=== PATIENT | male | born 1945 | race Caucasian/White ===

== ENCOUNTER 2023-11-21 08:39 | Outpatient (CLI) | payer OTHER, SELFPAY ==
[2023-11-21 10:29] LABS: Basophils Absolute Auto 0.1 K/mm3 (0.0-0.1); Basophils Percent Auto 0.8 % (0.2-1.2); Eosinophils Absolute Auto 0.5 K/mm3 (0-0.3); Eosinophils Percent Auto 8.2 % (0-4.4); Hematocrit 36.9 % (42.0-52.0); Hemoglobin 10.9 g/dL (14.0-18.0); Immature Granulocyte Absolute 0.01 K/mm3 (0.00-0.031); Immature Granulocyte Percent A 0.2 % (0-0.5); Lymphocytes Absolute Auto 1.42 K/mm3 (0.9-3.2); Lymphocytes Percent Auto 23.4 % (18.3-44.2); Mean Corpuscular HGB Conc 29.5 g/dl (32-36); Mean Corpuscular Volume 81.1 fl (80-100); Mean Platelet Volume 10.8 fl (7.4-10.4); Monocytes Absolute Auto 0.3 K/mm3 (0.1-0.6); Monocytes Percent Auto 5.6 % (2.6-8.5); Neutrophils Absolute Auto 3.8 K/mm3 (1.3-6.7); Neutrophils Percent Auto 61.8 % (45.5-73.1); Platelet Count Result 223 k/mm3 (150-375); Red Blood Count 4.55 M/mm3 (4.6-6.20); Red Cell Distribution Width 18.1 % (11.5-14.5); White Blood Count 6.1 K/mm3 (4.5-10.0)
[2023-11-21 10:50] LABS: Alanine Aminotransferase 15 U/L (6-50); Albumin Level 3.9 g/dL (3.5-5.1); Alkaline Phosphatase 86 U/L (38-126); Anion Gap 10 mmol/L (4-12); Aspartate Amino Transferase 39 U/L (17-59); Bilirubin,Total 0.4 mg/dL (0.2-1.3); Blood Urea Nitrogen 10 mg/dL (9-20); Calcium 8.5 mg/dL (8.4-10.2); Carbon Dioxide 23 mmol/L (22-30); Chloride 105 mmol/L (98-107); Estimated Glomerular Filt Rate > 60; Glucose 122 mg/dL (65-110); Potassium 3.8 mmol/L (3.4-5.0); Sodium 138 mmol/L (137-145)
[2023-11-21 10:54] LABS: Platelet Estimate Adequate (Adequate)
[2023-11-21 10:55] LABS: Anisocytosis 1+; Hypochromasia 1+; Ovalocytes 1+; Schistocytes None Seen
== END 2023-11-21 08:40 | disposition home or self-care (01) ==
PROVIDERS: PCP Internal Medicine; Visit Provider Nurse Practitioner
DX: M25.562 Pain in left knee (principal); G89.29 Other chronic pain; Z13.29 Encounter for screening for other suspected endocrine disorder
CPT/HCPCS: 36415; 80053; 85025

== ENCOUNTER 2024-06-23 08:49 | Outpatient (CLI) | payer OTHER, SELFPAY ==
--- NOTE | ~2024-06-23 | CT_ITS ---
EXAMINATION:CT diagnostic chest wo con DATE: 06/23/2024 09:12 INDICATION: Solitary pulmonary nodule. TECHNIQUE: Computed tomography (CT) of the chest was performed without intravenous contrast. Automate d exposure control and iterative reconstruction technique were employed. The dose-length product (DLP ) was 110.72 mGy-cm. COMPARISON: None. FINDINGS: There is mild emphysema. There is a 9 mm nodule in right middle lobe abutting the pleura. T here is a 6 mm nodule in right lower lobe. There is mild atelectasis on the left. A calcified left tiarra ng nodule and calcified left hilar lymph nodes are consistent with old granulomatous disease. No pleu ral effusion. The heart size is normal. There are coronary artery calcifications. No pericardial effu dmitry. There is a left chest wall pacer with leads in the right atrium and right ventricle. There is a small sliding hiatal hernia. There is mild bilateral gynecomastia. There is severe cervical and thor acic spondylosis. There is mild chronic anterior wedging of multiple vertebral bodies. IMPRESSION: 1. 9 mm pulmonary nodule suspicious for primary bronchogenic carcinoma. PET/CT or 3 month follow-up n oncontrast low-dose chest CT is recommended. Reviewed, dictated and finalized at location [facility] IMPRESSION: 1. 9 mm pulmonary nodule suspicious for primary bronchogenic carcinoma. PET/CT or 3 month follow-up noncontrast low-dose chest CT is recommended.
--- OUTSIDE RECORDS SUMMARY | 2024-06-23 09:33 | XMS_ITS | Referral Summary ---
Author Organization [facility] Address [address] [place] [address] Care Team Providers Care Senior Materials Analyst Name Role Phone Colleen Montes MD Primary Care Provider [phone] Kaveh Bass MD Unavailable [phone] Source Comments [facility],non-owned Affiliates and Associated Physician Practices is amultiple site organization consisting of ambulatory clinics and hospital sitesin [place] and [place]. This disclosure is being madepursuant to the Care Everywhere program and may not contain all information available regarding this patient. Last updated 18.[facility] Allergies No known active allergies Medications * Be aware that medications may not be up to date on this document. Alwaysverify current medications with the patient. 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 01/09/2018 Resolved Problems Problem Noted Date Diagnosed Date Resolved Date Lumbar stenosis with neurogenic claudication 8 03/22/2018 Spondylolisthesis, lumbar region 01/09/2018 03/22/2018 Social History Tobacco Use Types Packs/Day Years Used Date Smoking Tobacco: Every Day Cigarettes Smokeless Tobacco: Never Tobacco Cessation:Ready to Q uit: Yes; Counseling Given: Yes Alcohol Use Standard Drinks/Week Comments No 0 (1 standard drink = 0.6 oz pur e alcohol) Sex and Gender Information Value Date Recorded Sex Assigned at Not on file Gender Identity Not on file Sexual Orientation Not on file Last Filed Vital Signs Vital Sign Reading Time Taken Comments Blood Pressure 138/79 08/19/2018 8:41 AM CDT Pulse 77 08/19/2018 8:41 AM CDT Temperature 36.5 C (97.7 F) 08/19/2018 8:41 AM CDT Respiratory Rate 18 04/01/2018 8:27 AM 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 No 03/03/2018 Is person blind or have serious difficulty seein g? No 03/03/2018 Does person have serious dif ficulty walking/climbing stairs? No 03/03/2018 Does person have difficulty dressing/bathing? No 03/03/2018 Does person have difficulty doing errands alone? No 03/03/2018 Cognitive Status Response Date of Assessm ent Does person have difficulty concentrating/remembering/making decisions? No 03/03/2018 Plan of Treatment Not on file Medical Devices Implanted Type Area Independent Jeweler Device Identifier Shelf Expiration Date Model / Serial / Lot Interbody Infusion Device Implanted:Qty: 2 on 02/28/2018 by Trip Langley MD at [facility] N/A: Spine Lumbar Med[employer] Inc 07/05/2025 [id number] / / [id number] Screw Set Ti Spnl Brk Off Cd Hzn Implanted:Qty: 4 on 02/28/2018 by Trip Langley MD at [facility] N/A: Spine Lumbar Medtronic Sof[employer]or [employer] [id number] / / Screw 7.5mm 50mm Spne Ma Solera Cd Hzn Implanted:Qty: 2 on 02/28/2018 by Trip Langley MD at [facility] N/A: Spine Lumbar Medtronic Sof[employer]or [employer] [id number] / / Screw 7.5mm 45mm Spne Ma Solera Cd Hzn Implanted:Qty: 2 on 02/28/2018 by Trip Langley MD at [facility] N/A: Spine Lumbar Medtronic Sof[employer] [id number] / / David Spnl 35mm 5.5mm Cd Hzn Crv Cocrmo Implanted:Qty: 2 on 02/28/2018 by Trip Langley MD at [facility] N/A: Spine Lumbar Med[employer]onic Inc [id number] / / Advance Directives * Full Code (Latest Code Status on File) Date Activated Date Inactivated Comments 02/28/2018 2:07 PM 03/03/2018 4:02 PM * Full Code Date Activated Date Inactivated Comments 02/28/2018 6:36 AM 02/28/2018 2:07 PM Care Teams Senior Materials Analyst Relationship Specialty Start Date End Date Colleen Montes MD [address] [place] [address] PCP - General 01/07/18 Kaveh Bass MD [address] [id number] Wrecker Driver Cardiovascular Disease 01/09/18
--- OUTSIDE RECORDS SUMMARY | 2024-06-23 09:33 | XMS_ITS | Clinical Summary ---
Author Organization [facility] Address [address] [place] [address] Care Team Providers Care General Production Manager Name Role Phone Colleen Montes MD Primary Care Provider [phone] Kaveh Bass MD Unavailable [phone] Source Comments [facility],non-owned Affiliates and Associated Physician Practices is amultiple site organization consisting of ambulatory clinics and hospital sitesin [place], [place], [place] and [place]. This disclosure is being madepursuant to the Care Everywhere program and may not contain all information available regarding this patient. Last updated 18.[facility] Allergies No known active allergies Medications * [...] 8 03/22/2018 Spondylolisthesis, lumbar region 01/09/2018 03/22/2018 Family History Medical History Relation Name Comments Cancer - Other Daughter Cancer - Other Father Cancer - Other Mother Cancer - Other Sister Relation Name Status Comments Daughter Father Mother Sister Social History Tobacco Use Types Packs/Day Years [...] CDT Respiratory Rate 18 04/01/2018 8:27 AM SAFETY INVESTIGATOR Oxygen Saturation 100% 08/19/2018 8:41 AM CDT Inhaled Oxygen Concentration 21% 02/28/2018 6 :50 AM CDT Weight 77.7 kg (171 lb 4.8 oz) 08/19/2018 8:41 A M CDT Height 177.8 cm (5' 10 ) 08/19/2018 8:41 AM CDT Body Mass Index 24.58 08/19/2018 8:41 AM CDT Plan of Treatment Health Maintenance Due Date Last Done Comments MEDICARE AWV 12 MONTHS 1945 HEPATITIS C SCREENING 02/10/1965 DTAP/TDAP/TD VACCINES (1 - Tdap) 1966 PNEUMOCOCCAL VACCINE 50+ (1 of 2 - PCV) 1966 ZOSTER VACCINE (1 of 2) 1997 Respiratory Syncytial Virus (RSV) Vaccine Pt: or over 60 yrs (1 - 1-dose 75+ series) 2022 COVID-19 VACCINE (2023-2 5 season) 2024 INFLUENZA VACCINE (#1) 2024 DEPRESSION SCREENING 05/13/2024 HEPATITIS B VACCINE Aged Out No longe r eligible based on patient's age to complete this topic HIB VACCINE Aged Out No longer eligi ble based on patient's age to complete this topic HPV VACCINE Aged Out No longer eligi ble based on patient's age to complete this topic MENINGOCOCCAL (Group B) VACCINE Aged Out No longer eligible based on patient's age to complete this topic MENINGOCOCCAL VACCINE Aged Out No karo abram eligible based on patient's age to complete this topic Medical Devices Implanted Type Area Fur Stretcher Device Identifier Shelf Expiration Date Model / Serial / Lot Interbody Infusion Device Implanted:Qty: 2 on 02/28/2018 by Trip Langley MD at [facility] N/A: Spine Lumbar [employer] Inc 07/05/2025 [id number] / / [id number] Screw Set Ti Spnl Brk Off Cd Hzn Implanted:Qty: 4 on 02/28/2018 by Trip Langley MD at [facility] N/A: Spine Lumbar Medtronic Sof[employer]or [employer] [id number] / / Screw 7.5mm 50mm Spne Ma Solera Cd Hzn Implanted:Qty: 2 on 02/28/2018 by Trip Langley MD at [facility] N/A: Spine Lumbar Medtronic [employer] [id number] / / Screw 7.5mm 45mm Spne Ma Solera Cd Hzn Implanted:Qty: 2 on 02/28/2018 by Trip Langley MD at [facility] N/A: Spine Lumbar Medtronic [employer] [id number] / / David Spnl 35mm 5.5mm Cd Hzn Crv Cocrmo Implanted:Qty: 2 on 02/28/2018 by Trip Langley MD at [facility] N/A: Spine Lumbar [employer] Inc [id number] / / Advance Directives * Full Code (Latest Code Status on File) Date Activated Date Inactivated Comments 02/28/2018 2:07 PM 03/03/2018 4:02 PM * Full Code Date Activated Date Inactivated Comments 02/28/2018 6:36 AM 02/28/2018 2:07 PM Care Teams General Production Manager Relationship Specialty Start Date End Date Colleen Montes MD [address] [place] [address] PCP - General 01/07/18 Kaveh Bass MD [facility] [address] [address] Developmental Services Worker Cardiovascular Disease 01/09/18
--- OUTSIDE RECORDS SUMMARY | 2024-06-23 09:33 | XMS_ITS | Patient Health Summary ---
Author Organization [facility] Address [address] [place] [address] Care Team Providers Care Braider Operator Name Role Phone Colleen Montes MD Primary Care Provider [phone] Kaveh Bass MD Unavailable [phone] Note from [facility],non-owned Affiliates and Associated Physician Practices is amultiple site organization consisting of ambulatory clinics and hospital sitesin [place], [place], [place] and [place]. This disclosure is being madepursuant to the Care Everywhere program and may not contain all information available regarding this patient. Last updated 18.[facility] Allergies No known active allergies Medications * Be aware that medications may not be up to date on this document. Alwaysverify current medications with the patient. * carvedilol (COREG) 6.25 MG tablet Take 6.25 mg by mouth 2 times daily with morning and evening meal Reasons: Disease of the Muscle ofthe Heart * clopidogrel (PLAVIX) 75 MG tablet Take 75 mg by mouth once daily Reasons: Acute Coronary Syndrome * aspirin (ASPIRIN) 81 MG chew tablet Take 81 mg by mouth once daily * HYDROcodone-acetaminophen (NORCO) 5-325 MG tablet(Started 03/03/2018) Take 1 tablet by mouth every 6 hours as needed * acetaminophen (TYLENOL) 325 MG tablet(Started 03/03/2018) Take 1 tablet by mouth every 4 hours as needed Maximum allowable Acetaminophen amount = 4 Grams (4000 mg) / 24 hours. * docusate sodium (COLACE) 100 MG capsule(Started 03/03/2018) Take 1 capsule by mouth 2 times daily 1 refill remaining Active Problems Problem Noted Date Diagnosed Date [...] CDT Respiratory Rate 18 04/01/2018 8:27 AM [employer] Oxygen Saturation 100% 08/19/2018 8:41 AM CDT Inhaled Oxygen Concentration 21% 02/28/2018 6 :50 AM CDT Weight 77.7 kg (171 lb 4.8 oz) 08/19/2018 8:41 A M CDT Height 177.8 cm (5' 10 ) 08/19/2018 8:41 AM CDT Body Mass Index 24.58 08/19/2018 8:41 AM CDT Medical Devices Implanted Type Area Deputy County [employer] Device Identifier Shelf Expiration Date Model / Serial / Lot Interbody Infusion Device Implanted:Qty: 2 on 02/28/2018 by Trip Langley MD at [facility] N/A: Spine Lumbar [employer] 07/05/2025 [id number] / / [id number] Screw Set Ti Spnl Brk Off Cd Hzn Implanted:Qty: 4 on 02/28/2018 by Trip Langley MD at [facility] N/A: Spine Lumbar [employer] [id number] / / Screw 7.5mm 50mm Spne Ma Solera Cd Hzn Implanted:Qty: 2 on 02/28/2018 by Trip Langley MD at [facility] N/A: Spine Lumbar [employer] [id number] / / Screw 7.5mm 45mm Spne Ma Solera Cd Hzn Implanted:Qty: 2 on 02/28/2018 by Trip Langley MD at [facility] N/A: Spine Lumbar [employer] [id number] / / David Spnl 35mm 5.5mm Cd Hzn Crv [place] Implanted:Qty: 2 on 02/28/2018 by Trip Langley MD at [facility] N/A: Spine Lumbar [employer] [id number] / / Procedures * XR LUMBAR SPINE 2 OR 3VW(Performed 08/19/2018) Performed for S/P lumbar spinal fusion * XR LUMBAR SPINE 2 OR 3VW(Performed 05/20/2018) Performed for S/P lumbar spinal fusion * XR LUMBAR SPINE 2 OR 3VW(Performed 04/01/2018) Performed for S/P lumbar spinal fusion * BASIC METABOLIC PANEL (CALCIUM TOTAL)(Performed 03/02/2018) * CBC W/O DIFFERENTIAL(Performed 03/02/2018) * XR LUMBAR SPINE 2 OR 3VW(Performed 03/01/2018) Performed for Lumbar stenosis with neurogenic claudication * BASIC METABOLIC PANEL (CALCIUM TOTAL)(Performed 03/01/2018) * CBC W/O DIFFERENTIAL(Performed 03/01/2018) * PT EVAL AND TREAT(Performed 02/28/2018) * FL OREN SURGERY 60 MIN PLUS(Performed 02/28/2018) Performed for Lumbar stenosis with neurogenic claudication * FL OARM SURGERY(Performed 02/28/2018) Performed for Lumbar stenosis with neurogenic claudication * BLOOD GASES ART COMPLETE [facility] OR(Performed 02/28/2018) Performed for Lumbar stenosis with neurogenic claudication * BLOOD GASES ART COMPLETE [facility] OR(Performed 02/28/2018) Performed for Lumbar stenosis with neurogenic claudication * FUSION TRANSFORAMINAL LUMBAR INTERBODY (TLIF)(Performed 02/28/2018) Performed for Lumbar stenosis with neurogenic claudication, Spondylolisthesis, lumbar region * ARTERIAL LINE NOTE(Performed 02/28/2018) * ENDOTRACHEAL TUBE NOTE(Performed 02/28/2018) * PREPARE RBC LEUKOREDUCED UNIT(Performed 02/28/2018) Performed for Lumbar stenosis with neurogenic claudication * TYPE + SCREEN PANEL(Performed 02/28/2018) Performed for Spondylolisthesis, lumbar region * TYPE + SCREEN PANEL(Performed 02/25/2018) Performed for Spondylolisthesis, lumbar region, Lumbar stenosis with neurogenic claudication * PTT [facility](Performed 02/25/2018) Performed for Congestive heart failure, unspecified HF chronicity, unspecified heart failure type ,Spondylolisthesis, lumbar region, Lumbar stenosis with neurogenic claudication * URINALYSIS REFLEX TO MICROSCOPIC NO CULTURE(Performed 02/25/2018) Performed for Spondylolisthesis, lumbar region, Lumbar stenosis with neurogenic claudication * PREALBUMIN(Performed 02/25/2018) Performed for Spondylolisthesis, lumbar region, Lumbar stenosis with neurogenic claudication * PT-INR [facility](Performed 02/25/2018) Performed for Altered tissue perfusion related to edema , Spondylolisthesis, lumbar region, Lumbar stenosis with neurogenic claudication * CBC W AUTO DIFFERENTIAL(Performed 02/25/2018) Performed for CHF with cardiomyopathy , Spondylolisthesis, lumbar region, Lumbar stenosis with neurogenic claudication * COMPREHENSIVE METABOLIC PANEL(Performed 02/25/2018) Performed for Spondylolisthesis, lumbar region, Lumbar stenosis with neurogenic claudication * CULTURE URINE(Performed 02/25/2018) Performed for Pain , Spondylolisthesis, lumbar region, Lumbar stenosis with neurogenic claudication * XR SPINE ENTIRE 2 OR 3VW(Performed 02/11/2018) Performed for Spondylolisthesis, lumbar region * CT LUMBAR POST MYELOGRAM(Performed 01/30/2018) Performed for Spondylosis of lumbar region without myelopathy or radiculopathy, Spondylolisthesis, lumbar region * FL MYELOGRAM LUMBAR(Performed 01/30/2018) Performed for Spondylosis of lumbar region without myelopathy or radiculopathy, Spondylolisthesis, lumbar region * PT PTT PANEL(Performed 01/30/2018) Performed for Spondylosis of lumbar region without myelopathy or radiculopathy, Spondylolisthesis, lumbar region * CBC W AUTO DIFFERENTIAL(Performed 01/30/2018) Performed for Spondylosis of lumbar region without myelopathy or radiculopathy, Spondylolisthesis, lumbar region Results * XR LUMBAR SPINE 2 OR 3VW (08/19/2018 8:40 AM CDT) Only the most recent of4 resultswithin the time period is included. Anatomical Region Laterality Modality Spine Radiographic Arlene ging 08/19/2018 9:19 AM CDT Impressions 08/19/2018 9:47 AM CDT IMPRESSION: Instrumented posterior spinal fusion of L4-L5, unchanged. Mild retrolisthesis at L2-L3, L3-L4 and mild anterolisthesis at L4-L5, unchanged. Multilevel degenerative changes. Report dictated by Anupama Barrett MD (vice president marketing & development). I, Dr. JUAN GIVENS MD have personally reviewed and interpreted this examination/study. This report was electronically signed by JUAN GIVENS MD on 08/19/2018 9:47 AM . Narrative 08/19/2018 9:47 AM CDT EXAMINATION: XR LUMBAR SPINE 2 OR 3VW HISTORY: post Spinal Fusion COMPARISON: Lumbar spine radiograph dated on 05/20/2018 FINDINGS: There is no acute fracture. Instrumented posterior spinal fusion is again seen at L4-L5 with posterior rods, screws, and interbody fusion device. The hardware is intact. Mild retrolisthesis at L2-L3 and L3-L4 and mild anterolisthesis at L4-L5 are unchanged. Moderate to severe multilevel degenerative disc and facet joint disease is present. Mild scoliosis is noted. Vascular atherosclerotic calcification is present. The left hip arthroplasty is partially imaged. Cardiac lead is partially imaged. Procedure Note Juan Givens MD - 08/19/2018 EXAMINATION: XR LUMBAR SPINE 2 OR 3VW HISTORY: post Spinal Fusion COMPARISON: Lumbar spine radiograph dated on 05/20/2018 FINDINGS: There is no acute fracture. Instrumented posterior spinal fusion isagain seen at L4-L5 with posterior rods, screws, and interbody fusion device. The hardware is intact. Mild retrolisthesis at L2-L3 and L3-L4 and mild anterolisthesis at L4-L5 are unchanged. Moderate to severe multilevel degenerative disc and facet joint disease is present. Mild scoliosis is noted. Vascular atherosclerotic calcification is present. The left hip arthroplasty is partially imaged. Cardiac lead is partially imaged. IMPRESSION: Instrumented posterior spinal fusion of L4-L5, unchanged. Mild retrolisthesis at L2-L3, L3-L4 and mild anterolisthesis at L4-L5, unchanged. Multilevel degenerative changes. Report dictated by Anupama Barrett MD (vice president marketing & development). I, Dr. JUAN GIVENS MD have personally reviewed and interpreted this examination/study. This report was electronically signed by JUAN GIVENS MD on08/19/2018 9:47 AM . Trip Langley MD DIAGNOSTIC IMAGING O RDERABLES * (ABNORMAL) CBC W/O DIFFERENTIAL (03/02/2018 4:20 AM CDT) Only the most recent of2 resultswithin the time period is included. WBC 7.7 3.5 - 10.5 10 3/uL 03/02/2018 5:18 AM [facility] RBC 3.25(L) 4.30 - 5.70 10 6/uL 03/02/2018 5:18 AM [facility] Hemoglobin 10.3(L) 13.5 - 17.5 g/dL 03/02/2018 5:18 AM [facility] Hematocrit 31.5(L) 39.0 - 50.0 % 03/02/2018 5:18 AM [facility] MCV 96.9 81.0 - 97.0 fL 03/02/2018 5:18 AM [facility] MCH 31.7 28.0 - 34.0 pg 03/02/2018 5:18 AM [facility] MCHC 32.7 32.0 - 36.0 g/dL 03/02/2018 5:18 AM [facility] Platelet Count 145(L) 150 - 400 10 3/uL 03/02/2018 5:18 AM [facility] RDW-SD 50.3(H) 36.0 - 50.0 fL 03/02/2018 5:18 AM [facility] RDW-CV 14.0 11.2 - 14.8 % 03/02/2018 5:18 AM [facility] MPV 10.4 9.3 - 12.8 fL 03/02/2018 5:18 AM [facility] Blood BLOOD SPECIMEN / Unknown Lab Venipuncture / Unknown 03/02/2018 4:20 AM CDT 03/02/2018 5:06 AM CDT Lokesh Rock MD LAB - HEMATOLOG Y ORDERABLES [address] [phone] * (ABNORMAL) BASIC METABOLIC PANEL (CALCIUM TOTAL) (03/02/2018 4:20 AM CDT) Only the most recent of2 resultswithin the time period is included. BUN 13 7 - 26 mg/dL 03/02/2018 5:37 AM [facility] Creatinine 0.7 0.6 - 1.2 mg/dL 03/02/2018 5:37 AM [facility] Sodium 140 136 - 145 mmol/L 03/02/2018 5:37 AM [facility] Potassium 3.6 3.5 - 4.5 mmol/L 03/02/2018 5:37 AM [facility] Chloride 106 98 - 107 mmol/L 03/02/2018 5:37 AM [facility] CO2 24 22 - 29 mmol/L 03/02/2018 5:37 AM [facility] Glucose 96 70 - 115 mg/dL 03/02/2018 5:37 AM [facility] Calcium 8.2(L) 8.4 - 10.2 mg/dL 03/02/2018 5:37 AM [facility] Anion Gap 14 8 - 18 03/02/2018 5:37 AM [facility] BUN/Creatinine Ratio 19 7 - 23 03/02/2018 5:37 AM [facility] Osmolality Calculated 290 270 - 300 mOsm/kg 03/02/2018 5:37 AM [facility] eGFR >60 >60 mL/min/1.7 3 m2 03/02/2018 5:37 AM [facility] Blood BLOOD SPECIMEN / Unknown Lab Venipuncture / Unknown 03/02/2018 4:20 AM CDT 03/02/2018 5:06 AM CDT Lokesh Rock MD LAB - CHEMISTRY ORDERABLES [place] [id number], [place] [phone] * FL OREN SURGERY 60 MIN PLUS (02/28/2018 2:00 PM CDT) Narrative [facility] RADIOLOGY - 02/28/2018 2:18 PM CDT Fluoroscopy was used for this exam in the OR. Please see the Operative report. Trip Langley MD FLUOROSCOPY ORDERABL ES Performing Organization Address [facility] Co de Phone Number [facility] RADIOLOGY * FL OARM SURGERY LESS 60 MIN (02/28/2018 12:00 PM CDT) Narrative [facility] RADIOLOGY - 02/28/2018 12:46 PM CDT Fluoroscopy was used for this exam in the OR. Please see the Operative report. Trip Langley MD FLUOROSCOPY ORDERABL ES Performing Organization Address [facility] de Phone Number [facility] RADIOLOGY * (ABNORMAL) BLOOD GASES ART COMPLETE [facility] OR (02/28/2018 10:45 AM CDT) Only the most recent of2 resultswithin the time period is included. pH Arterial 7.40 7.35 - 7.45 02/28/2018 10:52 AM [facility] pCO2 Arterial 36 35 - 45 mmHg 02/28/2018 10:52 AM [facility] pO2 Arterial 160(H) 71 - 95 mmHg 02/28/2018 10:52 AM [facility] HCO3 Arterial 21.9(L) 22.0 - 26.0 mmol/L 02/28/2018 10:52 AM [facility] TCO2 Arterial 23.0(L) 25.0 - 29.0 mmol/L 02/28/2018 10:52 AM [facility] Base Excess Arterial -2.4(L) -2.0 - 2.0 mmol/L 02/28/2018 10:52 AM [facility] Hemoglobin Arterial 10.6(L) 13.5 - 17.5 g/dL 02/28/2018 10:52 AM [facility] Oxyhemoglobin Arterial 97.1 95.0 - 100.0 % 02/28/2018 10:52 AM CDT [facility] Carboxyhemoglobin 1.1 0.0 - 3.0 % 02/28/2018 10:52 AM [facility] Methemoglobin 0.2 0.0 - 2.0 % 02/28/2018 10:52 AM [facility] FI O2 Arterial 40.0 % 02/28/2018 10:52 AM [facility] Ionized Calcium Whole Blood 1.10 mmol/L 02/28/2018 10:52 AM [facility] Adjusted Ionized Calcium 1.10(L) 1.19 - 1.34 mmol/L 02/28/2018 10:52 AM [facility] Sodium Whole Blood 136 135 - 145 mmol/L 02/28/2018 10:52 AM [facility] Potassium Whole Blood 3.8 3.5 - 5.5 mmol/L 02/28/2018 10:52 AM [facility] Chloride Whole Blood 108 101 - 111 mmol/L 02/28/2018 10:52 AM [facility] Glucose Whole Blood 77 70 - 110 mg/dL 02/28/2018 10:52 AM [facility] Lactic Acid Whole Blood 0.6 0.5 - 3.4 mmol/L 02/28/2018 10:52 AM [facility] Blood ARTERIAL BLOOD SPECIMEN / Unknown Venipuncture / Unknown 02/28/2018 10:45 AM CDT 02/28/2018 10:50 AM CDT Krishna Parekh MD LAB - BLOOD GASES OR DERABLES Performing Organization Address [facility]/State/[facility] Co de Phone Number [address] [phone] * PREPARE (CROSSMATCH) RBC UNIT(S), 2 Units (02/28/2018 6:55 AM CDT) Unit Description LR Red Cells [facility] BLOOD BANK LAB Unit ABO A [facility] BLOOD BANK LAB Unit Rh POS [facility] BLOOD [facility]ANK LAB Product Code RL1 [facility] BLO OD BANK LAB Unit Donor # [id number] 5 [facility] BLOOD BANK LAB Unit Status released [facility] BLOO D BANK LAB Product Number [id number] [facility] B LOOD BANK LAB Blood Type Barcode 6200 [facility] BLOOD [facility]ANK LAB Unit Description LR Red Cells [facility] BLOOD BANK LAB Unit ABO A [facility] B[facility] Unit Rh POS [facility] BLOOD [facility] Product Code RL1 [facility] BLO OD BANK LAB Unit Donor # [id number] 3 [facility] BLOOD BANK LAB Unit Status released [facility] BLOO D BANK LAB Product Number [id number] [facility] B LOOD BANK LAB Blood Type Barcode 6200 [facility] BLOOD BANK LAB Blood Bank BLOOD SPECIMEN / Unknown 02/28/2018 6:55 AM CDT 02/28/2018 7:09 AM CDT Kenneth Whitney DO LAB - BLOOD BAN K ORDERABLES [facility] BLOOD BANK LAB [address] * TYPE + SCREEN PANEL (02/28/2018 6:55 AM CDT) Only the most recent of2 resultswithin the time period is included. Antibody Screen NEG 8 8:01 AM CDT [facility] BLOOD BANK LAB ABO Rh A POS 02/28/2018 8:01 AM CDT [facility] BLOOD BANK LAB Blood Bank BLOOD SPECIMEN / Unknown Venipuncture / Unknown 02/28/2018 6:55 AM CDT 02/28/2018 7:05 AM CDT Jaswinder Marcelo MD LAB - BLOOD BANK ORD ERABLES Performing Organization Address City/[facility]/ZIP Co de Phone Number [facility] BLOOD BANK LAB [address] * PTT [facility] (02/25/2018 12:36 PM CDT) APTT 30.5 23.0 - 38.4 Seconds 02/25/2018 1:21 PM CDT [facility] Comment: Suggested therapeutic range for full dose I.V. heparin therapy for venous thromboembolism is 66.0-91.0 seconds. Blood BLOOD SPECIMEN / Unknown Lab Venipuncture / Unknown 02/25/2018 12:36 PM CDT 02/25/2018 1:00 PM CDT Trip Langley MD LAB - COAGULATION OR DERABLES Performing Organization Address [facility] Co de Phone Number [address] [phone] * PT-INR [facility] (02/25/2018 12:36 PM CDT) PT 13.3 12.1 - 14.8 Seconds 02/25/2018 1:21 PM CDT [facility] INR 1.1 See Comment 02/25/2018 1:21 PM [facility] Comment: The suggested therapeutic range for standard coumadin (warfarin) therapy is an INR of 2.0-3.0. For high-risk patients (Mechanical Mitral Valve Prosthesis, etc.), the suggested prophylactic therapeutic range is an INR of 2.5-3.5. Blood BLOOD SPECIMEN / Unknown Lab Venipuncture / Unknown 02/25/2018 12:36 PM CDT 02/25/2018 1:00 PM CDT Trip Langley MD LAB - COAGULATION OR DERABLES Performing Organization Address [facility] Co de Phone Number [address] [phone] * (ABNORMAL) URINALYSIS REFLEX TO MICROSCOPIC NO CULTURE (02/25/2018 12:36 PM CDT) Color UA Yellow Straw, Yellow, Colorless, Light Yellow 02/25/2018 1:16 PM [facility] Clarity UA Hazy(A) Clear 02/25/2018 1:16 PM [facility] Specific [place] UA 1.019 1.001 - 1.030 02/25/2018 1:16 PM [facility] pH UA 5.5 5.0 - 8.0 02/25/2018 1:16 PM [facility] Protein UA 20(A) <=20 mg/dL 02/25/2018 1:16 PM [facility] Glucose UA Negative Negative mg/dL 02/25/2018 1:16 PM [facility] Ketone UA Negative Negative mg/dL 02/25/2018 1:16 PM [facility] Bilirubin UA Negative Negative mg/dL 02/25/2018 1:16 PM CDT [facility] Blood UA Negative Negative 02/25/2018 1:16 PM CDT [facility] Nitrite UA Negative Negative 02/25/2018 1:16 PM CDT [facility] Leukocyte Esterase Negative Negative 02/25/2018 1:16 PM CDT [facility] Urobilinogen UA 2.0 <2.0 mg/dL 8 1:16 PM CDT [facility] RBC UA 1 0 - 8 /HPF 02/25/2018 1:16 PM CDT [facility] WBC UA 1 0 - 2 /HPF 02/25/2018 1:16 PM CDT [facility] Mucus UA Many(A) None /LPF 02/25/2018 1:16 PM CDT [facility] Urine URINE SPECIMEN OBTAINED BY CLEAN CATCH PROCEDURE / Unknown Collection / Unknown 02/25/2018 12:36 PM CDT 02/25/2018 1:00 PM CDT Trip Langley MD LAB - URINALYSIS ORD ERABLES [facility] [address] [place] [address], [facility] [phone] * CULTURE URINE (02/25/2018 12:36 PM CDT) Culture Urine <10,000 CFU/mL urogenital erik MARKY 02/26/2018 2:56 PM CDT [facility]CRO[facility] Urine URINE SPECIMEN OBTAINED BY CLEAN CATCH PROCEDURE / Unknown Collection / Unknown 02/25/2018 12:36 PM CDT 02/25/2018 1:00 PM CDT Trip Langley MD LAB - MICROBIOLOGY O RDERABLES [facility] MICRO[facility] [address] [phone] * (ABNORMAL) CBC WITH DIFFERENTIAL (02/25/2018 12:36 PM CDT) Only the most recent of2 resultswithin the time period is included. WBC 6.2 3.5 - 10.5 3/uL 02/25/2018 1:17 PM [facility] RBC 4.51 4.30 - 5.70 10 6/uL 02/25/2018 1:17 PM [facility] Hemoglobin 14.4 13.5 - 17.5 g/dL 02/25/2018 1:17 PM [facility] Hematocrit 42.9 39.0 - 50.0 % 02/25/2018 1:17 PM [facility] MCV 95.1 81.0 - 97.0 fL 02/25/2018 1:17 PM [facility] MCH 31.9 28.0 - 34.0 pg 02/25/2018 1:17 PM [facility] MCHC 33.6 32.0 - 36.0 g/dL 02/25/2018 1:17 PM [facility] Platelet Count 195 150 - 400 10 3/uL 02/25/2018 1:17 PM [facility] RDW-SD 47.8 36.0 - 50.0 fL 02/25/2018 1:17 PM [facility] RDW-CV 13.7 11.2 - 14.8 % 02/25/2018 1:17 PM [facility] MPV 10.7 9.3 - 12.8 fL 02/25/2018 1:17 PM [facility] Neutrophils % 58.9 35.0 - 70.0 % 02/25/2018 1:17 PM [facility] Lymphocytes % 28.3 19.7 - 55.1 % 02/25/2018 1:17 PM [facility] Monocytes % 7.3 3.0 - 15.0 % 02/25/2018 1:17 PM [facility] Eosinophils % 5.0 0.0 - 6.0 % 02/25/2018 1:17 PM [facility] Basophil % 0.5 0.0 - 1.5 % 02/25/2018 1:17 PM [facility] Neutrophils Absolute 3.6 1.6 - 7.0 10 3/uL 02/25/2018 1:17 PM [facility] Lymphocyte Absolute 1.7 0.8 - 2.9 10 3/uL 02/25/2018 1:17 PM [facility] Monocytes Absolute 0.45 0.14 - 0.66 10 3/uL 02/25/2018 1:17 PM [facility] Eosinophils Absolute 0.31(H) 0.00 - 0.22 10 3/uL 02/25/2018 1:17 PM [facility] Basophils Absolute 0.03 0.00 - 0.06 10 3/uL 02/25/2018 1:17 PM [facility] Immature Granulocytes % 0.2 0.0 - 1.0 % 02/25/2018 1:17 PM [facility] Blood BLOOD SPECIMEN / Unknown Lab Venipuncture / Unknown 02/25/2018 12:36 PM CDT 02/25/2018 1:00 PM T Trip Langley MD LAB - HEMATOLOGY ORD ERABLES Performing Organization Address City/State/[facility] Co de Phone Number [facility] [address] [place] [address] * COMPREHENSIVE METABOLIC PANEL (02/25/2018 12:36 PM T) BUN 15 7 - 26 mg/dL 02/25/2018 1:35 PM [facility] Creatinine 0.8 0.6 - 1.2 mg/dL 02/25/2018 1:35 PM [facility] Sodium 138 136 - 145 mmol/L 02/25/2018 1:35 PM [facility] Potassium 4.0 3.5 - 4.5 mmol/L 02/25/2018 1:35 PM [facility] Chloride 105 98 - 107 mmol/L 02/25/2018 1:35 PM [facility] CO2 22 22 - 29 mmol/L 02/25/2018 1:35 PM [facility] Glucose 77 70 - 115 mg/dL 02/25/2018 1:35 PM [facility] Calcium 9.4 8.4 - 10.2 mg/dL 02/25/2018 1:35 PM [facility] Protein Total 7.6 6.0 - 8.3 g/dL 02/25/2018 1:35 PM [facility] Albumin 3.9 3.4 - 5.0 g/dL 02/25/2018 1:35 PM [facility] Bilirubin Total 0.6 0.2 - 1.2 mg/dL 02/25/2018 1:35 PM [facility] Alkaline Phosphatase 78 40 - 150 Units/L 02/25/2018 1:35 PM [facility] ALT 17 0 - 55 Units/L 02/25/2018 1:35 PM [facility] AST 24 5 - 34 Units/L 02/25/2018 1:35 PM [facility] Anion Gap 15 8 - 18 02/25/2018 1:35 PM [facility] BUN/Creatinine Ratio 19 7 - 23 02/25/2018 1:35 PM [facility] Osmolality Calculated 286 270 - 300 mOsm/kg 02/25/2018 1:35 PM [facility] Albumin/Globulin Ratio 1.1 1.1 - 2.3 02/25/2018 1:35 PM [facility] eGFR >60 >60 mL/min/1.7 3 m2 02/25/2018 1:35 PM [facility] Blood BLOOD SPECIMEN / Unknown Lab Venipuncture / Unknown 02/25/2018 12:36 PM CDT 02/25/2018 1:00 PM CDT Trip Langley MD LAB - CHEMISTRY [facility] [address] [phone] * PREALBUMIN (02/25/2018 12:36 PM CDT) Prealbumin 26 16 - 45 mg/dL 02/25/2018 1:36 PM [facility] Blood BLOOD SPECIMEN / Unknown Lab Venipuncture / Unknown 02/25/2018 12:36 PM CDT 02/25/2018 1:00 PM CDT Trip Langley MD LAB - CHEMISTRY [facility] [address] [phone] * XR SPINE ENTIRE 2 OR 3VW (02/11/2018 1:27 PM CDT) Anatomical Region Laterality Modality Radiographic Arlene ging 02/11/2018 1:47 PM CDT Impressions 02/11/2018 2:05 PM CDT IMPRESSION: Multilevel degenerative disc and joint disease. Dictated by Eduardo Hadier DO (vice president marketing & development). Dr. JUAN Potter MD have personally reviewed and interpreted this examination/study. This report was electronically signed by JUAN GIVENS MD on 02/11/2018 2:05 PM . Narrative 02/11/2018 2:05 PM CDT EXAMINATION: XR SPINE ENTIRE 2 OR 3VW HISTORY: Back pain COMPARISON: No prior study is available for comparison. FINDINGS: Left subclavian approach cardiac device is partially imaged. A left hip arthroplasty is identified. Mild lumbar scoliosis is noted. The usual cervical lordosis is reversed. The sagittal vertical axis is +5 cm. There is mild retrolisthesis at L2-3 and L3-4 and mild anterolisthesis at L4-5. Moderate to severe lumbar, mild thoracic, and moderate cervical degenerative change is noted. There is pelvic tilt with the right iliac crest measuring 1.7 cm higher than the left. Procedure Note Juan Givens MD - 02/11/2018 EXAMINATION: XR SPINE ENTIRE 2 OR 3VW HISTORY: Back pain COMPARISON: No prior study is available for comparison. FINDINGS: Left subclavian approach cardiac device is partially imaged. A left hip arthroplasty is identified. Mild lumbar scoliosis is noted. The usual cervical lordosis is reversed. The sagittal vertical axis is +5 cm. There is mild retrolisthesis atL2-3 and L3-4 and mild anterolisthesis at L4-5. Moderate to severe lumbar,mild thoracic, and moderate cervical degenerative change is noted. There is pelvic tilt with the right iliac crest measuring 1.7 cm higher than the left. IMPRESSION: Multilevel degenerative disc and joint disease. Dictated by Eduardo Haider DO (vice president marketing & development). Dr. JUAN Potter MD have personally reviewed and interpreted this examination/study. This report was electronically signed by JUAN GIVENS MD on02/11/2018 2:05 PM . Trip Langley MD DIAGNOSTIC IMAGING O RDERABLES * CT LUMBAR POST MYELOGRAM (01/30/2018 11:03 AM CDT) Anatomical Region Laterality Modality Computed Tomogra phy 01/30/2018 1:35 PM CDT Impressions 01/30/2018 1:43 PM CDT 1. L4-5 moderately severe central spinal stenosis with bilateral L5 nerve root impingements due to combination of degenerative factors. 2. Multifocal disc bulges as described. 3. Diffuse degenerative disc disease. Reading Radiologist: Shane Bah MD on 01/30/2018 at 1:43 PM Narrative 01/30/2018 1:[address] lumbar spine post myelogram DATE: 01/30/2018. INDICATION: Lumbar radiculopathy. TECHNIQUE: Multidetector CT through the lumbar spine following intrathecal contrast. Refer to the myelogram report for procedural details. Comparisons: None. Findings: At T11-12 there is a right paracentral disc bulge deforming the thecal sac and touching the cord but without central or foraminal stenosis. At T12-L1 a broad-based disc bulge slightly deforms the thecal sac but does not produce central or foraminal stenosis. At L1-2 the disc is desiccated and flattened. There is a mild broad-based disc bulge deforming the thecal sac but without central stenosis. The left neural foramen is narrowed due to combination of disc bulging and facet hypertrophy. At L2-3 the disc is desiccated and flattened. A broad-based disc spur complex slightly deforms the thecal sac. The left neural foramen is narrowed due to a combination of disc bulging and facet hypertrophy. At L3-4 there is chronic degenerative disc disease with loss of interspace height and periarticular spurs. Broad-based disc bulge deforms the thecal sac but without central stenosis. The right neural foramen is narrowed but is not stenotic. The left neural foramen is widely patent. At L4-5 there is chronic degenerative disc disease with loss of interspace height. A broad-based disc bulge and ligamentum flavum hypertrophy are accompanied by 6 mm of grade 1 degenerative subluxation. These factors combine to produce moderately severe central stenosis posterior to the L5 vertebral body. Contrast is almost completely excluded from the thecal sac at this level. Both neural foramina are narrowed. There is also mass effect and impingement on both L5 nerve roots within the spinal canal. At L5-S1 the disc is desiccated and flattened. There is a mild broad-based disc bulge slightly deforming the thecal sac without central or foraminal stenosis. Both neural foramina are mildly narrowed but are not stenotic. Procedure Note Shane Bah MD - 01/30/2018 CT lumbar spine post myelogram DATE: 01/30/2018. INDICATION: Lumbar radiculopathy. TECHNIQUE: Multidetector CT through the lumbar spine following intrathecal contrast. Refer to the myelogram report for procedural details. Comparisons: None. Findings: At T11-12 there is a right paracentral disc bulge deforming the thecal sac and touching the cord but without central or foraminal stenosis. At T12-L1 a broad-based disc bulge slightly deforms the thecal sac but does not produce central or foraminal stenosis. At L1-2 the disc is desiccated and flattened. There is a mild broad-based disc bulge deforming the thecal sac but without central stenosis. The left neural foramen is narrowed due to combination of disc bulging and facet hypertrophy. At L2-3 the disc is desiccated and flattened. A broad-based disc spur complex slightly deforms the thecal sac. The left neural foramen is narrowed due to a combination of disc bulging and facet hypertrophy. At L3-4 there is chronic degenerative disc disease with loss of interspace height and periarticular spurs. Broad-based disc bulge deforms the thecal sac but without central stenosis. The right neural foramen is narrowed but is not stenotic. The left neural foramen is widely patent. At L4-5 there is chronic degenerative disc disease with loss of interspace height. A broad-based disc bulge and ligamentum flavum hypertrophy are accompanied by 6 mm of grade 1 degenerative subluxation. These factors combine to produce moderately severe central stenosis posterior to the L5 vertebral body. Contrast is almost completely excluded from the thecal sac at this level. Both neural foramina are narrowed. There is also mass effect and impingement on both L5 nerve roots within the spinal canal. At L5-S1 the disc is desiccated and flattened. There is a mild broad-based disc bulge slightly deforming the thecal sac without central or foraminal stenosis. Both neural foramina are mildly narrowed but are not stenotic. IMPRESSION 1. L4-5 moderately severe central spinal stenosis with bilateral L5 nerve root impingements due to combination of degenerative factors. 2. Multifocal disc bulges as described. 3. Diffuse degenerative disc disease. Reading Radiologist: Shane Bah MD on 01/30/2018 at 1:43 PM Trip Langley MD CT ORDERABLES * FL MYELOGRAM LUMBAR (01/30/2018 10:40 AM CDT) Anatomical Region Laterality Modality Spine X-Ray Angiograph y Cerebral spinal fluid 01/30/2018 11:35 AM CDT Impressions 01/30/2018 11:40 AM CDT Successful lumbar puncture under fluoroscopic guidance at L2-3 and intrathecal administration of contrast for lumbar myelogram. I, Dr. Santiago, performed/was present throughout the procedure. Reading Radiologist: Michelle Santiago MD on 01/30/2018 at 11:40 AM Narrative 01/30/2018 11:40 AM CDT EXAMINATION: Lumbar puncture (LP) under fluoroscopic guidance for lumbar myelogram HISTORY: 72-year-old male with chronic back pain referred to interventional radiology for lumbar myelogram. OPERATORS: 1. Dr. Santiago, Attending Physician 2. Dr. Bojorquez, Resident Physician TECHNIQUE: The risks and benefits of the lumbar puncture and myelography including, but not limited to, infection, bleeding, seizure, epidural hematoma, post spinal headache, cerebrospinal fluid (CSF) leak requiring blood patch procedure, nausea, vomiting, irritation or damage to nerves causing pain or permanent injury were discussed with with the patient. After alternatives were discussed and the opportunity to ask questions was provided, the patient acknowledged understanding, gave verbal and written consent, and wished to proceed. The L2-3 level was localized with fluoroscopy. The skin overlying this level was then sterilely prepped, draped, and infiltrated with 1% lidocaine for local anesthesia. Under intermittent fluoroscopic guidance, a 22 gauge 3.5 inch spinal needle was inserted into the thecal sac at this level and 15 mL of Isovue-M 200 was instilled. Prone, lateral, and oblique fluoroscopic images of the lumbar spine were obtained and then the patient was taken to the CT scanner where CT of the lumbar spine was performed. The patient tolerated the procedure well. The patient was then transferred to the holding area for further observation and two hours of bedrest. FLUOROSCOPY TIME: 0.57 minutes FINDINGS: Fluoroscopic images confirm intrathecal injection with contrast flowing freely in the intradural-extramedullary space. The remainder of the findings are fully characterized on the subsequently performed CT (please see separate report for details). Procedure Note Michelle Santiago MD - 01/30/2018 EXAMINATION: Lumbar puncture (LP) under fluoroscopic guidance for lumbar myelogram HISTORY: 72-year-old male with chronic back pain referred to interventional radiology for lumbar myelogram. OPERATORS: 1. Dr. Santiago, Attending Physician 2. Dr. Bojorquez, Resident Physician TECHNIQUE: The risks and benefits of the lumbar puncture and myelography including, but not limited to, infection, bleeding, seizure, epidural hematoma, post spinal headache, cerebrospinal fluid (CSF) leak requiring blood patch procedure, nausea, vomiting, irritation or damage to nerves causing pain or permanent injury were discussed with with the patient. After alternatives were discussed and the opportunity to ask questions was provided, the patient acknowledged understanding, gave verbal and written consent, and wished to proceed. The L2-3 level was localized with fluoroscopy. The skin overlying this level was then sterilely prepped, draped, and infiltrated with 1% lidocaine for local anesthesia. Under intermittent fluoroscopic guidance, a 22 gauge 3.5 inch spinal needle was inserted into the thecal sac at this level and 15 mL of Isovue-M 200 was instilled. Prone, lateral, and oblique fluoroscopic images of the lumbar spine were obtained and then the patient was taken to the CT scanner where CT of the lumbar spine was performed. The patient tolerated the procedure well. The patient was then transferred to the holding area for further observation and two hours of bedrest. FLUOROSCOPY TIME: 0.57 minutes FINDINGS: Fluoroscopic images confirm intrathecal injection with contrast flowing freely in the intradural-extramedullary space. The remainder of the findings are fully characterized on the subsequently performed CT (please see separate report for details). IMPRESSION Successful lumbar puncture under fluoroscopic guidance at L2-3 and intrathecal administration of contrast for lumbar myelogram. I, Dr. Santiago, performed/was present throughout the procedure. Reading Radiologist: Michelle Santiago MD on 01/30/2018 at 11:40 AM Trip Langley MD FLUOROSCOPY ORDERABL ES * PT PTT PANEL (01/30/2018 9:05 AM CDT) PT 10.2 9.5 - 11.6 sec 01/30/2018 9:[address] [facility] INR 0.9 0.9 - 1.1 01/30/2018 9:[address] [facility] PTT 21.6 21.0 - 32.0 sec 01/30/2018 9:[address] [facility] Blood BLOOD SPECIMEN / Unknown Venipuncture / Unknown 01/30/2018 9:05 AM CDT 01/30/2018 9:[address] [facility] - 01/30/2018 9:25 AM CDT Conventional Warfarin Anticoagulant Therapy: INR Reference Range: 2.0-3.0 Intensive Warfarin Anticoagulant Therapy: INR Reference Range: 2.5-3.5 Heparin Therapeutic Range for PTT: 47.7 - 68.6 seconds. Michelle Santiago MD LAB - COAGULATION ORDERABLES Performing Organization Address [facility]/State/ZIP Co de Phone Number [facility] [address] [place] [address] Care Teams Braider Operator Relationship Specialty Start Date End Date Colleen Montes MD [address] [place] [address] PCP - General 01/07/18 Kaveh Bass MD [facility] [address] Development Technician Cardiovascular Disease 01/09/18
--- OUTSIDE RECORDS SUMMARY | 2024-06-23 09:33 | XMS_ITS | Continuity of Care Document ---
Author Organization [facility] Address [address] [place] [address] Phone Care Team Providers Care Bear Keeper Name Role Phone Raquel Valencia MD Unavailable Unavailable Allergies, Adverse Reactions, Alerts Substance Reaction Status Criticality No Known allergies Medications Medication Instructions Dosage Effective Dates (start - stop) Status Comments IBUPROFEN (unknown strength) Not Available - Active HYDROCODONE-ACETAMINOP HEN (unknown strength) Not Available - Active LISINOPRIL (unknown strength) Not Available - Active LIQUID B-12 (unknown strength) Not Available - Active Procedures Procedure Date MU Reporting OFFICE/OUTPATIENT VISIT NEW Advance Directives Directive Yes / No Effective Date File Name Resuscitation Not Answered N/A N/A Life Support Not Answered N/A N/A Intubation Not Answered N/A N/A Antibiotics Not Answered N/A N/A IV Fluid Support Not Answered N/A N/A Tube Feed Not Answered N/A N/A Other Directive N/A N/A WARNING:The information contained in this section is historical and is provided for information only and does not constitute a legal document or any assurance that the information is still accurate. Please verify the information with the foreman of the legal document before using it for clinical purposes. Encounters Encounter Description Practice Location Reason(s) For Visit Diagnoses Date Provider Providers Copied on Encounter OFFICE/OUTPAT IENT VISIT NEW [facility] , [address], [place], [address], [place] tel:[phone] [facility] Hypertension, UnspecifiedOs teoarthrosis, unspecified whether generalized or localized, involving lower leg 3 Erik García. [address] [place], [place], [id number] . tel: [phone] Referring Provider: [facility], [address] [facility] [address], [place], [address] . tel:[phone] Family History Family Member Type Diagnosis Age At Onset Problem (finding) Family history of Cance r, unknown Payers Payer name Insurance type Covered democrat ID Authoriza tion(s) No Information Social History Type Description Quantity Date Captured Comments Alcohol Use Details beer Caffeine Use Details Unknown Tobacco Use Status No Information Smoking Status Current every day smoker Smoking Tobacco Use Details Cigarette: No Details Available Cigarette: No Details Available Sex Male Vital Signs Date / Time: Height Weight BMI Pulse Rate Blood Pressure Temperature Respiratory Rate Body Surface Area Head Circumference Head Circ. Percentile Wt./Pako. Percentile BMI percentile Pulse Ox Inhaled Ox 10:20 AM 70.00 in 160.00 lbs 22.9 6 kg/m eter (2) 152/103 mm[Hg] Chief Complaint And Reason For Visit No Information Reason For Referral Reason For Referral No Information Plan Of Treatment Date Type Action Status Referral Ordered: RADEX KNE COMPL 4/MORE VIEWS RT knee ordered History Of Present Illness Encounter Date Complaint History Of Prese nt Illness No Information Functional Status Date Functional Assessmen t No Information Instructions Date Instruction Additional Infor mation OTC anti-inflammatories (NSAIDs) Activity as tolerated Assessments Type Assessment Date No Information Patient Care Teams Name Effective Dates (start - stop) Status Members No Information
--- OUTSIDE RECORDS SUMMARY | 2024-06-23 09:33 | XMS_ITS | Continuity of Care Document ---
Author Organization [employer] Address [address] [place] [address] Phone Care Team Providers Care Senior Technical Writer Name Role Phone Yves Russ MD Unavailable Unavailable Allergies, Adverse Reactions, Alerts Substance Reaction Status Criticality No Known Drug Allergies Active No I nformation Procedures Procedure Date FALL RISK ASSESSMENT DOC'D PRES/ABSN URINE INCON ASSESS Pt inelig neg scrn depres OFFICE [id number] BODY MASS INDEX DOCD SYST BP >= 140 MM HG6 IT DIAST BP 80-89 MM HG FALL RISK ASSESSMENT DOC'D PRES/ABSN URINE INCON ASSESS PPPS, subseq visit BODY MASS INDEX DOCD SYST BP LT 130 MM HG DIAST BP < 80 MM HG Advance Directives Directive Yes / No Effective Date File Name Life Support Not Answered N/A N/A Intubation [...] Diagnoses Date Provider Providers Copied on Encounter [facility], [address], [place], [place], [address] , tel: [phone] [facility] No Information 3 Jeb Marinelli. [address] [place] [address], [address] , [place], [place], [address] , . tel: [phone] [employer], [address], [place], [place], [address] , tel: [phone] [facility] Age-related nuclear cataract, bilateral 3 Jeb Marinelli. [address] [place] [address], [address] , [place], [place], [address] , [place]. tel: [phone] OFFICE [id number] PANDED [employer], [address], [place], [place], [address] , tel: [phone] [facility] Chronic Conditions (chief complaint) Acute exacerbation of chronic low back painNeck pain 1 Jeb Marinelli. [address] [place] [address], [address], [place], [place], [address] , . tel: [phone] Referring Provider: Yves Russ [address] [place] [address] [address] , [place], [address] . tel:[phone] [employer], [address] [facility], [place], [place], [address] , tel: [phone] [facility] Medicare preventive (chief complaint)C hronic Conditions (chief complaint) Medicare annual wellness visit, subsequentDilated cardiomyopathyAICD (automatic cardioverter/defibri llator) presentAortic atherosclerosisPrima ry osteoarthritis involving multiple jointsSmokerScreenin g for prostate cancerEncounter for immunization 1 Jeb Marinelli. [address] [place] [address], [address] , [place], [place], [address] , . tel: [phone] Referring Provider: Yves Russ [address] [place] [address] [address] , [place], [address] . tel:[phone] [employer], [address] [facility], [place], [place], [address] , tel: [phone] [facility] AICD (automatic cardioverter/defibri llator) presentAortic atherosclerosisCardi omyopathy, unspecified typeSmokerPrimary osteoarthritis involving multiple jointsHyperlipidemia , unspecified hyperlipidemia typeScreening PSA (prostate specific antigen) Yoav Porsha. [address] [address] , [facility] [address], [place], [place], [address] . tel: [phone] Referring Provider: Yves Russ, [address] [place] [address] [address], [place], [address] . tel:[phone] [facility], [address], [place], [place], [address] , tel: [phone] [facility] Hemorrhoids without complicationAortic atherosclerosisSmoke rCardiomyopathy, unspecified typeUnspecified osteoarthritis, unspecified siteRight hip pain Yoav Porsha. [address] [address] , [facility] [address], [place], [place], [address] . tel: [phone] Referring Provider: Yves Russ [address] [place] [address] [address] , [place], [address] . tel:[phone] [facility], [address], [place], [place], [address] , tel: [phone] [facility] Sciatica, right sideSmokerChronic obstructive pulmonary disease, unspecified COPD type Yoav Porsha. [address] [address] , [facility] [address], [place], [place], [address] . tel: [phone] Referring Provider: Yves Russ [address] [place] [address] [address], [place], [address] . tel:[phone] [employer], [address], [place], [place], [address] , tel: [phone] [facility] Nicotine dependence, unspecified, uncomplicatedCardiom yopathy, unspecifiedPresence of automatic (implantable) cardiac defibrillatorAtheros clerotic heart disease of mentasta coronary artery without angina pectorisChronic obstructive pulmonary disease, unspecifiedBilateral sciatica Yoav Porsha. [address] [address] , [address], [place], [place], [address] . tel: [phone] Referring Provider: Yves Russ, [address] [facility] [address], [place], [address] . tel:[phone] [facility], [address], [place], [place], [address] , tel: [phone] [facility] Arteriosclerotic coronary artery diseaseCardiomyopath y, unspecified typeSmokerCoughEssen tial hypertensionCardiac defibrillator in place 6 Yoav Porsha. [address] [facility], [address], [place], [place], [address] . tel: [phone] Referring Provider: Yves Russ, [address] [facility] [address], [place], [address] . tel:[phone] Family History Family Member Type Diagnosis Age At Onset Problem (finding) Family history of stoma ch cancer Problem (finding) Family history of malignant neoplasm of pharynx Problem (finding) Family history of malignant neoplasm of kidney Immunizations Vaccine Date Status Comments Fluzone Quad , preservative free, split virus, 0.5mL dosage administered Source: New Immuniza tion Record Pneumococcal polysaccharide PPV23 administered Source: New Immuniza tion Record Payers Payer name Insurance type Covered democrat ID Authoriza tion(s) [facility] [id number] MEDICARE MB [id number] MEDICARE MB [id number] Social History Type Description Quantity Date Captured Comments Alcohol Use Details Unknown Caffeine Use Details Unknown Tobacco Use Status Smoking Status No Information Sex Male Chief Complaint And Reason For Visit No Information Reason For Referral Reason For Referral No Information Plan Of Treatment Date Type Action Status Goal Tobacco cessation counseling completed Goal Tobacco cessation counseling completed Referral Referred To: Misael Kincaid [address] [place], [phone] Ordered: Referrals: Ophthalmology. Misael Kincaid. Evaluation/diagnostic/treatment - Level 3 Appointment date/timeframe: 05/22/2022 ordered Patient Education High Cholesterol: Care Instructions completed History Of Present Illness Encounter Date Complaint History Of Keven nt Illness Chronic Conditions *See Chronic Conditions HPI Chronic Conditions *See Chronic Conditions HPI Medicare preventive The patient has not felt depressed and has had interest and pleasure doing things recently. Functional Status: (Functional status has not changed) on 05/23/2020. Cognitive Status: (Cognitive status has not changed) on 05/23/2020. The ''Up and Go'' test took less than 30 seconds and the patient does not need help with activities of daily living. The patient is at risk for falls. The patient has not fallen in the last year. The fall(s) did not result in injury. Patient's activity level is moderate. Patient exercises 3-4 times/week. Relevant history is positive for tobacco use. Patient is a former alcohol user. Functional Status Date Functional Assessmen t No Information Instructions Date Instruction Additional Infor mation OK to use heat and s ee if the Celebrex helps. If not consider physical therapy. Related to Neck pain Continue light duty and since Tylenol not helping try Celebrex. Related to Acute exacerbation of chronic low back pain Fall Risk Prevention Urinary Incontinence Disease [facility]. Related to Scre ening for prostate cancer Declined immunizations today. Re lated to Encounter for immunization Continue a healthy d iet, exercise, and weight loss as appropriate. Related to Primary osteoarthritis involving multiple joints Continue good foot care. Related to Aortic atherosclerosis F/u with cardiology. Related to AICD (automatic cardioverter/defibrillator) present Continue current med ications for now. Related to Dilated cardiomyopathy Get appropriate vaccines. Relate d to Medicare annual wellness visit, subsequent Fall Risk Prevention Disease process Urinary Incontinence Counseled on dietary changes Counseled on weight reduction Assessments Type Assessment Date No Information Patient Care Teams Name Effective Dates (start - stop) Status Members No Information
--- OUTSIDE RECORDS SUMMARY | 2024-06-23 09:34 | XMS_ITS | CONTINUITY OF CARE DOCUMENT ---
Author Name madeline correa Address Unknown Organization [facility] Address [address] [place] [address] Phone [phone] Care Team Providers Care Tar Pot Man Name Role Phone Shelia LÓPEZ, Kaveh Unavailable [phone] Kaveh Bass MD Unavailable ESTHER HERCULES DO Unavailable [phone] PROBLEMS Condition Status Date Provider Notes Carotid arterial disease, 50 -69% CLAUS w/ ulcerated plaque active Abel Nguyễn PVD with claudication active Kaveh giles MD Pre op cardiovascular exam active Renny Fairme dzai Dizziness active Renny Nelsonzasampson Ventricular tachycardia active Tim Brown Back pain lumbar active Jim Jaime Status Post Biotronik dc (MRI Safe) ICD active Jim Jaime Chest pain active Kaveh Bass MD Hyperlipidemia active Kaveh Bass MD CHF active Kaveh Bass MD AMI, subendocardial active Jignesh Sanchez MD CARDIOMYOPATHY; active Jignesh Sanchez MD CAD active Jignesh Sanchez MD Tobacco use active Tim Brown HTN essential active Jignesh Sanchez MD ENCOUNTERS Date Type Provider Location Encounter Diag nosis - In-person encounter Office Visit Kaveh Bass MD [facility] PVD with claudication - In-person encounter Office Visit Kaveh Bass MD [facility] Pre op cardiovascular exam - In-person encounter Office Visit Kaveh Bass MD [facility] Dizziness - In-person encounter Office Visit Kaveh Bass MD [facility] Tobacco use - In-person encounter Office Visit Kaveh Bass MD [facility] Ventricular tachycardia - In-person encounter Office Visit Kaveh Bass MD [facility] - In-person encounter Office Visit Kaveh Bass MD [facility] Status Post Biotronik dc (MRI Safe) ICD - In-person encounter Office Visit Kaveh Bass MD [facility] - In-person encounter Office Visit Kaveh Bass MD [facility] Back pain lumbar - In-person encounter Office Visit Kaveh Bass MD [facility] - In-person encounter Office Visit Kaveh Bass MD [facility] - In-person encounter Office Visit Kaveh Bass MD [facility] - In-person encounter Office Visit Kaveh Bass MD [facility] - In-person encounter Office Visit Kaveh Bass MD [facility] Tobacco useCHFHyperlipidemiaChest pain - In-person encounter Office Visit Jignesh Sanchez MD [facility] HTN essentialTobacco useCADCARDIOMYOPATHY;AMI, subendocardial VITAL SIGNS Date Observation Value Provider Body Mass Index (Ratio) 23.96 kg/m2 Manuel Bass MD blood pressure, cuff size regular Ke rri Gruenenfelder blood pressure, diastolic 80 mm[Hg] Ke rri Gruenenfelder blood pressure, systolic 104 mm[Hg] Henrry ri Gruenenfelder oxygen saturation, oximetry 97 % Jeny Gruenenfelder respiratory rate E&M 12 /min Jeny G ruenenfelder pulse rate 74 /min Jeny Gruenenfe lder weight E&M 167 [lb_av] Jeny Gruenenfe lder height E&M 70 [in_i] Jeny Gruenenfe er Body Mass Index (Ratio) 23.10 kg/m2 Renny Bell blood pressure, cuff size regular Ke rri Gruenenfelder blood pressure, diastolic 80 mm[Hg] Ke rri Gruenenfelder blood pressure, systolic 146 mm[Hg] Henrry ri Gruenenfelder oxygen saturation, oximetry 94 % Jeny Gruenenfelder respiratory rate E&M 12 /min Jeny G ruenenfelder pulse rate 70 /min Jeny Gruenenfe lder weight E&M 161 [lb_av] Jeny Gruenenfe lder height E&M 70 [in_i] Jeny Gruenenfe er Body Mass Index (Ratio) 24.39 kg/m2 Renny Ahmedzasampson blood pressure, diastolic 74 mm[Hg] Li nkLogic blood pressure, systolic 135 mm[Hg] Patricia kLogic blood pressure, diastolic 74 mm[Hg] An sapna Yeung blood pressure, systolic 135 mm[Hg] Any a Gamal blood pressure, cuff size large An sapna Yeung oxygen saturation, oximetry 96 % Марина pulse rate 81 /min Марина Gamal weight E&M 170 [lb_av] Марина height E&M 70 [in_i] Марина Gamal Body Mass Index (Ratio) 24.53 kg/m2 Taew on Kevin blood pressure, cuff size large Ke rri Gruenenfelder blood pressure, diastolic 60 mm[Hg] Ke rri Gruenenfelder blood pressure, systolic 110 mm[Hg] Ker ri Gruenenfelder oxygen saturation, oximetry 96 % Jeny Gruenenfelder respiratory rate E&M 14 /min Jeny G priteshenenfelder pulse rate 87 /min Jeny Gruenenfe [facility] weight E&M 171 [lb_av] Jeny Gruenenfe er height E&M 70 [in_i] Jeny Gruenenfe er Body Mass Index (Ratio) 25.54 kg/m2 Taew on Kevin blood pressure, cuff size large Ke rri Gruenenfelder blood pressure, diastolic 82 mm[Hg] Ke rri Gruenenfelder blood pressure, systolic 128 mm[Hg] Ker ri Gruenenfelder oxygen saturation, oximetry 97 % Jeny Gruenenfelder respiratory rate E&M 16 /min Jeny G ruenenfelder pulse rate 83 /min Jeny Gruenenfe lder weight E&M 178 [lb_av] Jeny Gruenenfe lder height E&M 70 [in_i] Jeny Gruenenfe lder Body Mass Index (Ratio) 24.53 kg/m2 Cynthia Salinas temperature site temporal Tonsha Higgins temperature E&M 97.8 [degF] [facility] pulse rate 92 /min [facility] respiratory rate E&M 16 /min [facility] oxygen saturation, oximetry 97 % [facility] blood pressure, diastolic 78 mm[Hg] To [facility] blood pressure, systolic 138 mm[Hg] Ton [facility] weight E&M 171 [lb_av] [facility] height E&M 70 [in_i] [facility] Body Mass Index (Ratio) 24.68 kg/m2 Matti sheets Yeni blood pressure, diastolic 66 mm[Hg] Da paul Jacinto blood pressure, systolic 122 mm[Hg] Dac ia Jacinto oxygen saturation, oximetry 97 % Che Jacinto respiratory rate E&M 16 /min Che V oss pulse rate 79 /min Che Jacinto weight E&M 172 [lb_av] Che Jacinto height E&M 70 [in_i] Che Jacinto Body Mass Index (Ratio) 24.39 kg/m2 Matti sheets Yeni weight E&M 170 [lb_av] Laurie Campbel l blood pressure, cuff size regular Cy neli Espinosa blood pressure, diastolic 60 mm[Hg] Cy neli Espinosa blood pressure, systolic 105 mm[Hg] Chanel pradip Espinosa oxygen saturation, oximetry 98 % Laurie Espinosa respiratory rate E&M 16 /min Laurie Espinosa pulse rate 87 /min Laurie Campbel l height E&M 70 [in_i] Meme Hendrix Body Mass Index (Ratio) 24.53 kg/m2 Matti sheets Yeni blood pressure, cuff size large Ke rri Naseem blood pressure, diastolic 82 mm[Hg] Ke rri Tacamille blood pressure, systolic 130 mm[Hg] Henrry velasco Oswaldoroslynwhiter oxygen saturation, oximetry 97 % Jeny Chacondayroncandecamille respiratory rate E&M 20 /min Jeny Anthony priteshlizcamille pulse rate 71 /min Jeny Alcaraz er weight E&M 171 [lb_av] Jeny Kieran er height E&M 70 [in_i] Jeny Kieran er Body Mass Index (Ratio) 23.39 kg/m2 Manuel Bass MD weight E&M 163 [lb_av] Jeny Alcaraz [facility] blood pressure, cuff size regular Ke rrsampson Chappellcamille blood pressure, diastolic 79 mm[Hg] Ke rri Tacamille blood pressure, systolic 118 mm[Hg] Henrry Chappellcamille oxygen saturation, oximetry 97 % Jeny Chacondayroncandecamille respiratory rate E&M 16 /min Jeny Anthony priteshhugocitlali pulse rate 78 /min Jeny Alcaraz [facility] height E&M 70 [in_i] Jeny Alcaraz er blood pressure, diastolic 69 mm[Hg] Nj shakila Edwards blood pressure, systolic 113 mm[Hg] Gail daniel Edwards pulse rate 80 /min Luz Edwards oxygen saturation, oximetry 97 % Luz Edwards respiratory rate E&M 15 /min Luz Edwards Body Mass Index (Ratio) 22.67 kg/m2 Tanika reyes Edwards weight E&M 158 [lb_av] Luz Edwards blood pressure, diastolic 86 mm[Hg] Kinsey Gould blood pressure, systolic 150 mm[Hg] Tesha Gould pulse rate 76 /min Laura Medellin delaney oxygen saturation, oximetry 93 % Laura Dashenson respiratory rate E&M 18 /min GraceCecily Gould Body Mass Index (Ratio) 22.98 kg/m2 Grace Gould weight E&M 160.2 [lb_av] Laura Hardy delunaon blood pressure, diastolic 77 mm[Hg] José isty Lizz blood pressure, systolic 132 mm[Hg] Anu Cristinaby pulse rate 82 /min Tracy Robins oxygen saturation, oximetry 96 % Tracy Lizz respiratory rate E&M 20 /min Tracy Robins Body Mass Index (Ratio) 23.36 kg/m2 Chan elliott Lizz weight E&M 162.8 [lb_av] Tracy Lizz blood pressure, diastolic 78 mm[Hg] Nj shakila Edwards blood pressure, systolic 150 mm[Hg] Gail daniel Edwards pulse rate 64 /min Luz Edwards oxygen saturation, oximetry 98 % Luz Edwards respiratory rate E&M 15 /min Luz Edwards Body Mass Index (Ratio) 23.24 kg/m2 Tanika reyes Edwards weight E&M 162 [lb_av] Luz Edwards blood pressure, diastolic 100 mm[Hg] Kinsey Sky Gould blood pressure, systolic 157 mm[Hg] Tesha Spaulding Gould pulse rate 94 /min Laura Medellin delaney oxygen saturation, oximetry 98 % Laura Dashenson respiratory rate E&M 16 /min GraceCecily wallace Gould Body Mass Index (Ratio) 23.33 kg/m2 Grace Livingston Luis Fernando weight E&M 162.6 [lb_av] Laura Hardy adelaida height E&M 70 [in_i] Laura Medellin nson ALLERGIES No Known Drug Allergies RESULTS Date Observation Value Provider Reference Range Interpretation Location calcium, serum 9.4 mg/dL [facility] 8.6-10.2 carbon dioxide, venous blood 22 mmol/L [facility] 20-29 chloride, serum 104 mmol/L [facility] 96-106 potassium, serum 4.8 mmol/L [facility] 3.5-5.2 sodium, serum 140 mmol/L [facility] [id number] 7036/07/ 28 urea nitrogen/creatinine ratio, serum 21 [facility] 10-24 eGFR if 107 mL/min/{1.7 3_m2} [facility] >59 eGFR if not 92 mL/min/{1.7 3_m2} [facility] >59 creatinine, serum 0.76 mg/dL [facility] 0.76-1.27 urea nitrogen, blood 16 mg/dL [facility] 8-27 blood glucose, random 79 mg/dL [facility] 65-99 anion gap, serum 14.7 [facility] - albumin/globulin ratio, serum 3.0 g/dL [facility] 1.1 - 2.5 High globulin, serum 2.8 [facility] 2.3 - 3.8 urea nitrogen/creatinine ratio, serum 15.6 [facility] - Estimated Glomerular Filtration Rate (calc) 89.2 (?) [facility] 59.0 - chloride, serum 99.3 mmol/L [facility] 98.0 - 107.0 potassium, serum 4.9 mmol/L [facility] 3.5 - 5.1 sodium, serum 140.0 mmol/L [facility] 136.0 - 145.0 creatinine, serum 0.9 mg/dL [facility] 0.7 - 1.2 carbon dioxide, venous blood 26.0 mmol/L [facility] 23.0 - 31.0 albumin, serum 4.8 g/dL [facility] 3.5 - 5.2 calcium, serum 9.6 mg/dL [facility] - 10.2 aspartate aminotransferase (SGOT), serum 21.0 1/L [facility] 0.0 - 40.0 alkaline phosphatase, serum 94.0 1/L [facility] 40.0 - 130.0 alanine aminotransferase (SGPT), serum 19.0 1/L [facility] 0.0 - 41.0 protein, total, serum 7.6 g/dL [facility] 6.6 - 8.7 bilirubin, serum, total 0.5 [facility] - 1.2 urea nitrogen, blood 14.0 mg/dL [facility] 8.0 - 23.0 blood glucose, random 81.0 mg/dL [facility] 74.0 - 99.0 red blood cell distribution width, size density 53.4 fL [facility] - immature granulocytes, percentage of total cells, blood 0.2 % [facility] - nucleated red blood cells as percent of blood leukocytes 0.0 % [facility] - red blood cell (erythrocyte) count, per high power field 0.0 10*3/UL [facility] - eosinophils as percent of blood leukocytes 7.2 % [facility] - neutrophils as percent of blood leukocytes 48.2 % [facility] - Absolute Neutrophils 2.1 CELLS/UL [facility] 1.5 - 7.8 basophils as percent of blood leukocytes 0.9 % [facility] - Absolute Basophils 0.0 CELLS/UL [facility] 0.0 - 0.2 monocytes as percent of blood leukocytes 9.5 % [facility] - Absolute Monocytes 0.4 CELLS/UL [facility] 0.2 - 1.0 lymphocytes as percent of blood leukocytes 34.0 % [facility] - Absolute Lymphocytes 1.5 CELLS/UL [facility] 0.9 - 3.9 mean platelet volume 11.1 (?) [facility] - platelet count 183.0 THOUSAND/UL [facility] 100.0 - 400.0 mean corpuscular hemoglobin concentration, RBC 32.7 G/DL [facility] 31.0 - 38.0 mean corpuscular hemoglobin, RBC 33.4 pg [facility] 25.0 - 35.0 mean corpuscular volume, RBC 102.1 fL [facility] 75.0 - 100.0 High hematocrit, blood 47.7 % [facility] 35.0 - 55.0 hemoglobin, blood 15.6 g/dL [facility] 11.5 - 16.5 erythrocyte count, whole blood 4.7 MILLION/UL [facility] 3.5 - 5.5 trichomonas vaginalis, urine None seen [facility] urine crystals, microscopic None seen [facility] casts, urine, microscopic None seen [facility] mucus on urinalysis None seen [facility] Not Estab. bacteria, urine microscopy Few [facility] None seen / Few epithelial cells, urine 1 - 10 / lpf [facility] 0 - 10 /lpf (non renal) RBC urine by microscopy 0 - 3 /hpf [facility] 0 - 3 /hpf WBC urine on microscopy > 30 /hpf [facility] 0 - 5 /hpf Nitrite Urine Negative [facility] Negative urobilinogen, urine 0.2 E.U./dL mg/dl [facility] 0.2 - 1.0 specific gravity, urine <=1.005 [facility] 1.001 - 1.035 KETONES, URINE Negative [facility] Negative bilirubin, urine Negative [facility] Negative Glucose Urine Negative [facility] Negative clarity, urine, point Clear [facility] Yellow urine color Yellow [facility] yellow to casey activated partial thromboplastin time 26.8 SECONDS [facility] 23.0 - 33.0 prothrombin time (patient) 10.6 s [facility] 9.0 - 11.5 international normalized ratio (INR) 1.0 [facility] 0.9 - 1.1 hemoglobin A1C, blood, as % of total hemoglobin 5.2 % [facility] 4.0 - 6.0 anion gap, serum 16.6 [facility] - albumin/globulin ratio, serum 2.8 g/dL [facility] 1.1 - 2.5 High globulin, serum 3.3 [facility] 2.3 - 3.8 urea nitrogen/creatinine ratio, serum 21.3 [facility] - Estimated Glomerular Filtration Rate (calc) 102.2 (?) [facility] 59.0 - chloride, serum 98.4 mmol/L [facility] 98.0 - 107.0 potassium, serum 4.1 mmol/L [facility] 3.5 - 5.1 sodium, serum 139.0 mmol/L [facility] 136.0 - 145.0 creatinine, serum 0.8 mg/dL [facility] 0.7 - 1.2 carbon dioxide, venous blood 24.0 mmol/L [facility] 23.0 - 31.0 albumin, serum 4.8 g/dL [facility] 3.5 - 5.2 calcium, serum 9.6 mg/dL [facility] 8.6 - 10.2 aspartate aminotransferase (SGOT), serum 31.0 1/L [facility] 0.0 - 40.0 alkaline phosphatase, serum 95.0 1/L [facility] 40.0 - 130.0 alanine aminotransferase (SGPT), serum 32.0 1/L [facility] 0.0 - 41.0 protein, total, serum 8.1 g/dL [facility] 6.6 - 8.7 urea nitrogen, blood 17.0 mg/dL [facility] 8.0 - 23.0 blood glucose, random 277.0 mg/dL [facility] 74.0 - 99.0 High bilirubin, serum, total 0.4 mg/dL [facility] 0.0 - 1.2 vitamin b12, serum 1277.0 pg/mL [facility] 211.0 - 946.0 High pro brain natriuretic peptide 574.8 pg/mL [facility] 0.0 - 125.0 High very low density lipoproteins 27.4 mg/dL [facility] 5.0 - 40.0 LDL/HDL (low-density lipoprotein/high-den sity lipoprotein) ratio 1.6 RATIO [facility] - lipoprotein, beta, serum, point, quantitative, calculated 100.6 (?) [facility] - HDL cholesterol, serum 61.0 mg/dL [facility] 35.0 - 55.0 High cholesterol, serum 189.0 mg/dL [facility] 0.0 - 200.0 triglyceride, serum, fasting 137.0 mg/dL [facility] 0.0 - 150.0 HISTORY OF MEDICATION USE Medication Status Instructions Dates Provider Indications Com ments ezetimibe 10 mg tablet active Take 1 tablet by mouth once a day Abel Nguyễn enalapril maleate 5 mg tablet active TAKE 1 TABLET BY MOUTH TWICE A DAY Jeny Gusman atorvastatin 40 mg tablet active Take 1 tablet by mouth at bedtime Serafin Doty NP nitroglycerin 0.4 mg tablet, sublingual active 1 tablet under tongue as directed as needed 1 tablet under tongue for chest pain. May repeat every 5 minutes if still having chest pain- to max of 3 tablets per episode. Serafin Doty NP clopidogrel 75 mg tablet active Take 1 tablet by mouth once a day Jeny Gusman enalapril maleate 5 mg tablet completed Take 1 tablet by mouth twice a day - Halima Desir carvedilol 6.25 mg tablet active TAKE 1 AND 1/2 TABLETS BY MOUTH TWICE DAILY Jeny Gusman magnesium oxide 400 mg (241.3 mg magnesium) tablet active TAKE 1 TABLET BY MOUTH TWICE A DAY Jeny Gusman clopidogrel 75 mg tablet completed TAKE 1 TABLET BY MOUTH EVERY DAY - Jeny Naseem magnesium oxide 400 mg (241.3 mg magnesium) tablet completed 1 tablet by mouth twice a day - Kikoshawn Kevin atorvastatin 40 mg tablet completed Take 1 tablet once a day - Serafin Doty NP gabapentin 300 mg capsule active Take 1 by mouth three times a day Jeny Gusman VENTOLIN HFA 108 (90 BASE) MCG/ACT INHALATION AEROSOL SOLUTION completed Use twice daily and as needed - Jeny Gusman enalapril maleate 5 mg tablet completed tablet by mouth twice a day - Jeny Gusman Coreg 6.25 mg tablet completed 1.5 tablet by mouth twice a day - Kaveh Bass MD Nitrostat 0.4 mg tablet, sublingual completed Place 1 tablet under tongue as needed - Serafin Doty NP PRAVACHOL 20 MG ORAL TABLET completed ONE TAB. DAILY - Luz Edwards TENORETIC 50 50-25 MG ORAL TABLET completed one a day - Luz Edwards MULTIVITAMINS ORAL CAPSULE completed ONE TAB. DAILY - Laurie Espinosa MOTRIN IB TABLET completed as needed - Luz Edwards ASPIRIN 81 MG ORAL TABLET completed ONE TAB. DAILY - Jeny Gusman clopidogrel 75 mg tablet completed Take 1 tablet once a day - Abel Nguyễn LORTAB 7.5-500 MG ORAL TABLET completed - Laura Gould LISINOPRIL TABLET completed one a dayt - Luz Edwards SOCIAL HISTORY Date Observation Value Provider social history reviewed E&M revi ewed - no changes required Serafin Levykrista GONZALEZ social history E&M S moking History: Laura jamil currently smokes every day. Serafin Levykrista GONZALEZ drug use no Serafin Doty TOBACCO FLAVORER alcohol use yes Serafin Levykrista TOBACCO FLAVORER smoking status Current every day smoker V alex Doty TOBACCO FLAVORER social history E&M S moking History: P atcheryl currently smokes every day. P atcheryl has been counseled to quit. Renny Bell social history reviewed E&M revi ewed - no changes required Renny Bell smoking/tobacco cess ation, patient education and counseling yes Марина Gamal smoking, year quit 2014 Маринаmaninder Dove ia number of years as a smoker 50 a Марина Gamal smoking history, tot al pack/day 0.5 Марина Gamal cigarette use yes Марина Gamal smoking status Current every day smoker A ade Gamal social history E&M S moking History: P atcheryl currently smokes every day. P atcheryl has been counseled to quit. Tim Brown social history reviewed E&M revi ewed - no changes required Tim Brown smoking/tobacco cess ation, patient education and counseling yes Jeny Gusman smoking, year quit 2014 Jeny hernandez number of years as a smoker 52 a Jeny Gusman smoking history, tot al pack/day 0.5 Jeny Gusman cigarette use yes Jeny obrien smoking status Current every day smoker Durga Gusman social history E&M S moking History: Laura jamil currently smokes every day. P omero has been counseled to quit. Tim Brown social history reviewed E&M revi ewed - no changes required Tim Brown smoking/tobacco cess ation, patient education and counseling yes Jeny Gusman smoking, year quit 2014 Jeny stacymark number of years as a smoker 50 a Jeny Gusman smoking history, tot al pack/day 0.5 Jeny Gusman cigarette use yes Jeny obrien smoking status Current every day smoker Durga Gusman social history reviewed E&M revi ewed - no changes required Abhi Salinas smoking/tobacco cess ation, patient education and counseling yes Tonsha Higgins smoking, year quit 2014 Tonsha Mo ss number of years as a smoker 50 a Tonsha Higgins smoking history, tot al pack/day 0.5 Tonsha Higgins cigarette use yes Tonsha Higgins smoking status Current every day smoker T onsha Higgins social history reviewed E&M revi ewed - no changes required Jim Jaime social history E&M S moking History: Laura jamil currently smokes every day. P omero has been counseled to quit. Jim Jaime smoking/tobacco cess ation, patient education and counseling yes Che Jacinto smoking, year quit 2014 Che Boaz s number of years as a smoker 50 a Che Jacinto smoking history, tot al pack/day 0.5 Che Jacinto cigarette use yes Che Jacinto smoking status Current every day smoker D acia Jacinto social history reviewed E&M revi ewed - no changes required Jim Jaime social history E&M S moking History: P atient currently smokes every day. P atient has been counseled to quit. Jim Yeni smoking/tobacco cess ation, patient education and counseling yes Meme Hendrix smoking, year quit 2014 Meme henrandez number of years as a smoker 52 a Meme Hendrix smoking history, tot al pack/day 0.5 Meme Hendrix cigarette use yes Meme Hendrix smoking status Current every day smoker Durga Hendrix social history reviewed E&M revi ewed - no changes required Jim Yeni social history E&M S moking History: P atient currently smokes every day. P atient has been counseled to quit. Jim Jaime smoking/tobacco cess ation, patient education and counseling yes Jeny De La Rosasnowcitlali smoking, year quit 2014 Jen[facility]acerodrigoformerly [facility] as a [facility] 50 a Jeny Gusman smoking history, tot al pack/day 0.5 Jeny Gusman cigarette use yes Jeny obrien smoking status Current every day smoker Durga De La Rosasnowguillermowhitmark social history reviewed E&M revi ewed - no changes required Casie Lyman smoking/tobacco cess ation, patient education and counseling yes Jeny Gusman smoking, year quit 2014 Jeny hernandez number of years as a smoker 52 a Jeny Gusman smoking history, tot al pack/day 0.5 Jeny Gusman cigarette use yes Jeny obrien smoking status Current every day smoker K soheila Chappellwhitmark social history reviewed E&M revi ewed - no changes required Kaveh Bass MD smoking/tobacco cess ation, patient education and counseling yes Luz Edwards smoking, year quit 2014 Luz Arredondo number of years as a smoker 52 a Luz Edwards smoking history, tot al pack/day 0.5 Luz Edwards cigarette use yes Luz Edwards smoking status Current every day smoker Jacquie Edwards social history reviewed E&M revi ewed - no changes required Kaveh Bass MD number of years as a smoker 50 a Laura Gould smoking/tobacco cess ation, patient education and counseling yes Laura Gould smoking history, tot al pack/day 0.5 Laura Gould smoking, year quit 2014 Laura Gould cigarette use yes Laura Dash adelaida smoking status Current every day smoker Jacquie Gould social history reviewed E&M revi ewed - no changes required Kaveh Bass MD smoking/tobacco cess ation, patient education and counseling yes Tracy Zamudio smoking, year quit 2014 Tracy olson cigarette use yes Tracy Zamudio smoking status Current every day smoker Durga gramajo Lizz social history E&M Smoking Histo ry: P atient currently smokes every day. P atient has been counseled to quit. Kaveh Bass MD smoking/tobacco cess ation, patient education and counseling yes Kaveh Bass MD number of grandchildren Kaveh Bass MD cigarette use yes Kaveh giles MD smoking status Current every day smoker Beni Bass MD social history reviewed E&M revi ewed - no changes required Kaveh Bass MD social history reviewed E&M revi ewed - no changes required Jignesh Sanchez MD quit smoking, stage quit Jignesh white MD smoking, year quit 2014 Laura Gould cigarette use yes Laura delunajose smoking status Former smoker Laura Mcdowell FUNCTIONAL STATUS Date Observation Value Provider HRA, CV Assess/Plan, Angina (inactive) Management Plan continue current therapy Serafin Doty NP HRA, CV Assess/Plan, Angina (inactive) Management Plan continue current therapy Renny Orozcosampson HRA, CV Assess/Plan, Angina (inactive) Management Plan continue current therapy Taewon Kevin HRA, CV Assess/Plan, Angina (inactive) Management Plan continue current therapy Taewon Kevin HRA, CV Assess/Plan, Angina (inactive) Management Plan continue current therapy Abhi Brad HRA, CV Assess/Plan, Angina (inactive) Management Plan continue current therapy Jim Yeni HRA, CV Assess/Plan, Angina (inactive) Management Plan continue current therapy Jim Yeni HRA, CV Assess/Plan, Angina (inactive) Management Plan continue current therapy Jim Yeni HRA, CV Assess/Plan, Angina (inactive) Management Plan continue current therapy Casie Lyman HRA, CV Assess/Plan, Angina (inactive) Management Plan continue current therapy Kaveh Bass MD HRA, CV Assess/Plan, Angina (inactive) Management Plan continue current therapy Kaveh Bass MD HRA, CV Assess/Plan, Angina (inactive) Management Plan continue current therapy Kaveh Bass MD HRA, CV Assess/Plan, Angina (inactive) Management Plan continue current therapy Kaveh Bass MD FAMILY HISTORY Family Member Condition Mother Family History Unkno wn INSURANCE PROVIDERS Payer name Policy type / Coverage type [employer] [employer] party ID ESSENCE O Other [id number] ADVANCE DIRECTIVES Name Date DISCUSSED - NO DECISION MADE TREATMENT PLAN Date Name Performer [id number],C, S moking cessation encouraged. Kaveh Bass MD [id number],W,C arotid study showed 50-69% CLAUS stenosis with ulcerated plaque. o n statin. add zetia. check lipids at next visit n o symptoms of dizziness ,ligthheasdedness O rders: P aleisha 21+ (CPT-62833) L IPID PANEL (7900) Kaveh Bass MD [id number],S, s table n o cp His updated medication list for this problem includes: Enalapril Maleate 5 Mg Tablet (Enalapril maleate) ..... Take 1 tablet by mouth twice a day Nitroglycerin 0.4 Mg Tablet, Sublingual (Nitroglycerin) ..... 1 tablet under tongue as directed as needed 1 tablet under tongue for chest pain. may repeat every 5 minutes if still having chest pain- to max of 3 tablets per episode. Carvedilol 6.25 Mg Tablet (Carvedilol) ..... Take 1 and 1/2 tablets by mouth twice daily Clopidogrel 75 Mg Tablet (Clopidogrel) ..... Take 1 tablet by mouth once a day Kaveh Bass MD [id number],C, S moking cessation encouraged. Abel Nguyễn [id number],S, s table n o cp Abel Delma [id number],C, P atcheryl is scheduled for L knee replacement in the near future. No date set yet. A cceptable risk for surgery. Serafin Doty NP [id number],C, S moking cessation encouraged. Nitaroseline Lalitha GONZALEZ [id number],C, T he following medications were removed from the medication list: Atorvastatin 40 Mg Tablet (Atorvastatin) ..... Take 1 tablet once a day His updated medication list for this problem includes: Atorvastatin 40 Mg Tablet (Atorvastatin) ..... Take 1 tablet by mouth at bedtime Serafin Doty NP [id number],C, N o angina. Continue current medications T he following medications were removed from the medication list: Nitrostat 0.4 Mg Tablet, Sublingual (Nitroglycerin) ..... Place 1 tablet under tongue as needed His updated medication list for this problem includes: Nitroglycerin 0.4 Mg Tablet, Sublingual (Nitroglycerin) ..... 1 tablet under tongue as directed as needed 1 tablet under tongue for chest pain. may repeat every 5 minutes if still having chest pain- to max of 3 tablets per episode. Carvedilol 6.25 Mg Tablet (Carvedilol) ..... Take 1 and 1/2 tablets by mouth twice daily Clopidogrel 75 Mg Tablet (Clopidogrel) ..... Take 1 tablet by mouth once a day Enalapril Maleate 5 Mg Tablet (Enalapril maleate) ..... Take 1 tablet by mouth twice a day Nitaroseline Lalitha GONZALEZ [id number],C, E cho from 07/2021 showed EF 45% The following medications were removed from the medication list: Nitrostat 0.4 Mg Tablet, Sublingual (Nitroglycerin) ..... Place 1 tablet under tongue as needed His updated medication list for this problem includes: Nitroglycerin 0.4 Mg Tablet, Sublingual (Nitroglycerin) ..... 1 tablet under tongue as directed as needed 1 tablet under tongue for chest pain. may repeat every 5 minutes if still having chest pain- to max of 3 tablets per episode. Carvedilol 6.25 Mg Tablet (Carvedilol) ..... Take 1 and 1/2 tablets by mouth twice daily Clopidogrel 75 Mg Tablet (Clopidogrel) ..... Take 1 tablet by mouth once a day Enalapril Maleate 5 Mg Tablet (Enalapril maleate) ..... Take 1 tablet by mouth twice a day Serafin Doty NP [id number],Mehdi I mplanted 02/2016. N o episodes. N ormal function. [facility] [id number],C, E cho 07/2021 CONCLUSIONS: 1 . Abnormal septal motion consistent with pacemaker or ICD implant . Mild global left ventricular systolic hypokinesis. The l eft ventricle is at the upper limits of normal in size. Mild concentric left ventricular hypertrophy. There is E to A wave r eversal consistent with impaired LV relaxation. E/E': 8.8 Left ventricular ejection fraction is measured at 45 %. 2 . Right atrium at upper limits of normal size. Linear artifact in right atrium suggestive of catheter, pacer lead, or ICD lead. 3 . There is non-specific thickening of the mitral valve leaflets. Mild to moderate mitral valve regurgitation. 4 . Normal appearing tricuspid valve leaflets. There is mild tricuspid regurgitation. IVC is normal in size with normal r espiratory response. The RA pressure is estimated at 3.0 mmHg Estimated peak pulmonary artery systolic pressure is 26.0 m mHg. T he following medications were removed from the medication list: Nitrostat 0.4 Mg Tablet, Sublingual (Nitroglycerin) ..... Place 1 tablet under tongue as needed His updated medication list for this problem includes: Nitroglycerin 0.4 Mg Tablet, Sublingual (Nitroglycerin) ..... 1 tablet under tongue as directed as needed 1 tablet under tongue for chest pain. may repeat every 5 minutes if still having chest pain- to max of 3 tablets per episode. Carvedilol 6.25 Mg Tablet (Carvedilol) ..... Take 1 and 1/2 tablets by mouth twice daily Clopidogrel 75 Mg Tablet (Clopidogrel) ..... Take 1 tablet by mouth once a day Enalapril Maleate 5 Mg Tablet (Enalapril maleate) ..... Take 1 tablet by mouth twice a day Serafin Doty NP [id number],C,check carotid doppler as baseline. Renny Bell [id number],C, n o recent chest pain r eviewed cath from 10/2018 with stenting, pt will need to remain on plavix indefintiely Renny Bell [id number],C, B P today: 135/74 P rior BP: 110/60 (07/14/2021) Labs Reviewed: C reat: 0.76 (12/07/2017) C hol: 189.0 (03/18/2015) HDL: 61.0 (03/18/2015) T.0 (03/18/2015) Renny Bell [id number],C, E cho from 07/2021 showed EF 45% Renny Bell [id number],C, I mplanted 02/2016. N o episodes. N ormal function. Renny Orozco [id number],S, O rders: F VC - 40080 (83996) F RC - 69810 (69044) D LCO - 31151 (26357) T obacco cessation counseling, >10minutes (44326) STRONGLY ENCOURAGED TO STOP SMOKING; SMOKING CESSATION TECHNIQUES DISCUSSED. Tim Brown [id number],B, I mplanted 02/2016. N o episodes. N ormal function. Tim Brown [id number],B, B P today: 110/60 P rior BP: 128/82 (07/15/2020) Kikoshawn Brown [id number],B, n o recent chest pain r eviewed cath from 10/2018 with stenting, pt will need to remain on plavix indefintiely Kikoshawn Brown [id number],B, n o recent events, no shocks His updated medication list for this problem includes: Nitrostat 0.4 Mg Tablet, Sublingual (Nitroglycerin) ..... Place 1 tablet under tongue as needed Coreg 6.25 Mg Tablet (Carvedilol) ..... 1.5 tablet by mouth twice a day Enalapril Maleate 5 Mg Tablet (Enalapril maleate) ..... Tablet by mouth twice a day Clopidogrel 75 Mg Tablet (Clopidogrel) ..... Take 1 tablet by mouth every day Kikoshawn Brown [id number],S,C ONCLUSIONS: 1 . Abnormal septal motion consistent with pacemaker or ICD implant . Mild global left ventricular systolic hypokinesis. The l eft ventricle is at the upper limits of normal in size. Mild concentric left ventricular hypertrophy. There is E to A wave r eversal consistent with impaired LV relaxation. E/E': 8.8 Left ventricular ejection fraction is measured at 45 %. 2 . Right atrium at upper limits of normal size. Linear artifact in right atrium suggestive of catheter, pacer lead, or ICD lead. 3 . There is non-specific thickening of the mitral valve leaflets. Mild to moderate mitral valve regurgitation. 4 . Normal appearing tricuspid valve leaflets. There is mild tricuspid regurgitation. IVC is normal in size with normal r espiratory response. The RA pressure is estimated at 3.0 mmHg Estimated peak pulmonary artery systolic pressure is 26.0 m mHg. His updated medication list for this problem includes: Nitrostat 0.4 Mg Tablet, Sublingual (Nitroglycerin) ..... Place 1 tablet under tongue as needed Coreg 6.25 Mg Tablet (Carvedilol) ..... 1.5 tablet by mouth twice a day Enalapril Maleate 5 Mg Tablet (Enalapril maleate) ..... Tablet by mouth twice a day Clopidogrel 75 Mg Tablet (Clopidogrel) ..... Take 1 tablet by mouth every day Tim Brown Electrophysiology: O rders: E KG (CPT-45813) 9 9214 MOD 30-39min (CPT-35868) T obacco cessation counseling, >10minutes (53816) by Dr. Bass in person Kaveh Bass MD Electrophysiology:le ft great toe nonhealling wound f u in 6 months cleared for vascular surgery and ortho H is updated medication list for this problem includes: Clopidogrel 75 Mg Tablet (Clopidogrel) ..... Take 1 tablet by mouth once a day Kaveh Bass MD Electrophysiology Kaveh giles MD Electrophysiology Kaveh giles MD Electrophysiology: H is updated medication list for this problem includes: Enalapril Maleate 5 Mg Tablet (Enalapril maleate) ..... Take 1 tablet by mouth twice a day Nitroglycerin 0.4 Mg Tablet, Sublingual (Nitroglycerin) ..... 1 tablet under tongue as directed as needed 1 tablet under tongue for chest pain. may repeat every 5 minutes if still having chest pain- to max of 3 tablets per episode. Carvedilol 6.25 Mg Tablet (Carvedilol) ..... Take 1 and 1/2 tablets by mouth twice daily Clopidogrel 75 Mg Tablet (Clopidogrel) ..... Take 1 tablet by mouth once a day Kaveh Bass MD Electrophysiology: H is updated medication list for this problem includes: Enalapril Maleate 5 Mg Tablet (Enalapril maleate) ..... Take 1 tablet by mouth twice a day Nitroglycerin 0.4 Mg Tablet, Sublingual (Nitroglycerin) ..... 1 tablet under tongue as directed as needed 1 tablet under tongue for chest pain. may repeat every 5 minutes if still having chest pain- to max of 3 tablets per episode. Carvedilol 6.25 Mg Tablet (Carvedilol) ..... Take 1 and 1/2 tablets by mouth twice daily Clopidogrel 75 Mg Tablet (Clopidogrel) ..... Take 1 tablet by mouth once a day Kaveh Bass MD Telehealth, 3 month f/u with lipid panel: S moking cessation encouraged. Kaveh Bass MD Telehealth, 3 month f/u with lipid panel:Carotid study showed 50-69% CLAUS stenosis with ulcerated plaque. o n statin. add zetia. check lipids at next visit n o symptoms of dizziness ,ligthheasdedness O rders: P aleisha 21+ (CPT-30999) L IPID PANEL (4160) Kaveh Bass MD Telehealth, 3 month f/u with lipid panel: s table n o cp His updated medication list for this problem includes: Enalapril Maleate 5 Mg Tablet (Enalapril maleate) ..... Take 1 tablet by mouth twice a day Nitroglycerin 0.4 Mg Tablet, Sublingual (Nitroglycerin) ..... 1 tablet under tongue as directed as needed 1 tablet under tongue for chest pain. may repeat every 5 minutes if still having chest pain- to max of 3 tablets per episode. Carvedilol 6.25 Mg Tablet (Carvedilol) ..... Take 1 and 1/2 tablets by mouth twice daily Clopidogrel 75 Mg Tablet (Clopidogrel) ..... Take 1 tablet by mouth once a day Kaveh Bass MD Telehealth, 3 month f/u with lipid panel: S moking cessation encouraged. Abel Nguyễn Telehealth, 3 month f/u with lipid panel: s table n o cp Abel Delma Electrophysiology: Laura jamil is scheduled for L knee replacement in the near future. No date set yet. A cceptable risk for surgery. Serafin Dotymita GONZALEZ Electrophysiology: S moking cessation encouraged. Serafin Levykrista GONZALEZ Electrophysiology: T he following medications were removed from the medication list: Atorvastatin 40 Mg Tablet (Atorvastatin) ..... Take 1 tablet once a day His updated medication list for this problem includes: Atorvastatin 40 Mg Tablet (Atorvastatin) ..... Take 1 tablet by mouth at bedtime Serafin Levykrista GONZALEZ Electrophysiology: N o angina. Continue current medications T he following medications were removed from the medication list: Nitrostat 0.4 Mg Tablet, Sublingual (Nitroglycerin) ..... Place 1 tablet under tongue as needed His updated medication list for this problem includes: Nitroglycerin 0.4 Mg Tablet, Sublingual (Nitroglycerin) ..... 1 tablet under tongue as directed as needed 1 tablet under tongue for chest pain. may repeat every 5 minutes if still having chest pain- to max of 3 tablets per episode. Carvedilol 6.25 Mg Tablet (Carvedilol) ..... Take 1 and 1/2 tablets by mouth twice daily Clopidogrel 75 Mg Tablet (Clopidogrel) ..... Take 1 tablet by mouth once a day Enalapril Maleate 5 Mg Tablet (Enalapril maleate) ..... Take 1 tablet by mouth twice a day Serafin Dotymita GONZALEZ Electrophysiology: E cho from 07/2021 showed EF 45% The following medications were removed from the medication list: Nitrostat 0.4 Mg Tablet, Sublingual (Nitroglycerin) ..... Place 1 tablet under tongue as needed His updated medication list for this problem includes: Nitroglycerin 0.4 Mg Tablet, Sublingual (Nitroglycerin) ..... 1 tablet under tongue as directed as needed 1 tablet under tongue for chest pain. may repeat every 5 minutes if still having chest pain- to max of 3 tablets per episode. Carvedilol 6.25 Mg Tablet (Carvedilol) ..... Take 1 and 1/2 tablets by mouth twice daily Clopidogrel 75 Mg Tablet (Clopidogrel) ..... Take 1 tablet by mouth once a day Enalapril Maleate 5 Mg Tablet (Enalapril maleate) ..... Take 1 tablet by mouth twice a day Nitaroseline Lalitha GONZALEZ Electrophysiology: I mplanted 02/2016. N o episodes. N ormal function. Nitaroseline Lalitha GONZALEZ Electrophysiology: E cho 07/2021 CONCLUSIONS: 1 . Abnormal septal motion consistent with pacemaker or ICD implant . Mild global left ventricular systolic hypokinesis. The l eft ventricle is at the upper limits of normal in size. Mild concentric left ventricular hypertrophy. There is E to A wave r eversal consistent with impaired LV relaxation. E/E': 8.8 Left ventricular ejection fraction is measured at 45 %. 2 . Right atrium at upper limits of normal size. Linear artifact in right atrium suggestive of catheter, pacer lead, or ICD lead. 3 . There is non-specific thickening of the mitral valve leaflets. Mild to moderate mitral valve regurgitation. 4 . Normal appearing tricuspid valve leaflets. There is mild tricuspid regurgitation. IVC is normal in size with normal r espiratory response. The RA pressure is estimated at 3.0 mmHg Estimated peak pulmonary artery systolic pressure is 26.0 m mHg. T he following medications were removed from the medication list: Nitrostat 0.4 Mg Tablet, Sublingual (Nitroglycerin) ..... Place 1 tablet under tongue as needed His updated medication list for this problem includes: Nitroglycerin 0.4 Mg Tablet, Sublingual (Nitroglycerin) ..... 1 tablet under tongue as directed as needed 1 tablet under tongue for chest pain. may repeat every 5 minutes if still having chest pain- to max of 3 tablets per episode. Carvedilol 6.25 Mg Tablet (Carvedilol) ..... Take 1 and 1/2 tablets by mouth twice daily Clopidogrel 75 Mg Tablet (Clopidogrel) ..... Take 1 tablet by mouth once a day Enalapril Maleate 5 Mg Tablet (Enalapril maleate) ..... Take 1 tablet by mouth twice a day Serafin Dotymita GONZALEZ Electrophysiology:check carotid doppler as baseline. Renny Bell Electrophysiology: n o recent chest pain r eviewed cath from 10/2018 with stenting, pt will need to remain on plavix indefintiely Renny Orozco Electrophysiology: B P today: 135/74 P rior BP: 110/60 (07/14/2021) Labs Reviewed: C reat: 0.76 (12/07/2017) C hol: 189.0 (03/18/2015) HDL: 61.0 (03/18/2015) T.0 (03/18/2015) [facility]: E cho from 07/2021 showed EF 45% [facility]: I mplanted 02/2016. N o episodes. N ormal function. Renny Orozco Electrophysiology: O rders: F VC - 27295 (66482) F RC - 04667 (16090) D LCO - 01657 (78941) T obacco cessation counseling, >10minutes (40427) STRONGLY ENCOURAGED TO STOP SMOKING; SMOKING CESSATION TECHNIQUES DISCUSSED. Tim Brown Electrophysiology: I mplanted 02/2016. N o episodes. N ormal function. Tim Brown Electrophysiology: B P today: 110/60 P rior BP: 128/82 (07/15/2020) Tim Brown Electrophysiology: n o recent chest pain r eviewed cath from 10/2018 with stenting, pt will need to remain on plavix indefintiely Tim Brown Electrophysiology: n o recent events, no shocks His updated medication list for this problem includes: Nitrostat 0.4 Mg Tablet, Sublingual (Nitroglycerin) ..... Place 1 tablet under tongue as needed Coreg 6.25 Mg Tablet (Carvedilol) ..... 1.5 tablet by mouth twice a day Enalapril Maleate 5 Mg Tablet (Enalapril maleate) ..... Tablet by mouth twice a day Clopidogrel 75 Mg Tablet (Clopidogrel) ..... Take 1 tablet by mouth every day Tim Brown Electrophysiology:CO NCLUSIONS: 1 . Abnormal septal motion consistent with pacemaker or ICD implant . Mild global left ventricular systolic hypokinesis. The l eft ventricle is at the upper limits of normal in size. Mild concentric left ventricular hypertrophy. There is E to A wave r eversal consistent with impaired LV relaxation. E/E': 8.8 Left ventricular ejection fraction is measured at 45 %. 2 . Right atrium at upper limits of normal size. Linear artifact in right atrium suggestive of catheter, pacer lead, or ICD lead. 3 . There is non-specific thickening of the mitral valve leaflets. Mild to moderate mitral valve regurgitation. 4 . Normal appearing tricuspid valve leaflets. There is mild tricuspid regurgitation. IVC is normal in size with normal r espiratory response. The RA pressure is estimated at 3.0 mmHg Estimated peak pulmonary artery systolic pressure is 26.0 m mHg. His updated medication list for this problem includes: Nitrostat 0.4 Mg Tablet, Sublingual (Nitroglycerin) ..... Place 1 tablet under tongue as needed Coreg 6.25 Mg Tablet (Carvedilol) ..... 1.5 tablet by mouth twice a day Enalapril Maleate 5 Mg Tablet (Enalapril maleate) ..... Tablet by mouth twice a day Clopidogrel 75 Mg Tablet (Clopidogrel) ..... Take 1 tablet by mouth every day Kikoshawn Brown Electrophysiology Fo llow up 13: S MAYELIN ENCOURAGED TO STOP SMOKING; SMOKING CESSATION TECHNIQUES DISCUSSED. Orders: T obacco cessation counseling, 3-10minutes (25937) Kikoshawn Brown Electrophysiology Fo llow up 13: r evewed cath from 10/2018 with stenting, pt will need to remain on plavix indefintiely The following medications were removed from the medication list: Aspirin 81 Mg Oral Tablet (Aspirin) ..... One tab. daily His updated medication list for this problem includes: Enalapril Maleate 5 Mg Oral Tablet (Enalapril maleate) ..... Twice daily Coreg 6.25 Mg Oral Tablet (Carvedilol) ..... 1 and 1/2 tablet twice daily Nitrostat 0.4 Mg Sublingual Tablet Sublingual (Nitroglycerin) ..... Put one tablet under tongue as needed Clopidogrel 75mg (Clopidogrel bisulfate) ..... Take one tablet daily shawn Kevin Electrophysiology Fo llow up 13: B P today: 128/82 P rior BP: 138/78 (08/14/2019) The following medications were removed from the medication list: Aspirin 81 Mg Oral Tablet (Aspirin) ..... One tab. daily His updated medication list for this problem includes: Enalapril Maleate 5 Mg Oral Tablet (Enalapril maleate) ..... Twice daily Coreg 6.25 Mg Oral Tablet (Carvedilol) ..... 1 and 1/2 tablet [facility] Fo llow up 13: l ast EF 50% Orders: C omplete Echo (CPT-30666) The following medications were removed from the medication list: Aspirin 81 Mg Oral Tablet (Aspirin) ..... One tab. daily His updated medication list for this problem includes: Enalapril Maleate 5 Mg Oral Tablet (Enalapril maleate) ..... Twice daily Coreg 6.25 Mg Oral Tablet (Carvedilol) ..... 1 and 1/2 tablet twice daily Nitrostat 0.4 Mg Sublingual Tablet Sublingual (Nitroglycerin) ..... Put one tablet under tongue as needed Clopidogrel 75mg (Clopidogrel bisulfate) ..... Take one tablet daily [facility] Fo llow up 13: O rders: C omplete Echo (CPT-78649) 08/2019 Echo CONCLUSIONS: 1 . Abnormal septal motion consistent with pacemaker or ICD implant . Normal left ventricular systolic function. Normal left v entricular size. There is borderline left ventricular hypertrophy. There is E to A wave reversal consistent with impaired LV r elaxation. Left ventricular ejection fraction is measured at 50 %. 2 . Normal right ventricular size. Normal right ventricular systolic function. Linear artifact seen in the right ventricle is s uggestive of a catheter, pacer lead, or ICD lead. 3 . There is non-specific thickening of the mitral valve leaflets. Mild to moderate mitral valve regurgitation. 4 . Normal appearing tricuspid valve leaflets. There is mild tricuspid regurgitation. The IVC is not well visualized. The RA p ressure is estimated at 3.0 mmHg. Estimated peak pulmonary artery systolic pressure is 23.0 mmHg. The following medications were removed from the medication list: Aspirin 81 Mg Oral Tablet (Aspirin) ..... One tab. daily His updated medication list for this problem includes: Enalapril Maleate 5 Mg Oral Tablet (Enalapril maleate) ..... Twice daily Coreg 6.25 Mg Oral Tablet (Carvedilol) ..... 1 and 1/2 tablet twice daily Nitrostat 0.4 Mg Sublingual Tablet Sublingual (Nitroglycerin) ..... Put one tablet under tongue as needed Clopidogrel 75mg (Clopidogrel bisulfate) ..... Take one tablet daily Tim Brown Electrophysiology Fo llow up 13: V T event 8s long on 06/20/2020 and his coreg was increased to 6.25mg 1.5 tabs daily i mproved with higher dose of coreg. may need to increase in future h as dc ICD The following medications were removed from the medication list: Aspirin 81 Mg Oral Tablet (Aspirin) ..... One tab. daily His updated medication list for this problem includes: Enalapril Maleate 5 Mg Oral Tablet (Enalapril maleate) ..... Twice daily Coreg 6.25 Mg Oral Tablet (Carvedilol) ..... 1 and 1/2 tablet twice daily Nitrostat 0.4 Mg Sublingual Tablet Sublingual (Nitroglycerin) ..... Put one tablet under tongue as needed Clopidogrel 75mg (Clopidogrel bisulfate) ..... Take one tablet daily Tim Brown Cardiology: H is updated medication list for this problem includes: Atorvastatin Calcium 40 Mg Oral Tablet (Atorvastatin calcium) ..... One tablet once a day - start now. may substitute to preferred generic statin Abhi Salinas Cardiology:fabiana sibley from 10/2018 with stenting, pt will need to remain on plavix indefintiely Abhi Salinas Cardiology: H is updated medication list for this problem includes: Enalapril Maleate 5 Mg Oral Tablet (Enalapril maleate) ..... Twice daily Coreg 6.25 Mg Oral Tablet (Carvedilol) ..... One tab. twice daily Aspirin 81 Mg Oral Tablet (Aspirin) ..... One tab. daily BP today: 138/78 P rior BP: 122/66 (08/15/2018) Labs Reviewed: C reat: 0.76 (12/07/2017) C hol: 189.0 (03/18/2015) HDL: 61.0 (03/18/2015) T.0 (03/18/2015) [facility]: H is updated medication list for this problem includes: Enalapril Maleate 5 Mg Oral Tablet (Enalapril maleate) ..... Twice daily Coreg 6.25 Mg Oral Tablet (Carvedilol) ..... One tab. twice daily Nitrostat 0.4 Mg Sublingual Tablet Sublingual (Nitroglycerin) ..... Put one tablet under tongue as needed Aspirin 81 Mg Oral Tablet (Aspirin) ..... One tab. daily Clopidogrel 75mg (Clopidogrel bisulfate) ..... Take one tablet daily [facility] Cardiology:irawedominick sibley from 10/2018 with stenting, pt will need to remain on plavix indefintiely [facility] Electrophysiology fo llow up: B P today: 122/66 P rior BP: 105/60 (02/14/2018) Labs Reviewed: C reat: 0.76 (12/07/2017) C hol: 189.0 (03/18/2015) HDL: 61.0 (03/18/2015) T.0 (03/18/2015) His updated medication list for this problem includes: Enalapril Maleate 5 Mg Oral Tablet (Enalapril maleate) ..... Twice daily Coreg 6.25 Mg Oral Tablet (Carvedilol) ..... One tab. twice daily Aspirin 81 Mg Oral Tablet (Aspirin) ..... One tab. daily Jim Jaime Electrophysiology fo llow up: M ild-mod plaque with <50% stenosis of the ICAs bilaterally. Check carotid US. Orders: C arotid Duplex Bilateral (CPT-34205) 9 9214 MOD Complex (CPT-54754) S chedule Followup (*) Jim Jaime Electrophysiology fo llow up: E F 55% by echo 12/06/17. s /p DC ICD. His updated medication list for this problem includes: Enalapril Maleate 5 Mg Oral Tablet (Enalapril maleate) ..... Twice daily Coreg 6.25 Mg Oral Tablet (Carvedilol) ..... One tab. twice daily Nitrostat 0.4 Mg Sublingual Tablet Sublingual (Nitroglycerin) ..... Put one tablet under tongue as needed Aspirin 81 Mg Oral Tablet (Aspirin) ..... One tab. daily Plavix 75 Mg Oral Tablet (Clopidogrel bisulfate) ..... Take one tablet daily Jim Jaime Electrophysiology fo llow up: E F 55% by echo 12/06/17. s /p DC ICD. His updated medication list for this problem includes: Enalapril Maleate 5 Mg Oral Tablet (Enalapril maleate) ..... Twice daily Coreg 6.25 Mg Oral Tablet (Carvedilol) ..... One tab. twice daily Nitrostat 0.4 Mg Sublingual Tablet Sublingual (Nitroglycerin) ..... Put one tablet under tongue as needed Aspirin 81 Mg Oral Tablet (Aspirin) ..... One tab. daily Plavix 75 Mg Oral Tablet (Clopidogrel bisulfate) ..... Take one tablet daily [facility] fo llow up: I mplanted 02/2016. N o episodes. N ormal function. [facility] Electrophysiology:BP today: 105/60 P rior BP: 130/82 (12/06/2017) Labs Reviewed: C reat: 0.76 (12/07/2017) C hol: 189.0 (03/18/2015) HDL: 61.0 (03/18/2015) T.0 (03/18/2015) H is updated medication list for this problem includes: Enalapril Maleate 5 Mg Oral Tablet (Enalapril maleate) ..... Twice daily Coreg 6.25 Mg Oral Tablet (Carvedilol) ..... One tab. twice daily Aspirin 81 Mg Oral Tablet (Aspirin) ..... One tab. daily [facility]:Or ders: 9213 MOD Complex (CPT-57807) S chedule Followup (*) His updated medication list for this problem includes: Enalapril Maleate 5 Mg Oral Tablet (Enalapril maleate) ..... Twice daily Coreg 6.25 Mg Oral Tablet (Carvedilol) ..... One tab. twice daily Nitrostat 0.4 Mg Sublingual Tablet Sublingual (Nitroglycerin) ..... Put one tablet under tongue as needed Aspirin 81 Mg Oral Tablet (Aspirin) ..... One tab. daily Plavix 75 Mg Oral Tablet (Clopidogrel bisulfate) ..... Take one tablet daily [facility]:Si nce last seen, patient had CT lumbar without contrast 12/12/17 which showed mod-marked disc degeneration. P atient cleared for spinal surgery from cardiology standpoint. H old Plavix 5 days prior to procedure. C ontinue Aspirin and all other medications. W ill followup in 6 months. Orders: 9213 MOD Complex (CPT-27365) S chedule Followup (*) [facility] Fo llow up : H is updated medication list for this problem includes: Enalapril Maleate 5 Mg Oral Tablet (Enalapril maleate) ..... Twice daily Coreg 6.25 Mg Oral Tablet (Carvedilol) ..... One tab. twice daily Nitrostat 0.4 Mg Sublingual Tablet Sublingual (Nitroglycerin) ..... Put one tablet under tongue as needed Aspirin 81 Mg Oral Tablet (Aspirin) ..... One tab. daily Plavix 75 Mg Oral Tablet (Clopidogrel bisulfate) ..... Take one tablet daily Orders: 9213 MOD Complex (CPT-94511) S chedule Followup (*) F VC - 90168 (28792) F RC - 24291 (54573) D LCO - 67874 (12949) H EPATITIS C ANTIBODY (8472) [facility] Fo llow up : B P today: 130/82 P rior BP: 118/79 (09/28/2016) Labs Reviewed: C reat: 0.9 (02/04/2016) C hol: 189.0 (03/18/2015) HDL: 61.0 (03/18/2015) T.0 (03/18/2015) His updated medication list for this problem includes: Enalapril Maleate 5 Mg Oral Tablet (Enalapril maleate) ..... Twice daily Coreg 6.25 Mg Oral Tablet (Carvedilol) ..... One tab. twice daily Aspirin 81 Mg Oral Tablet (Aspirin) ..... One tab. daily [facility] Fo llow up : H is updated medication list for this problem includes: Enalapril Maleate 5 Mg Oral Tablet (Enalapril maleate) ..... Twice daily Coreg 6.25 Mg Oral Tablet (Carvedilol) ..... One tab. twice daily Nitrostat 0.4 Mg Sublingual Tablet Sublingual (Nitroglycerin) ..... Put one tablet under tongue as needed Aspirin 81 Mg Oral Tablet (Aspirin) ..... One tab. daily Plavix 75 Mg Oral Tablet (Clopidogrel bisulfate) ..... Take one tablet daily Orders: E KG (CPT-04519) 9 14 MOD Complex (CPT-20029) S chedule Followup (*) F VC - 54864 (34051) F RC - 58748 (87807) D LCO - 11525 (93877) H EPATITIS C ANTIBODY (8472) [facility] Fo llow up : O rders: C T Lumbar Spine with contrast (CPT-89469) B ASIC METABOLIC PANEL W/EGFR (77834) 9 14 MOD Complex (CPT-49194) 9 9214 MOD Complex (CPT-28465) Schedule Followup (*) F VC - 50734 (61301) F RC - 20091 (54335) D LCO - 30740 (13715) H EPATITIS C ANTIBODY (8472) [facility]aiem Electrophysiology Fo llow up : H is updated medication list for this problem includes: Enalapril Maleate 5 Mg Oral Tablet (Enalapril maleate) ..... Twice daily Coreg 6.25 Mg Oral Tablet (Carvedilol) ..... One tab. twice daily Nitrostat 0.4 Mg Sublingual Tablet Sublingual (Nitroglycerin) ..... Put one tablet under tongue as needed Aspirin 81 Mg Oral Tablet (Aspirin) ..... One tab. daily Plavix 75 Mg Oral Tablet (Clopidogrel bisulfate) ..... Take one tablet daily Orders: 9 9214 MOD Complex (CPT-56254) [facility] Fo llow up : B P today: 130/82 P rior BP: 118/79 (09/28/2016) Labs Reviewed: C reat: 0.9 (02/04/2016) C hol: 189.0 (03/18/2015) HDL: 61.0 (03/18/2015) T.0 (03/18/2015) His updated medication list for this problem includes: Enalapril Maleate 5 Mg Oral Tablet (Enalapril maleate) ..... Twice daily Coreg 6.25 Mg Oral Tablet (Carvedilol) ..... One tab. twice daily Aspirin 81 Mg Oral Tablet (Aspirin) ..... One tab. daily [facility] Fo llow up : H is updated medication list for this problem includes: Enalapril Maleate 5 Mg Oral Tablet (Enalapril maleate) ..... Twice daily Coreg 6.25 Mg Oral Tablet (Carvedilol) ..... One tab. twice daily Nitrostat 0.4 Mg Sublingual Tablet Sublingual (Nitroglycerin) ..... Put one tablet under tongue as needed Aspirin 81 Mg Oral Tablet (Aspirin) ..... One tab. daily Plavix 75 Mg Oral Tablet (Clopidogrel bisulfate) ..... Take one tablet daily Orders: E KG (CPT-32827) [facility] Electrophysiology Fo llow up : O rders: C T Lumbar Spine with contrast (CPT-09918) B ASIC METABOLIC PANEL W/EGFR (77065) 9 9214 MOD Complex (CPT-07331) 9 9214 MOD Complex (CPT-11521) [facility] Follow u p: O rders: C omplete Echo (CPT-69896) Kaveh Bass MD Cardiology Follow u p: O rders: C arotid Duplex Bilateral (CPT-75091) Kaveh Bass MD Cardiology faxed :BP today: 150/86 P rior BP: 132/77 (02/03/2016) Kaveh Bass MD Cardiology:Benefits of smoking cessation have been reviewed. Daniel Llamas Cardiology:BP today: 132/77 P rior BP: 150/78 (11/25/2015) Daniel Llamas Cardiology:On scottie lly tolerated dose of medications (had hypotension). EF 30% by echo today. Class 3. His updated medication list for this problem includes: Enalapril Maleate 5 Mg Oral Tabs (Enalapril maleate) ..... Twice daily Coreg 6.25 Mg Tabs (Carvedilol) ..... One tab. twice daily Nitrostat 0.4 Mg Sl Subl (Nitroglycerin) ..... Put one tablet under tongue as needed Aspirin 81 Mg Tabs (Aspirin) ..... One tab. daily Plavix 75 Mg Tabs (Clopidogrel bisulfate) ..... One tab. daily Daniel Llamas Cardiology:On scottie lly tolerated dose of medications (had hypotension). EF 30% by echo today. Will schedule AICD implantation for primary prevention of sudden cardiac . Kaveh Bass MD EP faxed 12/01/15:CHO L: 189.0 (03/18/2015) LDL: 100.6 (?) (03/18/2015) HDL: 61.0 (03/18/2015) T.0 (03/18/2015) The following medications were removed from the medication list: Pravachol 20 Mg Tabs (Pravastatin sodium) ..... One tab. daily Kaveh Bass MD EP faxed 12/01/15:BP today: 150/78 P rior BP: 157/100 (03/17/2015) His updated medication list for this problem includes: Enalapril Maleate 5 Mg Oral Tabs (Enalapril maleate) ..... Twice daily Coreg 6.25 Mg Tabs (Carvedilol) ..... One tab. twice daily Aspirin 81 Mg Tabs (Aspirin) ..... One tab. daily Kaveh Bass MD EP faxed 12/01/15:STR ONGLY ENCOURAGED TO STOP SMOKING; SMOKING CESSATION TECHNIQUES DISCUSSED. Kaveh Bass MD EP faxed 12/01/15:Cla ss III. EF of 30% by cath. His updated medication list for this problem includes: Enalapril Maleate 5 Mg Oral Tabs (Enalapril maleate) ..... Twice daily Coreg 6.25 Mg Tabs (Carvedilol) ..... One tab. twice daily Nitrostat 0.4 Mg Sl Subl (Nitroglycerin) ..... Put one tablet under tongue as needed Aspirin 81 Mg Tabs (Aspirin) ..... One tab. daily Plavix 75 Mg Tabs (Clopidogrel bisulfate) ..... One tab. daily Kaveh Bass MD EP faxed 12/01/15:Graham nts were patent on last cath. No PCI/stenting done at that time. Kaveh Bass MD EP faxed 12/01/15:Cat h two weeks ago showed EF of 30%. Pt is wearing a LifeVest right now and will have an echo in ~3 months to check EF. Kaveh Bass MD Cardiology:05/2014, alex rivera had bm stent to [facility], restentosi in 02/2015 and then got promos to [facility], has residual dz 90% in dx Jignesh Sanchez MD Cardiology:will add terortic 157 /100 Jignesh Sanchez MD Cardiology:05/2014, alex rivera had bm stent to [facility], restentosi in 02/2015 and then got promos to [facility], has residual dz 90% in dx Jignesh Sanchez MD Cardiology:45% 02/2015 with catr h Jignesh Sanchez MD Date Name Complete Echo LIPID PANEL Aorta Duplex Ultraso und Carotid Duplex Bilat eral Complete Echo Complete Echo Carotid Duplex Bilat eral DLCO - 66577 FRC - 32734 FVC - 01439 Complete Echo LIPID PANEL COMPREHENSIVE METABO LIC PANEL, W/EGFR CBC (INCLUDES DIFF/P LT) COMPREHENSIVE METABO LIC PANEL, W/EGFR LIPID PANEL Aorta Duplex Ultraso und Complete Echo Carotid Duplex Bilat eral HEPATITIS C ANTIBODY DLCO - 81388 FRC - 54168 FVC - 69779 BASIC METABOLIC PANE L W/EGFR CT Lumbar Spine with contrast Carotid Duplex Bilat eral Aorta Duplex Ultraso und (AAA) Complete Echo Complete Echo URINALYSIS, COMPLETE W/REFLEX TO CULTURE PARTIAL THROMBOPLAST IN TIME, ACTIVATED PROTHROMBIN TIME WIT H INR CBC (INCLUDES DIFF/P LT) COMPREHENSIVE METABO LIC PANEL W/EGFR AICD Implant - CNE AICD Implant - GC Complete Echo Aortic Abdominal Ult rasound COMPREHENSIVE METABO LIC PANEL W/EGFR VITAMIN D, 25-HYDROX Y, LC/MS/MS HEMOGLOBIN A1c VITAMIN B12 PROBNP, N TERMINAL LIPID PANEL Carotid Duplex Bilat eral Complete Echo HISTORY OF PROCEDURES Procedure Date Procedure Name Provider Procedure Notes S tatus Schedule Followup Kaveh giles MD fu in 6 months cleared for vascular surgery and ortho completed EKG Kaveh setrling MD completed Schedule Followup Kaveh giles MD 1 year completed EKG Kaveh sterling MD completed EKG Kaveh sterling MD completed Spirometry Kaveh sterling MD completed FVC / MVV with bronchodilator - 32305 Kaveh Bass MD completed BLOOD COUNT HEMOGLOBIN Kaveh polanco MD completed FRC - 57618 Kaveh sterling MD completed SpO2 w/o 6min walk/titration Kaveh Bass MD completed SVC - 63727 Kaveh sterling MD completed DLCO - 52239 Kaveh sterling MD completed EKG Kaveh sterling MD completed Schedule Followup Kaveh giles MD 1 year completed EKG Kaveh sterling MD completed EKG Miguel Skelton MD completed ICM Interrogation, Remote (Prof) Kaveh Bass MD INTERROGATION EVAL REMOTE </30 D CV MNTR SYS completed ICM Interrogation, Remote (Tech) Kaveh Bass MD INTERROGATION EVAL REMOTE </30 D TECH REVIEW completed ICM Interrogation, Remote (Prof) Kaveh Bass MD INTERROGATION EVAL REMOTE </30 D CV MNTR SYS completed ICM Interrogation, Remote (Tech) Kaveh Bass MD INTERROGATION EVAL REMOTE </30 D TECH REVIEW completed ICM Interrogation, Remote (Prof) Saulius Kalvaitis MD INTERROGATION EVAL REMOTE </30 D CV MNTR SYS completed AICD Interrogation, Remote (Tech) Saulius Markvaitis MD INTERROGATION REMOTE </90 D ROLL EDGE MACHINE OPERATOR REVIEW completed AICD Interrogation, Remote (Prof) Saulius Kalvaitis MD INTERROGATION EVAL REMOTE </90 D 1/2/> LD CVDFB completed ICM Interrogation, Remote (Prof) Saulius Kalvaitis MD INTERROGATION EVAL REMOTE </30 D CV MNTR SYS completed ICM Interrogation, Remote (Tech) Saulius Kalvaitis MD INTERROGATION EVAL REMOTE </30 D TECH REVIEW completed ICM Interrogation, Remote (Prof) Saulius Kalvaitis MD INTERROGATION EVAL REMOTE </30 D CV MNTR SYS completed ICM Interrogation, Remote (Tech) Kaveh Zapataitis MD INTERROGATION EVAL REMOTE </30 D TECH REVIEW completed Schedule Followup Kaveh giles MD in 1 yr completed ICM Interrogation, Remote (Prof) Sarichie Zapataitis INTERROGATION EVAL REMOTE </30 D CV MNTR SYS completed ICM Interrogation, Remote (Tech) Saulius Jodiitis MD INTERROGATION EVAL REMOTE </30 D TECH REVIEW completed ICM Interrogation, Remote (Prof) Sarichie Bass MD INTERROGATION EVAL REMOTE </30 D CV MNTR SYS completed AICD Interrogation, Remote (Tech) Saulius Markvaitis MD INTERROGATION REMOTE </90 D ROLL EDGE MACHINE OPERATOR REVIEW completed AICD Interrogation, Remote (Prof) Sarichie Bass MD INTERROGATION EVAL REMOTE </90 D 1/2/> LD CVDFB completed SpO2 w/o 6min walk/titration Kaveh Bass MD completed FVC / MVV - 45172 Kaveh giles MD completed ICM Interrogation, Remote (Prof) Kaveh Bass MD INTERROGATION EVAL REMOTE </30 D CV MNTR SYS completed ICM Interrogation, Remote (Tech) Saulius Kalvaitis MD INTERROGATION EVAL REMOTE </30 D TECH REVIEW completed ICM Interrogation, Remote (Prof) Saulius Kalvaitis MD INTERROGATION EVAL REMOTE </30 D CV MNTR SYS completed ICM Interrogation, Remote (Tech) Saulius Kalvaitis MD INTERROGATION EVAL REMOTE </30 D TECH REVIEW completed ICM Interrogation, Remote (Prof) Saulius Kalvaitis MD INTERROGATION EVAL REMOTE </30 D CV MNTR SYS completed AICD Interrogation, Remote (Tech) Saulius Kalvaitis MD INTERROGATION REMOTE </90 D ROLL EDGE MACHINE OPERATOR REVIEW completed AICD Interrogation, Remote (Prof) Saulius Kalvaitis MD INTERROGATION EVAL REMOTE </90 D 1/2/ LD CVDFB completed Schedule Followup Kaveh giles MD in 6 mo completed EKG Kaveh sterling MD completed ICM Interrogation, Remote (Prof) Saulius Kalvaitis MD INTERROGATION EVAL REMOTE </30 D CV MNTR SYS completed ICM Interrogation, Remote (Tech) Saulius Kalvaitis MD INTERROGATION EVAL REMOTE </30 D TECH REVIEW completed ICM Interrogation, Remote (Prof) Saulius Kalvaitis MD INTERROGATION EVAL REMOTE </30 D CV MNTR SYS completed ICM Interrogation, Remote (Tech) Saulius Kalvaitis MD INTERROGATION EVAL REMOTE </30 D TECH REVIEW completed Schedule Followup ulius Jaci giles MD in 6 months completed EKG ulius Lorne sterling MD completed ICM Interrogation, Remote (Prof) Saulius Kalvaitis MD INTERROGATION EVAL REMOTE </30 D CV MNTR SYS completed AICD Interrogation, Remote (Tech) Saulius Kalvaitis MD INTERROGATION REMOTE </90 D ROLL EDGE MACHINE OPERATOR REVIEW completed AICD Interrogation, Remote (Prof) Saulius Kalvaitis MD INTERROGATION EVAL REMOTE </90 D 1/2/> LD CVDFB completed ICM Interrogation, Remote (Prof) Saulius Kalvaitis MD INTERROGATION EVAL REMOTE </30 D CV MNTR SYS completed ICM Interrogation, Remote (Tech) Saulius Kalvaitis MD INTERROGATION EVAL REMOTE </30 D TECH REVIEW completed ICM Interrogation, Remote (Prof) Saulius Kalvaitis MD INTERROGATION EVAL REMOTE </30 D CV MNTR SYS completed ICM Interrogation, Remote (Tech) Saulius Kalvaitis MD INTERROGATION EVAL REMOTE </30 D TECH REVIEW completed ICM Interrogation, Remote (Prof) Saulius Kalvaitis MD INTERROGATION EVAL REMOTE </30 D CV MNTR SYS completed ICM Interrogation, Remote (Tech) Saulius Kalvaitis MD INTERROGATION EVAL REMOTE </30 D TECH REVIEW completed ICM Interrogation, Remote (Prof) Saulius Kalvaitis MD INTERROGATION EVAL REMOTE </30 D CV MNTR SYS completed AICD Interrogation, Remote (Tech) Saulius Kalvaitis MD INTERROGATION REMOTE </90 D ROLL EDGE MACHINE OPERATOR REVIEW completed AICD Interrogation, Remote (Prof) Saulius Kalvaitis MD INTERROGATION EVAL REMOTE </90 D 12/> LD CVDFB completed ICM Interrogation, Remote (Prof) Saulius Kalvaitis MD INTERROGATION EVAL REMOTE </30 D CV MNTR SYS completed ICM Interrogation, Remote (Tech) Saulius Kalvaitis MD INTERROGATION EVAL REMOTE </30 D TECH REVIEW completed ICM Interrogation, Remote (Prof) Saulius Kalvaitis MD INTERROGATION EVAL REMOTE </30 D CV MNTR SYS completed ICM Interrogation, Remote (Tech) Saulius Kalvaitis MD INTERROGATION EVAL REMOTE </30 D TECH REVIEW completed ICM Interrogation, Remote (Prof) Saulius Kalvaitis MD INTERROGATION EVAL REMOTE </30 D CV MNTR SYS completed Pacemaker Interrogation, Remote (Tech) Saulius Kalvaitis MD INTERROGATION REMOTE </90 D ROLL EDGE MACHINE OPERATOR REVIEW completed Pacemaker Interrogation, Remote (Prof) Saulius Kalvaitis MD INTERROGATION EVAL REMOTE </90 D 1/2/FOLDER STITCHER OPERATOR LEAD P completed ICM Interrogation, Remote (Prof) Saulius Kalvaitis MD INTERROGATION EVAL REMOTE </30 D CV MNTR SYS completed Pacemaker Interrogation, Remote (Tech) Saulius Kalvaitis MD INTERROGATION REMOTE </90 D ROLL EDGE MACHINE OPERATOR REVIEW completed Pacemaker Interrogation, Remote (Prof) Saulius Kalvaitis MD INTERROGATION EVAL REMOTE </90 D 1/2/FOLDER STITCHER OPERATOR LEAD P completed ICM Interrogation, Remote (Prof) Saulius Kalvaitis MD INTERROGATION EVAL REMOTE </30 D CV MNTR SYS completed AICD Interrogation, Remote (Tech) Saulius Jodiitis MD INTERROGATION REMOTE </90 D ROLL EDGE MACHINE OPERATOR REVIEW completed AICD Interrogation, Remote (Prof) Saulius Markvaitis MD INTERROGATION EVAL REMOTE </90 D 1/2/> LD CVDFB completed ICM Interrogation, Remote (Prof) Saulius Kalvaitis MD INTERROGATION EVAL REMOTE </30 D CV MNTR SYS completed ICM Interrogation, Remote (Tech) Saulius Kalvaitis MD INTERROGATION EVAL REMOTE </30 D TECH REVIEW completed ICM Interrogation, Remote (Prof) Saulius Jodiitis MD INTERROGATION EVAL REMOTE </30 D CV MNTR SYS completed ICM Interrogation, Remote (Tech) Saulius Kalvaitis MD INTERROGATION EVAL REMOTE </30 D TECH REVIEW completed AICD Interrogation, Remote (Tech) Saulius Kalvaitis MD INTERROGATION REMOTE </90 D ROLL EDGE MACHINE OPERATOR REVIEW completed AICD Interrogation, Remote (Prof) Saulius Kalvaitis MD INTERROGATION EVAL REMOTE </90 D 1/2/> LD CVDFB completed Schedule Followup Kaveh giles MD In one year. completed EKG Kaveh sterling MD completed SNOMED-CT: [id number] Current Medications Documented Kaveh Bass MD completed ICM Interrogation, Remote (Prof) Saulius Kalvaitis MD INTERROGATION EVAL REMOTE </30 D CV MNTR SYS completed ICM Interrogation, Remote (Tech) Saulius Zapataitis MD INTERROGATION EVAL REMOTE </30 D TECH REVIEW completed ICM Interrogation, Remote (Prof) Saulius Markvaitis MD INTERROGATION EVAL REMOTE </30 D CV MNTR SYS completed ICM Interrogation, Remote (Tech) Saulius Kalvaitis MD INTERROGATION EVAL REMOTE </30 D TECH REVIEW completed ICM Interrogation, Remote (Prof) Saulius Kalvaitis MD INTERROGATION EVAL REMOTE </30 D CV MNTR SYS completed AICD Interrogation, Remote (Tech) Saulius Markvaitis MD INTERROGATION REMOTE </90 D ROLL EDGE MACHINE OPERATOR REVIEW completed AICD Interrogation, Remote (Prof) Saulius Markvaitis MD INTERROGATION EVAL REMOTE </90 D 1/2/> LD CVDFB completed ICM Interrogation, Remote (Prof) Saulius Kalvaitis MD INTERROGATION EVAL REMOTE </30 D CV MNTR SYS completed ICM Interrogation, Remote (Tech) Saulius Markvaitis MD INTERROGATION EVAL REMOTE </30 D TECH REVIEW completed ICM Interrogation, Remote (Prof) Saulius Jodiitis INTERROGATION EVAL REMOTE </30 D CV MNTR SYS completed ICM Interrogation, Remote (Tech) Saulius Zapataitis INTERROGATION EVAL REMOTE </30 D TECH REVIEW completed SNOMED-CT: [id number] Smoking Cessation Counseling Kaveh Bass MD completed EKG Kaveh sterling MD completed SNOMED-CT: [id number] Current Medications Documented Kaveh Bass MD completed SNOMED-CT: [id number] Smoking Cessation Counseling Kaveh Bass MD completed EKG Kaveh sterling MD completed SNOMED-CT: [id number] Current Medications Documented Kaveh Bass MD completed SNOMED-CT: [id number] Smoking Cessation Counseling Kaveh Bass MD completed EKG Kaveh sterling MD completed SNOMED-CT: [id number] Current Medications Documented Kaveh Bass MD completed Device Check - Life vest Kaveh Bass MD completed SNOMED-CT: 565590593 Smoking Cessation Counseling Kaveh Bass MD completed SNOMED-CT: [id number] Current Medications Documented Kaveh Bass MD completed EKG Jignesh Sanchez MD complete d SNOMED-CT: [id number] Current Medications Documented Jignesh Sanhcez MD completed
--- OUTSIDE RECORDS SUMMARY | 2024-06-23 09:34 | XMS_ITS | Clinical Summary ---
Author Organization [facility] Address [address] [place] [address] Care Team Providers Care Dining Service Inspector Name Role Phone Yves Wilson DO Primary Care Provider [phone] Kaveh Bass MD Unavailable [phone] Carlos Lorenzo MD Unavailable Allergies No known active allergies Medications clopidogreL (PLAVIX) 75 mg tablet Take 1 tablet (75 mg total) by mouth daily Active ezetimibe (ZETIA) 10 mg tablet Take 1 tablet (10 mg total) by mouth daily 3 Active enalapril (VASOTEC) 5 mg tablet Take 1 tablet (5 mg total) by mouth 2 (two) times a day 8 Active magnesium oxide (MAG-OX) 400 mg (241.3 mg elemental magnesium) tablet Take 1 tablet (400 mg total) by mouth daily Active atorvastatin (LIPITOR) 40 mg tablet Take 1 tablet (40 mg total) by mouth nightly Active acetaminophen 500 mg capsuleIndications :Pain Take 2 capsules (1,000 mg total) by mouth every 8 (eight) hours 30 tablet 1 4 Active carvediloL (COREG) 3.125 mg tablet Take 3 tablets (9.375 mg total) by mouth 2 (two) times a day after breakfast and dinner 180 tablet 11 4 08/08/19 25 Active cyanocobalamin (Vitamin B-12) 2,000 mcg tabletIndications: Prevention of Vitamin B12 Deficiency Take 1 tablet (2,000 mcg total) by mouth daily 90 tablet 3 4 08/09/19 25 Active gabapentin (NEURONTIN) 300 mg capsule Take 1 capsule (300 mg total) by mouth 3 (three) times a day 90 capsule 11 4 08/08/19 25 Active rivaroxaban (XARELTO) 20 mg tabletIndications: deep venous thrombosis,Left Fem-pop bypass patency Take 1 tablet (20 mg total) by mouth daily with dinner for 90 doses 30 tablet 2 4 Active acetaminophen-code ine (TYLENOL with CODEINE #3) 300-30 mg per tabletIndications: Primary osteoarthritis of left knee,Chronic pain of left knee Take 1 tablet by mouth every 4 (four) hours as needed for pain 20 tablet 4 Active Active Problems Problem Noted Date Diagnosed Date Osteomyelitis 07/31/2023 Non-healing wound of left lower extremity 2023 Primary hypertension 04/30/2023 Assessment & Plan (12/20/2023 11:12 AM CDT): Stable continue Coreg Assessment & Plan (08/02/2023 7:27 AM CDT): Stable continue Coreg 6.25 mg. Assessment & Plan (06/12/2023 9:40 AM AIR POLLUTION CONTROL ENGINEER): Stable continue Coreg 6.25 mg. Assessment & Plan (04/30/2023 11:35 AM AIR POLLUTION CONTROL ENGINEER): Impression: Chronic stable. Plan: Continue carvedilol Arteriosclerosis of coronary artery 04/29/2023 04/29/2023 Cardiomyopathy 04/29/2023 04/29/2023 Chronic systolic heart failure (CMS/HCC) 023 04/29/2023 Disorder of the skin and subcutaneous tissue, un specified 04/29/2023 04/29/2023 Peripheral vascular disease, unspecified 023 04/29/2023 Assessment & Plan (12/20/2023 11:12 AM CDT): Patent left common femoral artery to anterior tibial artery bypass. Continue risk factor modification with Plavix, Xarelto statin therapy. Follow up in 6 months repeat noninvasives. Assessment & Plan (09/25/2023 8:50 AM CDT): Status post left common femoral artery to anterior tibial artery bypass. Clinically the left hallux wound has healed. There is no purulent drainage surrounding erythema or tenderness. Continue Plavix and Xarelto. Follow up in 3 months with repeat left lower extremity arterial duplex Assessment & Plan (09/12/2023 2:28 PM CDT): Patient following up today for staple removal to the left groin. Previously had the michael removed to the left calf. Incisions have healed. Patient denies any symptoms of claudication or rest pain. The lower extremities warm well perfused. Left groin michael were removed in the office today. Will follow-up in the next few weeks for a wound check to the left foot toe. Assessment & Plan (09/04/2023 9:21 AM CDT): Status post left fem PT bypass, missed multiple appointments due to a month long episode of diarrhea. He is hypotensive in the office and I suspect this may be related to C diff. I have recommended admission to the hospital for further evaluation. Discontinue aspirin. Continue Plavix and Xarelto. Assessment & Plan (08/02/2023 7:27 AM CDT): Left popliteal occlusion with worsening of left hallux wound. Discussed findings with the patient with recommendation for admission to the hospital for IV antibiotics, MRI and possible revascularization. Assessment & Plan (06/12/2023 9:40 AM AIR POLLUTION CONTROL ENGINEER): Left lower extremity PVD with a left hallux wound. Discussed findings of the angiogram with the patient with specifically a popliteal artery occlusion as well as posterior tibial and peroneal occlusion, based on his wound I have recommended a left common femoral artery to anterior tibial artery bypass. He is trying to undergo a total knee by Dr. Wise, discussed if he has a fem tibial bypass the likelihood of being able to undergo a total knee replacement is limited. More importantly if he has osteomyelitis of the hallux this would not be put on hold. MRI pending later this month. I will discuss with Dr. Wise and get back with him. Assessment & Plan (05/24/2023 10:27 AM AIR POLLUTION CONTROL ENGINEER): Nonhealing ulcer to the left 1st toe arterial Doppler shows evidence of multilevel arterial occlusive disease and patient is in need of an angiogram. Discussed the procedure with the patient as well as its potential risks answered all questions at this time. He is agreeable and wishes to proceed. Discussed the patient also with Dr. Lorenzo. Implantable cardioverter-defibrillator (ICD) in situ 04/29/2023 04/29/2023 Mixed hyperlipidemia 04/29/2023 04/29/2023 Assessment & Plan (12/20/2023 11:12 AM CDT): Stable continue Lipitor 40 mg. Assessment & Plan (08/02/2023 7:27 AM CDT): Stable Lipitor 40 mg. Assessment & Plan (06/12/2023 9:40 AM AIR POLLUTION CONTROL ENGINEER): Recommend statin therapy. Assessment & Plan (04/30/2023 11:35 AM AIR POLLUTION CONTROL ENGINEER): Impression: Chronic stable. Plan: Continue atorvastatin and Zetia Nail dystrophy 04/29/2023 04/29/2023 Neuropathy 04/29/2023 04/29/2023 Other general symptoms and signs 04/29/2023 04/29/2023 Other psoriasis 04/29/2023 04/29/2023 Rash and other nonspecific skin eruption 023 04/29/2023 Pressure ulcer of unspecified site, stage 1 04/1204/29/2023 Sensorineural hearing loss, bilateral 04/29/2023 04/29/2023 Open wound of left great toe 03/21/2023 Assessment & Plan (04/30/2023 11:34 AM AIR POLLUTION CONTROL ENGINEER): Impression: Patient has an open ulceration to the tip of his left 1st toe that has been present approximately 2 months. No erythema or drainage noted. Unable to probe bone on exam. Nonpalpable pulses are noted to the left foot. Plan: Patient to follow-up in 2 weeks for re-evaluation with lower extremity arterial Doppler. -recommend MRI of the left foot for further evaluation of underlying bone infection. -continue daily dressing changes with triple antibiotic ointment and dry gauze. -recommend proper offloading to left foot to heel touch only with ambulation. Assessment & Plan (03/21/2023 3:36 PM AIR POLLUTION CONTROL ENGINEER): Unfortunately, the patient has a wound on his great toe. There is no evidence of infection. We will have to monitor this to determine if the patient will be okay to move forward with surgery on 04/11/2023. Patient will continue to follow up with his automatic blocker for treatment of the wound. He will return next week on 03/28/[address] Wise to examine the wound and determine if we are able to move forward with surgery on 04/11/2023. Disorder of carotid artery (CMS/HCC) 03/01/2023 Primary osteoarthritis of left knee 11/01/2022 Assessment & Plan (04/01/2024 8:23 AM AIR POLLUTION CONTROL ENGINEER): Unfortunately, the patient continues to have left knee pain secondary to primary osteoarthritis of the left knee. He is not a good candidate for total knee replacement due to having a left femoral to anterior tibial femoral artery bypass graft. I discussed further treatment options with the patient including steroid injection, referral to pain management, or referral to [facility] to see if they would be able to accomplish a partial or total knee replacement without damaging the bypass graft. At this time, the patient feels his pain is not bothering him enough to want to pursue any of these options. He would like to continue as is and will follow up if his pain worsens. He will follow up p.r.n.. He expressed understanding and agreement with the plan. Assessment & Plan (01/23/2024 8:14 AM CDT): Patient unfortunately continues has significant pain in the left knee secondary to severe arthritis of the left knee. He is unable to undergo total knee replacement due to his IT graft. We would like to move forward with his 3rd Euflexxa injection today. Tolerated the procedure well, see procedure note. Recommended icing the knees tonight. Follow up prn. Assessment & Plan (01/16/2024 9:00 AM CDT): Patient unfortunately continues has significant pain in the left knee secondary to severe arthritis of the left knee. He is unable to undergo total knee replacement due to his IT graft. We would like to move forward with his 2nd Euflexxa injection today. Tolerated the procedure well, see procedure note. Recommended icing the knees tonight. We will follow up in 1 week for his next injection. Assessment & Plan (01/09/2024 10:34 AM CDT): Patient unfortunately continues has significant pain in the left knee secondary to severe arthritis of the left knee. He is unable to undergo total knee replacement due to his IT graft. We discussed treatment options and he is okay with moving forward with the Euflexxa injection today. Tolerated the procedure well, see procedure note. Recommended icing the knees tonight. We will follow up in 1 week for his next injection. Assessment & Plan (12/04/2023 1:47 PM CDT): The patient unfortunately has severe osteoarthritis of the left knee which is causing significant pain and limitations in the patient's ability to perform his ADLs. I will discuss with Dr. Lorenzo and Dr. Wise what path we may move forward on with the patient to provide as much pain relief as possible for him. The patient was given a knee brace today in clinic, but was instructed not to wear until I am able to have further discussion with his other providers. We did discuss other treatment options such as injection, but the patient declined injection today. We will contact the patient with the treatment plan in the near future. He expressed understanding and agreement with the plan. Dizziness 07/27/2022 Ventricular tachycardia 07/15/2020 Pacemaker 01/09/2018 08/27/2022 Spondylosis of lumbar region without myelopathy or radiculopathy 01/09/2018 08/27/2022 Low back pain 12/06/2017 Chest pain 11/25/2015 Congestive heart failure (CMS/HCC) 11/25/2015 Acute subendocardial infarction (CMS/HCC) 2014 Encounters Date Type Department Care Team Description 06/04/[address] [facility] Vascular and Vein Surgery [address] [place] [address] Carlos Lorenzo MD Peripheral vascular disease, unspecified (HCC) (Primary Dx) 05/18/2024 Orders Only [facility] [address] [place] [facility] [place] [address] Frantz Jasso MD 04/01/2024 8:00 AM AIR POLLUTION CONTROL ENGINEER Office Visit [facility] Orthopedics and Sports Medicine [address] [place] [address] Tanna Lemon PA Primary osteoarthritis of left knee (Primary Dx); Chronic pain of left knee 04/01/2024 7:55 AM AIR POLLUTION CONTROL ENGINEER - 04/01/2024 11:59 PM AIR POLLUTION CONTROL ENGINEER Hospital Encounter [facility] [address] [place] [address] Primary osteoarthritis of left knee Discharge Disposition: Discharge to home or self care from Last 3 Months Immunizations Name Administration Dates Next Due Influenza, Unspecified 03/13/2017,03/19/2005 Moderna SARS-CoV-2 Monovalent Vaccination (12+ Y RS) 08/06/2020,07/09/2020 Tdap 02/06/2018,06/28/2006 Surgical History Surgery Date Site/Laterality Comments FOOT SURGERY Right hammer toe pins present FOOT SURGERY Left heel surgery injury PARTIAL KNEE ARTHROPLASTY Right HERNIA REPAIR Left LIH SPINE SURGERY lumbar spine cages present CARDIAC DEFIBRILLATOR PLACEMENT 05/13/2015 - 05/12/2016 Left Dual-chamber defibrillator generator, right atrial pacing lead, and right, left upper chest Biotronik EAR SURGERY Left ear drum surgery CORONARY ANGIOPLASTY WITH STENT PLACEMENT 05/13/2012 - 05/12/2013 2 stents present Medical History Medical History Date Comments Hypertension Cardiomyopathy (HCC) CHF (congestive heart failur e) (CMS/HCC) (HCC) Myocardial infarct, old 2012 HLD (hyperlipidemia) mixed HL (hearing loss) bilat wears he aring aides Neuropathy (CMS/HCC) feet Ischemic foot right great toe dressing intact seeing PA at Dr Wise office 03/21/23 also seeing pod. at [facility] Social History Tobacco Use Types Packs/Day Years Used Date Smoking Tobacco: Every Day Cigarettes 0.2 60 Smokeless Tobacco: Never Tobacco Cessation:Ready to Q uit: Not Asked; Counseling Given: Not Answered [facility] Utilities Answer Date Recorded In the past 12 months has th e electric, gas, oil, or water company threatened to shut off services in your home? No 08/01/2023 Social Connection and Isolat ion Panel [NHANES] Answer Date Recorded In a typical week, how many times do you talk on the phone with family, friends, or neighbors? Three times a week 08/01/2023 How often do you get togethe r with friends or relatives? Three times a week 08/01/2023 How often do you attend chur ch or mosque services? Never 08/01/2023 Do you belong to any clubs o r organizations such as caodaism groups, unions, fraternal or athletic groups, or school groups? Yes 08/01/2023 How often do you attend meet ings of the clubs or organizations you belong to? More than 4 times per year 08/01/2023 Are you , , di vorced, , never , or living with a partner? Patient declined 08/01/2023 AUDIT-C Answer Date Recorded Q1: How often do you have a drink containing alc ohol? 2-3 times a week 06/07/2023 Q2: How many drinks containi ng alcohol do you have on a typical day when you are drinking? 1 or 2 06/07/2023 Q3: How often do you have si x or more drinks on one occasion? Never 06/07/2023 Overall Financial Resource Strain (CARDIA) Answe r Date Recorded How hard is it for you to pa y for the very basics like food, housing, medical care, and heating? Not hard at all 08/01/2023 Hunger Vital Sign Answer Date Recorded Within the past 12 months, y ou worried that your food would run out before you got the money to buy more. Never true 08/01/19 24 Within the past 12 months, t he food you bought just didn't last and you didn't have money to get more. Never true 08/01/2023 PRAPARE - Transportation Answer Date Re corded In the past 12 months, has l ack of transportation kept you from medical appointments or from getting medications? No 07/12 In the past 12 months, has l ack of transportation kept you from meetings, work, or from getting things needed for daily living? No 08/01/2023 Housing Stability Vital Sign Answer Gaudencio e Recorded In the last 12 months, was t here a time when you were not able to pay the mortgage or rent on time? No 08/01/2023 In the last 12 months, how many places have you lived? 1 08/01/2023 In the last 12 months, was t here a time when you did not have a steady place to sleep or slept in a retirement (including now)? No 08/01/2023 Personal Safety Answer Date Recorded Have you ever been in or are you currently in a harmful physical or emotional relationship or is someone making you feel afraid or unsafe? Denies 08/29/2023 Sex and Gender Information Value Date Recorded Sex Assigned at Not on file Legal Sex Male 8:33 AM AIR POLLUTION CONTROL ENGINEER Gender Identity Not on file Sexual Orientation Not on file Obstetrics History Last Filed Vital Signs Vital Sign Reading Time Taken Comments Blood Pressure 115/70 12/18/2023 9:23 AM CDT Pulse 68 12/18/2023 9:23 AM CDT Temperature 36.6 C (97.8 F) 08/30/2023 6:30 AM CDT Respiratory Rate 22 08/30/2023 6:30 AM CDT Oxygen Saturation 93% 12/18/2023 9:23 AM CDT Inhaled Oxygen Concentration - - Weight 74.8 kg (165 lb) 04/01/2024 8:10 AM AIR POLLUTION CONTROL ENGINEER Height 177.8 cm (5' 10 ) 04/01/2024 8:10 AM AIR POLLUTION CONTROL ENGINEER Body Mass Index 23.68 04/01/2024 8:10 AM AIR POLLUTION CONTROL ENGINEER Plan of Treatment Health Maintenance Due Date Last Done Comments Depression Screening 1945 Hepatitis C Screening 1945 Pneumococcal vaccine 65+ (1 of 2 - PCV) 1953 Hepatitis B Screening 1965 Zoster Vaccine (1 of 2) 1997 Well Visit 65+ 02/16/2012 Covid-19 Vaccine ( season) 2024, 07/09/2020 Influenza Vaccine (#1) 2024 03/13/2017, 2004 Fall Risk Assessment 08/07/2024 08/08/2023 DTaP/Tdap/Td Vaccine (3 - Td or Tdap) 02/07/2028, 06/28/2006 Medical Devices Implanted Type Area Is/It Project Manager Device Identifier Shelf Expiration Date Model / Serial / Lot Biotronik Ra Lead Setrox S-53-02/16/2016 Implanted:02/15 (Quantity not on file) Lead Heart Biotronik SETROX S 53 / [id number] / Biotronik Rv Lead Protego S 65-02/16/2016 Implanted:02/15 (Quantity not on file) Lead Heart Biotronik PROTEGO S 65 / [id number] / Cages N/A: Spine Lumbar Partial Knee Replacement Right: Knee Screws Right: First Toe Biotronik Icd [place] 7 Dr-T-02/16/2016 Implanted:02/15 (Quantity not on file) Left: Chest Wall [employer] Dudley 6mm 80cm Stretch Thin Wall Graft Vascular Heparin Propaten [id number] - [id number] - [id number] Implanted:Qty: 1 on 08/05/2023 by Carlos Lorenzo MD at [facility] Left: Groin [employer] 01/07/2027 [id number] / [id number] / Procedures Procedure Name Priority Date/Time Associated Diagnosis Comments SCAN - RADIOLOGY/IMAGIN G 05/18/2024 11:39 AM AIR POLLUTION CONTROL ENGINEER SCAN - RADIOLOGY/IMAGIN G 05/18/2024 9:40 AM AIR POLLUTION CONTROL ENGINEER XR KNEE LEFT 3 VIEWS Schedule Routine, Read Routine (OP Routine) 04/01/2024 8:02 AM AIR POLLUTION CONTROL ENGINEER Primary osteoarthritis of left knee from Last 3 Months Results * SCAN - RADIOLOGY/IMAGING (05/18/2024 11:39 AM AIR POLLUTION CONTROL ENGINEER) Anatomical Region Laterality Modality Other us Frantz Jasso MD Final Result * SCAN - RADIOLOGY/IMAGING (05/18/2024 9:40 AM AIR POLLUTION CONTROL ENGINEER) Anatomical Region Laterality Modality Other us Frantz Jasso MD Final Result * XR Knee Left 3 View (04/01/2024 8:02 AM AIR POLLUTION CONTROL ENGINEER) Anatomical Region Laterality Modality Lower Extremities, Knee Left Computed Radiography 04/03/2024 12:5 6 PM AIR POLLUTION CONTROL ENGINEER Narrative 04/03/2024 12:58 PM AIR POLLUTION CONTROL ENGINEER EXAM DESCRIPTION: XR KNEE LEFT 3 VIEWS REASON FOR STUDY: PAIN General knee pain for 1.5 years, no injury FINDINGS: Three views submitted with comparison 03/28/2023. There is severe medial predominant left knee osteoarthritis. Chondrocalcinosis is present. A small knee effusion is noted. No acute fractures are identified. Arterial atherosclerosis and medial unicompartmental right knee arthroplasty are noted. IMPRESSION: Severe medial predominant left knee osteoarthritis with a small effusion. THIS IS AN ELECTRONICALLY VERIFIED FINAL REPORT 04/03/2024 12:58 PM - Electronically signed by Bi Hutchins M.D. T: Report ID: [id number] Reading Location: [id number] Procedure Note Bi Hutchins MD - 04/03/2024 EXAM DESCRIPTION: XR KNEE LEFT 3 VIEWS REASON FOR STUDY: PAIN General knee pain for 1.5 years, no injury FINDINGS: Three views submitted with comparison 03/28/2023. There is severe medial predominant left knee osteoarthritis. Chondrocalcinosis is present. A small knee effusion is noted. No acute fractures are identified. Arterial atherosclerosis and medial unicompartmental right knee arthroplasty are noted. IMPRESSION: Severe medial predominant left knee osteoarthritis with a smalleffusion. THIS IS AN ELECTRONICALLY VERIFIED FINAL REPORT 04/03/2024 12:58 PM - Electronically signed by Bi Hutchins M.D. T: Report ID: [id number] Reading Location: [id number] Tanna GUTIERREZ IMG XR PROCEDURES Final Re sult from Last 3 Months Insurance [facility] OFFICE [facility] Advance Directives For more information, please contact: [phone] * Full Code (Latest Code Status on File) Date Activated Date Inactivated Comments 07/31/2023 6:23 PM 08/08/2023 8:34 PM * Full Code Date Activated Date Inactivated Comments 06/07/2023 6:19 PM 06/07/2023 10:25 PM Care Teams Dining Service Inspector Relationship Specialty Start Date End Date Yves Wilson DO PCP - General Internal Medicine 08/13/22 [place] [id number] [address] Consulting Physician Cardiology 12/03/22 Carlos Lorenzo MD [address] [facility] [address] [address] Consulting Physician Vascular Surgery 08/08/23
--- OUTSIDE RECORDS SUMMARY | 2024-06-23 09:34 | XMS_ITS | Referral Summary ---
Author Organization [facility] Address [address] [place] [address] Care Team Providers Care Infrastructure Consultant Name Role Phone Yves Wilson DO Primary Care Provider [phone] Kaveh Bass MD Unavailable [phone] Carlos Lorenzo MD Unavailable Encounters Date Type Department Care Team Description 06/04/2024 Orders Only [facility] Medical [facility] Vascular and Vein Surgery [facility] [address] [place] [phone] Carlos Lorenzo MD Peripheral vascular disease, unspecified (HCC) (Primary Dx) 05/18/2024 Orders Only [facility] [address] [place] [address] 13[facility] [place] [address] Frantz Jasso MD 04/01/2024 7:55 AM NUCLEAR PHYSICS TEACHER - 04/01/2024 11:59 PM NUCLEAR PHYSICS TEACHER Hospital Encounter [facility] Diag Imaging [address] [place] [address] Primary osteoarthritis of left knee Discharge Disposition: Discharge to home or self care 04/01/2024 8:00 AM NUCLEAR PHYSICS TEACHER Office Visit [facility] Orthopedics and Sports Medicine [address] [place] [address] [address] [place] [phone] Tanna Lemon PA Primary osteoarthritis of left knee (Primary Dx); Chronic pain of left knee from Last 3 Months Allergies No known active allergies Medications clopidogreL [...] mg. Assessment & Plan (06/12/2023 9:40 AM NUCLEAR PHYSICS TEACHER): Stable continue Coreg 6.25 mg. Assessment & Plan (04/30/2023 11:35 AM NUCLEAR PHYSICS TEACHER): Impression: Chronic stable. Plan: Continue carvedilol Arteriosclerosis [...] revascularization. Assessment & Plan (06/12/2023 9:40 AM NUCLEAR PHYSICS TEACHER): Left lower extremity PVD with a left [...] him. Assessment & Plan (05/24/2023 10:27 AM NUCLEAR PHYSICS TEACHER): Nonhealing ulcer to the left 1st toe [...] mg. Assessment & Plan (06/12/2023 9:40 AM NUCLEAR PHYSICS TEACHER): Recommend statin therapy. Assessment & Plan (04/30/2023 11:35 AM NUCLEAR PHYSICS TEACHER): Impression: Chronic stable. 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 Assessment & Plan (03/21/2023 3:36 PM NUCLEAR PHYSICS TEACHER): Unfortunately, the patient has a wound on his great toe. There is no evidence of infection. We will have to monitor this to determine if the patient will be okay to move forward with surgery on 04/11/2023. Patient will continue to follow up with his human resources operations manager for treatment of the wound. He will return next week on 03/28/[address] Wise to examine the wound and determine if we are able to move forward with surgery on 04/11/2023. Disorder of carotid artery (CMS/HCC) 03/01/2023 Primary osteoarthritis of left knee 11/01/2022 Assessment & Plan (04/01/2024 8:23 AM NUCLEAR PHYSICS TEACHER): Unfortunately, the patient continues to have left knee pain secondary to primary osteoarthritis of the left knee. He is not a good candidate for total knee replacement due to having a left femoral to anterior tibial femoral artery bypass graft. 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 Immunizations Name Administration Dates Next Due Influenza, Unspecified 03/13/2017,03/19/2005 Moderna SARS-CoV-2 Monovalent Vaccination (12+ Y RS) 08/06/2020,07/09/2020 Tdap 02/06/2018,06/28/2006 Social History Tobacco Use Types Packs/Day Years Used Date Smoking Tobacco: Every Day Cigarettes 0.2 60 Smokeless Tobacco: Never Tobacco Cessation:Ready to Q uit: Not Asked; Counseling Given: Not Answered [facility] Utilities Answer Date Recorded In the past 12 months has [employer], or water [employer] threatened to shut off services in your [...] 08/01/2023 How often do you attend chur or church services? Never 08/01/2023 Do you belong to any clubs o r organizations such as advent groups, unions, fraternal or athletic groups, or [...] place to sleep or slept in a custodial (including now)? No 08/01/2023 Personal Safety Answer Date Recorded Have you ever been in or are you currently in a harmful physical or emotional relationship or is someone making you feel afraid or unsafe? Denies 08/29/2023 Sex and Gender Information Value Date Recorded Sex Assigned at Not on file Legal Sex Male 8:33 AM NUCLEAR PHYSICS TEACHER Gender Identity Not on file Sexual Orientation [...] 74.8 kg (165 lb) 04/01/2024 8:10 AM NUCLEAR PHYSICS TEACHER Height 177.8 cm (5' 10 ) 04/01/2024 8:10 AM NUCLEAR PHYSICS TEACHER Body Mass Index 23.68 04/01/2024 8:10 AM NUCLEAR PHYSICS TEACHER Plan of Treatment Not on file Medical Devices Implanted Type Area Gas Station Clerk Device Identifier Shelf Expiration Date Model / Serial / Lot Biotronik Ra Lead Setrox S-53-02/16/2016 Implanted:02/15 (Quantity not on file) Lead Heart Biotronik SETROX S 53 / [id number] / Biotronik Rv Lead Protego S 65-02/16/2016 Implanted:02/15 (Quantity not on file) Lead Heart Biotronik PROTEGO S 65 / [id number] / Cages N/A: Spine Lumbar Partial Knee Replacement Right: Knee Screws Right: First Toe Biotronik Icd Iperia 7 Dr-T-02/16/2016 Implanted:02/15 (Quantity not on file) Left: Chest Wall W[employer] 6mm 80cm Stretch Thin Wall Graft Vascular Heparin Propaten [id number] - [id number] - [id number] Implanted:Qty: 1 on 08/05/2023 by Carlos Lorenzo MD at [facility] Left: Groin Wl [employer] 01/07/2027 [id number] / [id number] / Procedures Procedure Name Priority Date/Time Associated Diagnosis Comments SCAN - RADIOLOGY/IMAGIN G 05/18/2024 11:39 AM NUCLEAR PHYSICS TEACHER SCAN - RADIOLOGY/IMAGIN G 05/18/2024 9:40 AM NUCLEAR PHYSICS TEACHER XR KNEE LEFT 3 VIEWS Schedule Routine, Read Routine (OP Routine) 04/01/2024 8:02 AM NUCLEAR PHYSICS TEACHER Primary osteoarthritis of left knee from Last 3 Months Results * SCAN - RADIOLOGY/IMAGING (05/18/2024 11:39 AM NUCLEAR PHYSICS TEACHER) Anatomical Region Laterality Modality Other us Frantz Jasso MD Final Result * SCAN - RADIOLOGY/IMAGING (05/18/2024 9:40 AM NUCLEAR PHYSICS TEACHER) Anatomical Region Laterality Modality Other us Frantz Jasso MD Final Result * XR Knee Left 3 View (04/01/2024 8:02 AM NUCLEAR PHYSICS TEACHER) Anatomical Region Laterality Modality Lower Extremities, Knee Left Computed Radiography 04/03/2024 12:5 6 PM NUCLEAR PHYSICS TEACHER Narrative 04/03/2024 12:58 PM NUCLEAR PHYSICS TEACHER EXAM DESCRIPTION: XR KNEE LEFT 3 VIEWS [...] by Bi Hutchins M.D. T: Report ID: [id number] Reading Location: [id number] Procedure Note Bi Hutchins MD - 04/03/2024 [...] by Bi Hutchins M.D. T: Report ID: [id number] Reading Location: [place] [address] Tanna GUTIERREZ IMG XR PROCEDURES Final Re sult from Last 3 Months Insurance [facility] Member Subscriber Plan / Payer (Ef fective 2020-Present) Name:Ariel See Relation to Subscriber:Self Name:Ariel See Payer ID:[id number] ([facility]) Type:MEDICARE RISK OTHER Address: [address] CARE Advance Directives For more information, please contact: [phone] * Full Code (Latest Code Status on File) Date Activated Date Inactivated Comments 07/31/2023 6:23 PM 08/08/2023 8:34 PM * Full Code Date Activated Date Inactivated Comments 06/07/2023 6:19 PM 06/07/2023 10:25 PM Care Teams Infrastructure Consultant Relationship Specialty Start Date End Date Yves Wilson DO PCP - General Internal Medicine 08/13/22 [place] [id number] [address] Consulting Physician Cardiology 12/03/22 Carlos Lorenzo MD [address] [place] [address] [place] [address] Consulting Physician Vascular Surgery 08/08/23
== END 2024-06-23 08:50 | disposition home or self-care (01) ==
LOC: ANHIMG 08:53
PROVIDERS: PCP Internal Medicine; Visit Provider Nurse Practitioner
DX: R91.1 Solitary pulmonary nodule (principal)
CPT/HCPCS: 71250

== ENCOUNTER 2024-12-08 10:24 | Outpatient (CLI) | payer OTHER, SELFPAY ==
--- NOTE | ~2024-12-08 | PE_ITS ---
EXAMINATION: PET skull to mid thigh DATE: 12/08/2024 13:11 INDICATION: Solitary pulmonary nodule TECHNIQUE: Blood glucose level was 78 mg/dL. 11.494 mCi of 18-fluorodeoxyglucose (18-FDG) was adminis tered i.v. Low dose computed tomography (CT) images were acquired from the base of the brain to the p roximal thighs for attenuation correction and anatomic localization. Positron emission tomography (PE T) images were acquired in the same distribution beginning 71 minutes after injection. Images includi ng fused PET/CT images were reconstructed in axial, coronal, and sagittal planes. Automated exposure control technique was employed. The dose-length product was 917.89mGy-cm. COMPARISON: None FINDINGS: Head/neck: There is symmetric increased activity in the nares, oral cavity, palatine tonsils, laryngeal muscles, posterior cervical paraspinal muscles and ocular muscles without CT correlate, likely physiologic. N o pathologically enlarged cervical lymphadenopathy or suspicious foci of increased FDG uptake in the visualized head or neck. Chest: Calcified nodule at the lingula along with calcified left hilar lymph nodes consistent with old granu lomatous disease. Unchanged 9 mm pleural-based nodule at the medial right middle lobe and 5 mm subple ural nodule in the superior segment of the right lower lobe, both without evident FDG activity. Mild dependent atelectasis in the bilateral lower lobes. No pleural effusion. Heart size is normal. Athero sclerotic coronary artery calcification. Dual-lead cardiac pacemaker with lead tips at the right atri al appendage and near the apex of the right ventricle. No pericardial effusion. No pathologically enl arged or FDG avid thoracic lymphadenopathy. Small sliding-type hiatal hernia. Abdomen/pelvis/proximal thighs: Physiologic renal accumulation and excretion of FDG activity in the kidneys, bladder and along portio ns of ureters. Normal degree and heterogenous pattern of increased uptake throughout the liver withou t radiologic correlate or dominant FDG avid lesion. The gallbladder, pancreas, spleen and bilateral a drenal glands are normal. Mild uptake scattered throughout the bowels without radiologic correlate, a lso likely physiologic. Normal appendix. Prostatomegaly measuring 5.3 x 3.7 cm. No other abnormal foc i of increased FDG uptake or pathologically enlarged lymphadenopathy in the abdomen, pelvis or proxim al thighs. Musculoskeletal: Severe cervical, thoracic and lumbar spondylosis. L4-L5 instrumented anterior and posterior spinal fu dmitry with interbody bone graft cage and bilateral vertical domonique and pedicle screw fixation. Left total hip arthroplasty. No suspicious lytic, blastic or abnormally FDG avid bone lesions. IMPRESSION: 1. No change in size or evident FDG activity associated with the previously seen 9 mm right middle lo be or 5 mm right lower lobe pulmonary nodules. While reassuring and suggests these are most likely re lated to old granulomatous disease, cannot absolutely exclude slowly growing malignancy and would rec ommend continued follow-up with additional 6 month low-dose noncontrast chest CT. Reviewed, dictated and finalized at location A. IMPRESSION: 1. No change in size or evident FDG activity associated with the previously see n 9 mm right middle lobe or 5 mm right lower lobe pulmonary nodules. While reas suring and suggests these are most likely related to old granulomatous disease, cannot absolutely exclude slowly growing malignancy and would recommend contin ued follow-up with additional 6 month low-dose noncontrast chest CT.
--- OUTSIDE RECORDS SUMMARY | 2024-12-08 10:39 | XMS_ITS | Referral Summary ---
Author Organization [facility] Address [address] [place] [address] Care Team Providers Care Business Development Associate Name Role Phone Yves Wilson DO Primary Care Provider [phone] Kaveh Bass MD Unavailable [phone] Carlos Lorenzo MD Unavailable Forrest Wise DO Unavailable [phone] Malena Mayo MD Unavailable Encounters Date Type Department Care Team Description 11/24/2024 12:42 PM CDT - 11/24/2024 11:59 PM CDT Hospital Encounter [facility] Orthopedic [facility] Neuroscience Ctr Pain Mgmt [address] [address] Malena Mayo MD Primary osteoarthritis of left knee (Primary Dx) Discharge Disposition: Discharge to home or self care 10/26/2024 7:49 AM CDT - 10/26/2024 11:59 PM CDT Hospital Encounter [facility] Pain [facility] [address] [address] Malena Mayo MD Primary osteoarthritis of left knee Discharge Disposition: Discharge to home or self care 10/22/2024 7:39 AM CDT - 10/22/2024 11:59 PM CDT Hospital Encounter [facility] Pain [facility] [address] [address] Malena Mayo MD Primary osteoarthritis of left knee (Primary Dx) Discharge Disposition: Discharge to home or self care from Last 3 Months Allergies No known [...] breakfast and dinner 180 tablet 11 4 Active cyanocobalamin (Vitamin B-12) 2,000 mcg tabletIndications: Prevention of Vitamin B12 Deficiency Take 1 tablet (2,000 mcg total) by mouth daily 90 tablet 3 4 Active gabapentin (NEURONTIN) 300 mg capsule Take 1 capsule (300 mg total) by mouth 3 (three) times a day 90 capsule 11 4 Active rivaroxaban (XARELTO) 20 mg tabletIndications: deep [...] needed for pain 20 tablet 4 Active meloxicam (MOBIC) 7.5 mg tabletIndications: Osteoarthritis Take 1 tablet (7.5 mg total) by mouth daily 30 tablet 5 Active Active Problems Problem Noted Date Diagnosed Date Osteomyelitis 07/31/2023 Non-healing wound of left lower extremity 2023 Primary hypertension 04/30/2023 Assessment & Plan (06/29/2024 10:30 AM COTTON WASHER): Stable continue Coreg Assessment & Plan (12/20/2023 11:12 AM CDT): Stable continue Coreg Assessment & Plan (08/02/2023 7:27 AM CDT): Stable continue Coreg 6.25 mg. Assessment & Plan (06/12/2023 9:40 AM COTTON WASHER): Stable continue Coreg 6.25 mg. Assessment & Plan (04/30/2023 11:35 AM COTTON WASHER): Impression: Chronic stable. Plan: Continue carvedilol Arteriosclerosis of coronary artery 04/29/2023 04/29/2023 Cardiomyopathy 04/29/2023 04/29/2023 Chronic systolic heart failure 04/29/2023 1 06/30/2022 Disorder of the skin and subcutaneous tissue, un specified 04/29/2023 04/29/2023 Peripheral vascular disease, unspecified 023 04/29/2023 Assessment & Plan (06/29/2024 10:29 AM COTTON WASHER): Widely patent left fem PT bypass. Continue risk factor modification with Plavix Xarelto and statin therapy. Follow up in 6 months with repeat noninvasives testing. Assessment & Plan (12/20/2023 11:12 AM CDT): [...] revascularization. Assessment & Plan (06/12/2023 9:40 AM COTTON WASHER): Left lower extremity PVD with a left [...] him. Assessment & Plan (05/24/2023 10:27 AM COTTON WASHER): Nonhealing ulcer to the left 1st toe [...] Mixed hyperlipidemia 04/29/2023 04/29/2023 Assessment & Plan (06/29/2024 10:29 AM COTTON WASHER): Stable continue Lipitor Assessment & Plan (12/20/2023 11:12 AM CDT): Stable continue Lipitor 40 mg. Assessment & Plan (08/02/2023 7:27 AM CDT): Stable Lipitor 40 mg. Assessment & Plan (06/12/2023 9:40 AM COTTON WASHER): Recommend statin therapy. Assessment & Plan (04/30/2023 11:35 AM COTTON WASHER): Impression: Chronic stable. 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 Assessment & Plan (03/21/2023 3:36 PM COTTON WASHER): Unfortunately, the patient has a wound on his great toe. There is no evidence of infection. We will have to monitor this to determine if the patient will be okay to move forward with surgery on 04/11/2023. Patient will continue to follow up with his college admissions counselor for treatment of the wound. He will return next week on 03/28/[address] Wise to examine the wound and determine if we are able to move forward with surgery on 04/11/2023. Disorder of carotid artery 03/01/2023 Primary osteoarthritis of left knee 11/01/2022 Assessment & Plan (07/06/2024 9:07 AM COTTON WASHER): I discussed treatment options today with the patient. Unfortunately, he does have moderate to severe osteoarthritis of the left knee and is unable to undergo a total knee replacement. He has failed other conservative measures including injections. He was unable to wear a knee brace. We are going to try meloxicam for when he was active in golfing. I discussed the risks and benefits of taking this medication, and I would like him to clarify with his manager latin whether he was okay to take his medication prior to taking it. He expressed understanding of this and will ask his manager latin at his appointment in 2 weeks. We are also going to refer him to pain management to see if anything further can be done for his pain, including possible nerve ablation. He will follow up with us as needed and will notify us if he does not hear from pain management. He expressed understanding and agreement with the plan. Assessment & Plan (04/01/2024 8:23 AM COTTON WASHER): Unfortunately, the patient continues to have left knee pain secondary to primary osteoarthritis of the left knee. He is not a good candidate for total knee replacement due to having a left femoral to anterior tibial femoral artery bypass graft. I discussed further treatment options with the patient including steroid injection, referral to pain management, or referral to [facility] reconstruct[facility] services to see if they would [...] 12/06/2017 Chest pain 11/25/2015 Congestive heart failure 11/25/2015 Acute subendocardial infarction 03/17/2015 Immunizations Immunization Administration Dates Next Due Influenza, Unspecified 03/13/2017,03/19/2005 Moderna SARS-CoV-2 Monovalent Vaccination (12+ Y RS) 08/06/2020,07/09/2020 Tdap 02/06/2018,06/28/2006 Social History Tobacco Use Types Packs/Day Years Used Date Smoking Tobacco: Every Day Cigarettes 0.2 60 Smokeless Tobacco: Never Tobacco Cessation:Ready to Q uit: Not Asked; Counseling Given: Not Answered [employer] Answer Date Recorded In the past 12 months has [employer], gas, oil, or water [employer] threatened to shut off services in your [...] How often do you attend chur or mu-ism services? Never 08/01/2023 Do you belong to any clubs o r organizations such as judaism groups, unions, fraternal or athletic groups, or [...] containing alc ohol? 2-3 times a week 07/24/2024 Average Number of Drinks Not on file 025 Frequency of Binge Drinking Not on file 07/11 Overall Financial Resource Strain (CARDIA) Answe r [...] place to sleep or slept in a prison (including now)? No 08/01/2023 Personal Safety Answer Date Recorded Have you ever been in or are you currently in a harmful physical or emotional relationship or is someone making you feel afraid or unsafe? Denies 08/29/2023 Sex and Gender Information Value Date Recorded Sex Assigned at Not on file Legal Sex Male 8:33 AM COTTON WASHER Gender Identity Not on file Sexual Orientation Not on file Last Filed Vital Signs Vital Sign Reading Time Taken Comments Blood Pressure 107/68 11/24/2024 1:06 PM CDT Pulse 77 11/24/2024 1:06 PM CDT Temperature 36.7 C (98 F) 11/24/2024 1:06 PM CDT Respiratory Rate 18 11/24/2024 1:06 PM CDT Oxygen Saturation 96% 11/24/2024 1:06 PM CDT Inhaled Oxygen Concentration - - Weight 76 kg (167 lb 8 oz) 11/24/2024 1:06 PM CD T Height 177.8 cm (5' 10) 11/24/2024 1:06 PM CDT Body Mass Index 24.03 11/24/2024 1:06 PM CDT Plan of Treatment Not on file Medical Devices Implanted Type Area Bi Developer Device Identifier Shelf Expiration Date Model / Serial / Lot Biotronik Ra Lead Setrox S-53-02/16/2016 Implanted:02/15 (Quantity not on file) Lead Heart [employer] SETROX S 53 / [id number] / Biotronik Rv Lead Protego S 65-02/16/2016 Implanted:02/15 (Quantity not on file) Lead Heart [employer] PROTEGO S 65 / [id number] / Cages N/A: Spine Lumbar Partial Knee Replacement Right: Knee Screws Right: First Toe Biotronik Icd Iperia 7 Dr-T-02/16/2016 Implanted:02/15 (Quantity not on file) Left: Chest Wall Wl [employer] 6mm 80cm Stretch Thin Wall Graft Vascular Heparin Propaten [id number] - [id number] - [id number] Implanted:Qty: 1 on 08/05/2023 by Carlos Lorenzo MD at [facility] Left: Groin Wl [employer] 01/07/2027 [id number] / [id number] / Insurance [facility] OFFICE [facility] CARE Advance Directives For more information, please contact: [phone] * Full Code (Latest Code Status on File) Date Activated Date Inactivated Comments 07/31/2023 6:23 PM 08/08/2023 8:34 PM * Full Code Date Activated Date Inactivated Comments 06/07/2023 6:19 PM 06/07/2023 10:25 PM Care Teams Business Development Associate Relationship Specialty Start Date End Date Yves Wilson DO PCP - General Internal Medicine 08/13/22 [place] [address] [address] [address] Consulting Physician Cardiology 12/03/22 Carlos Lorenzo MD [address] [facility] [address] [place] [address] [place] [address] Consulting Physician Vascular Surgery 08/08/23 Forrest Wise DO [facility] [address] [place] [address] [place] [address] Consulting Physician Orthopedic Surgery 07/08/24 Malena Mayo MD [address] [place] [address] [facility] [address] Consulting Physician Pain Management 07/08/24
--- OUTSIDE RECORDS SUMMARY | 2024-12-08 10:39 | XMS_ITS | Clinical Summary ---
Author Organization [facility] Address [address] [place] [address] Care Team Providers Care Precision Filer Hand Name Role Phone Colleen Montes MD Primary Care Provider [phone] Kaveh Bass MD Unavailable [phone] Source Comments [facility],non-owned Affiliates and Associated Physician Practices is amultiple site organization consisting of ambulatory clinics and hospital sitesin [place], [place], [place] and [place]. This disclosure is being madepursuant to the Care Everywhere program and may not contain all information available regarding this patient. Last updated 18.[facility] Allergies No known active allergies Medications * Be aware that medications may not be up to date on this document. Alwaysverify current medications with the patient. carvedilol (COREG) 6.25 MG tabletIndicati ons:Cardiomyop athy Take 6.25 mg by mouth 2 times daily with morning and evening meal Reasons: Disease of the Muscle of the Heart Active clopidogrel (PLAVIX) 75 MG tabletIndicati ons:Acute Coronary Syndrome Take 75 mg by mouth once daily Reasons: Acute Coronary Syndrome Active aspirin (ASPIRIN) 81 MG chew tablet Take 81 mg by mouth once daily Active HYDROcodone-ac etaminophen (NORCO) 5-325 MG tablet Take 1 tablet by mouth every 6 hours as needed 50 tablet 8 Active Additional Information Patient not taking.Reported on 08/19/2018 acetaminophen (TYLENOL) 325 MG tablet Take 1 tablet by mouth every 4 hours as needed Maximum allowable Acetaminophen amount = 4 Grams (4000 mg) / 24 hours. 10/22/201 8 Active docusate sodium (COLACE) 100 MG capsule Take 1 capsule by mouth 2 times daily 60 capsule 1 8 Active Additional Information Patient not taking.Reported on [...] at Not on file Legal Sex Male 1:54 PM CDT Gender Identity Not on file Sexual Orientation Not on file Last Filed Vital Signs Vital Sign Reading Time Taken Comments Blood Pressure 138/79 08/19/2018 8:41 AM CDT Pulse 77 08/19/2018 8:41 AM CDT Temperature 36.5 C (97.7 F) 08/19/2018 8:41 AM CDT Respiratory Rate 18 04/01/2018 8:27 AM PATIENT ACCOUNTS COORDINATOR Oxygen Saturation 100% 08/19/2018 8:41 AM CDT Inhaled Oxygen Concentration 21% 02/28/2018 6 :50 AM CDT Weight 77.7 kg (171 lb 4.8 oz) 08/19/2018 8:41 A M CDT Height 177.8 cm (5' 10) 08/19/2018 8:41 AM CDT Body Mass Index 24.58 08/19/2018 8:41 AM CDT Plan of Treatment Health Maintenance Due Date Last Done Comments HEPATITIS C SCREENING 02/10/1963 DTAP/TDAP/TD VACCINES (1 - Tdap) 1966 PNEUMOCOCCAL VACCINE 50+ (1 of 1 - PCV) 1997 ZOSTER VACCINE (1 of 2) 1997 Respiratory Syncytial Virus (RSV) Vaccine Pt: or over 60 yrs (1 - 1-dose 75+ series) 2022 COVID-19 VACCINE (2023-2 5 season) 2024 DEPRESSION SCREENING 05/13/2024 INFLUENZA VACCINE (#1) 2025 HEPATITIS B VACCINE Aged Out No longe r eligible based on patient's age to complete this topic HIB VACCINE Aged Out No longer eligi ble based on patient's age to complete this topic HPV VACCINE Aged Out No longer eligi ble based on patient's age to complete this topic MENINGOCOCCAL (Group B) VACC INE SHARED DECISION-MAKING Aged Out No longer eligibl e based on patient's age to complete this topic MENINGOCOCCAL GROUPS A/C/Y/W VACCINE Aged Out No longer eligible b ased on patient's age to complete this topic Medical Devices Implanted Type Area Manager Global Device Identifier Shelf Expiration Date Model / Serial / Lot Interbody Infusion Device Implanted:Qty: 2 on 02/28/2018 by Trip Langley MD at [facility] N/A: Spine Lumbar Medtronic Inc 07/05/2025 [id number] / / [id number] Screw Set Ti Spnl Brk Off Cd Hzn Implanted:Qty: 4 on 02/28/2018 by Trip Langley MD at [facility] N/A: Spine Lumbar Medtronic Sofamor [employer] [id number] / / Screw 7.5mm 50mm Spne Ma Solera Cd Hzn Implanted:Qty: 2 on 02/28/2018 by Trip Langley MD at [facility] N/A: Spine Lumbar Medtronic Sofamor [employer] [id number] / / Screw 7.5mm 45mm Spne Ma Solera Cd Hzn Implanted:Qty: 2 on 02/28/2018 by Trip Langley MD at [facility] N/A: Spine Lumbar Medtronic Sofamor [employer] [id number] / / David Spnl 35mm 5.5mm Cd Hzn Crv Cocrmo Implanted:Qty: 2 on 02/28/2018 by Trip Langley MD at [facility] N/A: Spine Lumbar Medtronic Inc [id number] / / Insurance MEDICARE MEDICARE MEDICAID - [place] Advance Directives * Full Code (Latest Code Status on File) Date Activated Date Inactivated Comments 02/28/2018 2:07 PM 03/03/2018 4:02 PM * Full Code Date Activated Date Inactivated Comments 02/28/2018 6:36 AM 02/28/2018 2:07 PM Care Teams Precision Filer Hand Relationship Specialty Start Date End Date Colleen Montes MD [address] [place] [address] PCP - General 01/07/18 Kaveh Bass MD [facility] [address] [address] Corporate Director Talent Assessment Cardiovascular Disease 01/09/18
--- OUTSIDE RECORDS SUMMARY | 2024-12-08 10:39 | XMS_ITS | Clinical Summary ---
Author Organization [facility] Address [address] [place] [id number] Care Team Providers Care Heel Slicker Name Role Phone Yves Wilson DO Primary Care Provider [phone] Kaveh Bass MD Unavailable [phone] Carlos Lorenzo MD Unavailable Forrest Wise DO Unavailable [phone] Malena Mayo MD Unavailable Allergies No known active allergies [...] 04/30/2023 Assessment & Plan (06/29/2024 10:30 AM VENEER JOINTER OPERATOR): Stable continue Coreg Assessment & Plan (12/20/2023 11:12 AM CDT): Stable continue Coreg Assessment & Plan (08/02/2023 7:27 AM CDT): Stable continue Coreg 6.25 mg. Assessment & Plan (06/12/2023 9:40 AM VENEER JOINTER OPERATOR): Stable continue Coreg 6.25 mg. Assessment & Plan (04/30/2023 11:35 AM VENEER JOINTER OPERATOR): Impression: Chronic stable. Plan: Continue carvedilol Arteriosclerosis of coronary artery 04/29/2023 04/29/2023 Cardiomyopathy 04/29/2023 04/29/2023 Chronic systolic heart failure 04/29/2023 1 06/30/2022 Disorder of the skin and subcutaneous tissue, un specified 04/29/2023 04/29/2023 Peripheral vascular disease, unspecified 023 04/29/2023 Assessment & Plan (06/29/2024 10:29 AM VENEER JOINTER OPERATOR): Widely patent left fem PT bypass. Continue [...] revascularization. Assessment & Plan (06/12/2023 9:40 AM VENEER JOINTER OPERATOR): Left lower extremity PVD with a left [...] him. Assessment & Plan (05/24/2023 10:27 AM VENEER JOINTER OPERATOR): Nonhealing ulcer to the left 1st toe [...] 04/29/2023 Assessment & Plan (06/29/2024 10:29 AM VENEER JOINTER OPERATOR): Stable continue Lipitor Assessment & Plan (12/20/2023 11:12 AM CDT): Stable continue Lipitor 40 mg. Assessment & Plan (08/02/2023 7:27 AM CDT): Stable Lipitor 40 mg. Assessment & Plan (06/12/2023 9:40 AM VENEER JOINTER OPERATOR): Recommend statin therapy. Assessment & Plan (04/30/2023 11:35 AM VENEER JOINTER OPERATOR): Impression: Chronic stable. Plan: Continue atorvastatin and Zetia Nail dystrophy 04/29/2023 04/29/2023 Neuropathy 04/29/2023 04/29/2023 Other general symptoms and signs 04/29/2023 04/29/2023 Other psoriasis 04/29/2023 04/29/2023 Rash and other nonspecific skin eruption 023 04/29/2023 Pressure ulcer of unspecified site, stage 1 04/1204/29/2023 Sensorineural hearing loss, bilateral 04/29/2023 04/29/2023 Open wound of left great toe 03/21/2023 Assessment & Plan (04/30/2023 11:34 AM VENEER JOINTER OPERATOR): Impression: Patient has an open ulceration to [...] ambulation. Assessment & Plan (03/21/2023 3:36 PM VENEER JOINTER OPERATOR): Unfortunately, the patient has a wound on his great toe. There is no evidence of infection. We will have to monitor this to determine if the patient will be okay to move forward with surgery on 04/11/2023. Patient will continue to follow up with his retail marketing coordinator for treatment of the wound. He will return next week on 03/28/[address] Wise to examine the wound and determine if we are able to move forward with surgery on 04/11/2023. Disorder of carotid artery 03/01/2023 Primary osteoarthritis of left knee 11/01/2022 Assessment & Plan (07/06/2024 9:07 AM VENEER JOINTER OPERATOR): I discussed treatment options today with the [...] would like him to clarify with his process worker whether he was okay to take his medication prior to taking it. He expressed understanding of this and will ask his process worker at his appointment in 2 weeks. We [...] plan. Assessment & Plan (04/01/2024 8:23 AM VENEER JOINTER OPERATOR): Unfortunately, the patient continues to have left knee pain secondary to primary osteoarthritis of the left knee. He is not a good candidate for total knee replacement due to having a left femoral to anterior tibial femoral artery bypass graft. I discussed further treatment options with the patient including steroid injection, referral to pain management, or referral to [place] [facility] to see if they would [...] heart failure 11/25/2015 Acute subendocardial infarction 03/17/2015 Encounters Date Type Department Care Team Description 11/24/2024 12:42 PM CDT - 11/24/2024 11:59 PM CDT Hospital Encounter [facility] [address] [address] Malena Mayo MD Primary osteoarthritis of left knee (Primary Dx) Discharge Disposition: Discharge to home or self care 10/26/2024 7:49 AM CDT - 10/26/2024 11:59 PM CDT Hospital Encounter [facility] [address] [address] Malena Mayo MD Primary osteoarthritis of left knee Discharge Disposition: Discharge to home or self care 10/22/2024 7:39 AM CDT - 10/22/2024 11:59 PM CDT Hospital Encounter [facility] [address] [facility] [address] [place] [address] Malena Mayo MD Primary osteoarthritis of left knee (Primary Dx) Discharge Disposition: Discharge to home or self care from Last 3 Months Immunizations Immunization Administration Dates Next Due Influenza, [...] Comments Hypertension Cardiomyopathy (HCC) CHF (congestive heart failure) (HCC) Myocardial infarct, old 2012 HLD (hyperlipidemia) mixed HL (hearing loss) bilat wears he aring aides Neuropathy feet Ischemic foot right great toe dressing intact seeing PA at Dr Wise office 03/21/23 also seeing pod. at [facility] Social History Tobacco Use Types Packs/Day Years Used Date Smoking Tobacco: Every Day Cigarettes 0.2 60 Smokeless Tobacco: Never Tobacco Cessation:Ready to Q uit: Not Asked; Counseling Given: Not Answered [facility] Utilities Answer Date Recorded In the past 12 months has [employer], gas, oil, or water company threatened to [...] often do you attend chur ch or anabaptism services? Never 08/01/2023 Do you belong to any clubs o r organizations such as lutheran groups, unions, fraternal or athletic groups, or [...] place to sleep or slept in a longterm (including now)? No 08/01/2023 Personal Safety Answer Date Recorded Have you ever been in or are you currently in a harmful physical or emotional relationship or is someone making you feel afraid or unsafe? Denies 08/29/2023 Sex and Gender Information Value Date Recorded Sex Assigned at Not on file Legal Sex Male 8:33 AM VENEER JOINTER OPERATOR Gender Identity Not on file Sexual Orientation [...] 11/24/2024 1:06 PM CDT Plan of Treatment Health Maintenance Due Date Last Done Comments Depression Screening 1945 Hepatitis C Screening 1945 Hepatitis B Screening 1965 Pneumococcal vaccine 65+ (1 of 2 - PCV) 1966 Zoster Vaccine (1 of 2) 1997 Well Visit 65+ 02/16/2012 Covid-19 Vaccine (3 - season) 2024, 07/09/2020 Fall Risk Assessment 08/07/2024 08/08/2023 Influenza Vaccine (#1) 2025 03/13/2017, 2004 DTaP/Tdap/Td Vaccine (3 - Td or Tdap) 02/07/2028, 06/28/2006 Medical Devices Implanted Type Area Data Manager Device Identifier Shelf Expiration Date Model / Serial / Lot Biotronik Ra Lead Setrox S-53-02/16/2016 Implanted:02/15 (Quantity not on file) Lead Heart Biotronik SETROX S 53 / [id number] / Biotronik Rv Lead Protego S 65-02/16/2016 Implanted:02/15 (Quantity not on file) Lead Heart Biotronik PROTEGO S 65 / [id number] / Cages N/A: Spine Lumbar Partial Knee Replacement Right: Knee Screws Right: First Toe Biotronik Icd [place] 7 Dr-T-02/16/2016 Implanted:02/15 (Quantity not on file) Left: Chest Wall [employer] [place] [employer] [place] 6mm 80cm Stretch Thin Wall Graft Vascular Heparin Propaten [id number] - [id number] - [id number] Implanted:Qty: 1 on 08/05/2023 by Carlos Lorenzo MD at [facility] Left: Groin [employer] [place] [employer] 01/07/2027 [id number] / [id number] / Insurance [facility] Member Subscriber Plan / Payer (Ef fective 2020-Present) Name:Ariel See Relation to Subscriber:Self Name:Ariel See Payer ID:[id number] (NAIC) Type:MEDICARE RISK OTHER Address: [address] CARE Advance Directives For more information, please contact: [phone] * Full Code (Latest Code Status on File) Date Activated Date Inactivated Comments 07/31/2023 6:23 PM 08/08/2023 8:34 PM * Full Code Date Activated Date Inactivated Comments 06/07/2023 6:19 PM 06/07/2023 10:25 PM Care Teams Heel Slicker Relationship Specialty Start Date End Date Yves Wilson DO PCP - General Internal Medicine 08/13/22 [place] [id number] [address] Consulting Physician Cardiology 12/03/22 Carlos Lorenzo MD [address] [facility] [address] [place] [address] [place] [id number] Consulting Physician Vascular Surgery 08/08/23 Forrest Wise DO [facility] [address] [place] [address] [place] [id number] Consulting Physician Orthopedic Surgery 07/08/24 Malena Mayo MD [address] [facility] [address] Consulting Physician Pain Management 07/08/24
== END 2024-12-08 10:25 | disposition home or self-care (01) ==
PROVIDERS: PCP Internal Medicine; Visit Provider Nurse Practitioner
DX: R91.1 Solitary pulmonary nodule (principal)
CPT/HCPCS: 78815; A9552

== ENCOUNTER 2024-12-10 09:54 | Outpatient (CLI) | payer OTHER, SELFPAY ==
--- OUTSIDE RECORDS SUMMARY | 2024-12-10 10:04 | XMS_ITS ---
Author Name Verna Charles Address Unknown Organization [place], [place] ([facility] [address]) Care Team Providers Care Nurse Discharge Planner Name Role Phone Unavailable Primary Care Physician Unavailab le History Of Present Illness 1. This is a 79 year old male who is being seen for foot evaluation. 2. This is a 79 year old male who is being seen for a chief complaint of a follow up wound, locatedon the right dorsal foot Additional HPI Comments: Here for follow up on wound, but also here for care of digital nail deformities Medications Medication Generic Name RxNorm Strength Strength Unit Route Dose Dose Form Frequency Date Started Date Ended Status Indication Sig gentamicin gentamic in 183177 0.1 % Topica l ointm ent 06/03/19 25 active Appl y to woun d destin Knowles r with sherice purcell Problems Problem Code Type Status Date of Diagnosis Date of Resolution Chronic ulcer of right foot (disorder) 46998065076 789922(SNOM ED) Diagnosis active 12/10/2024 Onychomycosis caused by dermatophyte (disorder) 492415429(S NOMED) Diagnosis active 12/10/2024 Chronic ulcer of right foot (disorder) 11276891325 099607(SNOM ED) Diagnosis active 11/11/2024 Chronic ulcer of right foot (disorder) 80379117920 919797(SNOM ED) Diagnosis active 10/21/2024 Contusion of toe(s) with damage to nail (disorder) 051564406(S NOMED) Diagnosis active 10/21/2024 Chronic ulcer of right foot (disorder) 81775850662 956530(SNOM ED) Diagnosis active 09/16/2024 Chronic ulcer of right foot (disorder) 91555280057 488553(SNOM ED) Diagnosis active 09/02/2024 Chronic ulcer of right foot (disorder) 54906351265 819056(SNOM ED) Diagnosis active 08/12/2024 Chronic ulcer of right foot (disorder) 50762784709 715671(SNOM ED) Diagnosis active 07/29/2024 Chronic ulcer of right foot (disorder) 47445641263 045828(SNOM ED) Diagnosis active 07/15/2024 Onychomycosis caused by dermatophyte (disorder) 600255921(S NOMED) Diagnosis active 07/15/2024 Callosity (disorder) 113407374(S NOMED) Diagnosis active 07/15/2024 Chronic ulcer of right foot (disorder) 06556762155 397413(SNOM ED) Diagnosis active 07/01/2024 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) 884394678(S NOMED) Diagnosis active 07/01/2024 Chronic ulcer of right foot (disorder) 94494257851 431642(SNOM ED) Diagnosis active 06/10/2024 Peripheral vascular disease (disorder) 778318266(S NOMED) Diagnosis active 06/03/2024 Metatarsalgia (finding) 43299697(SN OMED) Diagnosis active 06/03/2024 Chronic ulcer of right foot (disorder) 67216009045 785282(SNOM ED) Diagnosis active 06/03/2024 Onychomycosis caused by dermatophyte (disorder) 175513491(S NOMED) Diagnosis active 04/15/2024 Callosity (disorder) 974484302(S NOMED) Diagnosis active 04/15/2024 Onychomycosis caused by dermatophyte (disorder) 356619248(S NOMED) Diagnosis active 01/15/2024 Peripheral vascular disease (disorder) 688159045(S NOMED) Diagnosis active 01/15/2024 Arthritis (disorder) 0665473(SNO MED) Problem active Cerebrovascular accident (disorder) 267728412(S NOMED) Problem active Coronary arteriosclerosis (disorder) 92548287(SN OMED) Problem active Results No data Encounters I have advised other treatment modalities for the wound (TCC and imaging studies) but he is refusing. I have educated him on the risks of not doing so. He is wanting to keep with local wound care anddebridements to assure wound is stable. Service provided at [place], [place] ([facility]), [address] [facility] [address], [place], [place] [id number]. Office phone number is [phone]. Encounter Diagnosis Location Date / Time Type Non-pressure chronic ulcer o f other part of right foot with fat layer exposed (L97.512)Onychomycosis (B35.1) [place], [place] ([address] 12/10/2024 14:00:00 UTC NI Reason For Referral No data Procedures Procedure Date Debridement of nail (procedure) 12/11/19 12:00 am UTC Debridement of wound of skin (procedure) 12/10/2024 12:00 am UTC Dressing of wound (procedure) 12/10/2024 12:00 am UTC Dressing of wound (procedure) 11/11/2024 12:00 am UTC Debridement of wound of skin (procedure) 11/11/2024 12:00 am UTC Debridement of wound of skin (procedure) 10/21/2024 12:00 am UTC Dressing of wound (procedure) 10/21/2024 12:00 am UTC Dressing of wound (procedure) 09/16/2024 12:00 am UTC Debridement of wound of skin (procedure) 09/16/2024 12:00 am UTC Microbial culture (procedure) 09/02/2024 12:00 am UTC Debridement of wound of skin (procedure) 09/02/2024 12:00 am UTC Dressing of wound (procedure) 09/02/2024 12:00 am UTC Debridement of wound of skin (procedure) 08/12/2024 12:00 am UTC Dressing of wound (procedure) 08/12/2024 12:00 am UTC Debridement of wound of skin (procedure) 07/29/2024 12:00 am UTC Dressing of wound (procedure) 07/29/2024 12:00 am UTC Dressing of wound (procedure) 07/15/2024 12:00 am UTC Microbial culture (procedure) 07/15/2024 12:00 am UTC Reduction of callus (procedure) 07/16/19 12:00 am UTC Debridement of wound of skin (procedure) 07/15/2024 12:00 am UTC Debridement of nail (procedure) 07/16/19 12:00 am UTC Dressing of wound (procedure) 07/01/2024 12:00 am UTC Debridement of wound of skin (procedure) 07/01/2024 12:00 am UTC Debridement of wound of skin (procedure) 06/10/2024 12:00 am UTC Dressing of wound (procedure) 06/10/2024 12:00 am UTC Microbial culture (procedure) 06/03/2024 12:00 am UTC Debridement of wound of skin (procedure) 06/03/2024 12:00 am UTC Dressing of wound (procedure) 06/03/2024 12:00 am UTC Reduction of callus (procedure) 04/15/20 24 12:00 am UTC Debridement of nail (procedure) 04/15/20 24 12:00 am UTC Debridement of nail (procedure) 01/15/20 24 12:00 am UTC Total replacement of left hip joint (pro cedure) Total replacement of right knee joint (p rocedure) Documentation of past medical history (p rocedure) Total replacement of left hip joint (pro cedure) Total replacement of right knee joint (p rocedure) Documentation of past medical history (p rocedure) Total replacement of right knee joint (p rocedure) Documentation of past medical history (p rocedure) Total replacement of left hip joint (pro cedure) Total replacement of left hip joint (pro cedure) Documentation of past medical history (p rocedure) Total replacement of right knee joint (p rocedure) Documentation of past medical history (p rocedure) Total replacement of left hip joint (pro cedure) Total replacement of right knee joint (p rocedure) Documentation of past medical history (p rocedure) Total replacement of left hip joint (pro cedure) Total replacement of right knee joint (p rocedure) Documentation of past medical history (p rocedure) Total replacement of right knee joint (p rocedure) Total replacement of left hip joint (pro cedure) Total replacement of right knee joint (p rocedure) Documentation of past medical history (p rocedure) Total replacement of left hip joint (pro cedure) Total replacement of left hip joint (pro cedure) Total replacement of right knee joint (p rocedure) Documentation of past medical history (p rocedure) Documentation of past medical history (p rocedure) Total replacement of left hip joint (pro cedure) Total replacement of right knee joint (p rocedure) Documentation of past medical history (p rocedure) Total replacement of left hip joint (pro cedure) Total replacement of right knee joint (p rocedure) Total replacement of right knee joint (p rocedure) Documentation of past medical history (p rocedure) Total replacement of left hip joint (pro cedure) Total replacement of left hip joint (pro cedure) Documentation of past medical history (p rocedure) Total replacement of right knee joint (p rocedure) Documentation of past medical history (p rocedure) Total replacement of right knee joint (p rocedure) Total replacement of left hip joint (pro cedure) Review Of Systems No Data Assessment 1.Non-pressure chronic ulcer of other part of right foot with fat layer exposedWound Dressings: Wound Dressings - Gauze; Wound Care Blocks - Other Instructions #3 - Patient to use gentamicin daily and cover this with gauze.Excisional Debridement - No PathologyCounseling - Wound Care2.OnychomycosisToenail Debridement With Findings: Instruments - clippers and Dremel rotary jacques; Other Instruments- By about 30%. Plan of Care Future visit for 01/07/2025 - Follow up in 4 weeks Code Detail Instructions 304003 gentamicin 0.1 % topical ointmen t Apply to wound daily. Cover with gauze 572505 gentamicin 0.1 % topical ointmen t Apply to wound daily. Cover with gauze 424507 gentamicin 0.1 % topical ointmen t Apply to wound daily. Cover with gauze Instructions * I counseled the patient regarding the following: ??? Wound Care: We counseled that wounds may result from trauma, surgery, pressure, infection, vascular insufficiency, systemic conditions, the presence of foreign material, or malignancy. Conservative wound care generally involves debridement of nonv iable tissues, creation of a moist wound healing environment, management of correctable conditions,abstinence from nicotine, allevation of pressure and offloading of the site, optimizing blood supply and treating infection, if present. Surgery may be required and wound closure and repair are possible in many, but not all, cases. ??? Expectations: We counseled that final healing of a wound, either spontaneously or surgically, is not guaranteed. Multiple approaches may be required, and additional specialists and opinions may be solicited. Non-healing wounds may result from uncorrectable factors or unrecoverable tissue loss. Patient compliance with treatment recommendations was emphasized. ??? Contact office if: the patient experiences purulent drainage, redness, swelling, severe pain or tenderness, loss of function, fever, altered mental status, difficulty breathing, or other concerning s ymptoms. ??? I instructed patient not to get wound wet. Pt is only to clean this with sterile normal saline or wound cleanser. 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
--- OUTSIDE RECORDS SUMMARY | 2024-12-10 10:04 | XMS_ITS | Clinical Summary ---
Author Organization [facility] Address [address] [place] [id number] Care Team Providers Care Unhairer Name Role Phone Yves Wilson DO Primary Care Provider [phone] Kaveh Bass MD Unavailable [phone] Carlos Lorenzo MD Unavailable Forrest Wise DO Unavailable [phone] Malena Mayo MD Unavailable Allergies No [...] 04/30/2023 Assessment & Plan (06/29/2024 10:30 AM LABOR GANG SUPERVISOR): Stable continue Coreg Assessment & Plan (12/20/2023 11:12 AM CDT): Stable continue Coreg Assessment & Plan (08/02/2023 7:27 AM CDT): Stable continue Coreg 6.25 mg. Assessment & Plan (06/12/2023 9:40 AM LABOR GANG SUPERVISOR): Stable continue Coreg 6.25 mg. Assessment & Plan (04/30/2023 11:35 AM LABOR GANG SUPERVISOR): Impression: Chronic stable. Plan: Continue carvedilol Arteriosclerosis of coronary artery 04/29/2023 04/29/2023 Cardiomyopathy 04/29/2023 04/29/2023 Chronic systolic heart failure 04/29/2023 1 06/30/2022 Disorder of the skin and subcutaneous tissue, un specified 04/29/2023 04/29/2023 Peripheral vascular disease, unspecified 023 04/29/2023 Assessment & Plan (06/29/2024 10:29 AM LABOR GANG SUPERVISOR): Widely patent left fem PT bypass. Continue [...] revascularization. Assessment & Plan (06/12/2023 9:40 AM LABOR GANG SUPERVISOR): Left lower extremity PVD with a left [...] him. Assessment & Plan (05/24/2023 10:27 AM LABOR GANG SUPERVISOR): Nonhealing ulcer to the left 1st toe [...] 04/29/2023 Assessment & Plan (06/29/2024 10:29 AM LABOR GANG SUPERVISOR): Stable continue Lipitor Assessment & Plan (12/20/2023 11:12 AM CDT): Stable continue Lipitor 40 mg. Assessment & Plan (08/02/2023 7:27 AM CDT): Stable Lipitor 40 mg. Assessment & Plan (06/12/2023 9:40 AM LABOR GANG SUPERVISOR): Recommend statin therapy. Assessment & Plan (04/30/2023 11:35 AM LABOR GANG SUPERVISOR): Impression: Chronic stable. Plan: Continue atorvastatin and Zetia Nail dystrophy 04/29/2023 04/29/2023 Neuropathy 04/29/2023 04/29/2023 Other general symptoms and signs 04/29/2023 04/29/2023 Other psoriasis 04/29/2023 04/29/2023 Rash and other nonspecific skin eruption 023 04/29/2023 Pressure ulcer of unspecified site, stage 1 04/1204/29/2023 Sensorineural hearing loss, bilateral 04/29/2023 04/29/2023 Open wound of left great toe 03/21/2023 Assessment & Plan (04/30/2023 11:34 AM LABOR GANG SUPERVISOR): Impression: Patient has an open ulceration to [...] ambulation. Assessment & Plan (03/21/2023 3:36 PM LABOR GANG SUPERVISOR): Unfortunately, the patient has a wound on his great toe. There is no evidence of infection. We will have to monitor this to determine if the patient will be okay to move forward with surgery on 04/11/2023. Patient will continue to follow up with his frozen pie maker for treatment of the wound. He will return next week on 03/28/[address] Wise to examine the wound and determine if we are able to move forward with surgery on 04/11/2023. Disorder of carotid artery 03/01/2023 Primary osteoarthritis of left knee 11/01/2022 Assessment & Plan (07/06/2024 9:07 AM LABOR GANG SUPERVISOR): I discussed treatment options today with the [...] would like him to clarify with his freezing room worker whether he was okay to take his medication prior to taking it. He expressed understanding of this and will ask his freezing room worker at his appointment in 2 weeks. [...] plan. Assessment & Plan (04/01/2024 8:23 AM LABOR GANG SUPERVISOR): Unfortunately, the patient continues to have left knee pain secondary to primary osteoarthritis of the left knee. He is not a good candidate for total knee replacement due to having a left femoral to anterior tibial femoral artery bypass graft. I discussed further treatment options with the patient including steroid injection, referral to pain management, or referral to [place] [facility] to see if they would [...] - 11/24/2024 11:59 PM CDT Hospital Encounter [facility] [address] [address] Malena Mayo MD Primary osteoarthritis of left knee (Primary Dx) Discharge Disposition: Discharge to home or self care 10/26/2024 7:49 AM CDT - 10/26/2024 11:59 PM CDT Hospital Encounter [facility] [address] [address] Malena Mayo MD Primary osteoarthritis of left knee Discharge Disposition: Discharge to home or self care 10/22/2024 7:39 AM CDT - 10/22/2024 11:59 PM CDT Hospital Encounter [facility] [address] [facility] [address] [place] [address] Malena Mayo MD Primary osteoarthritis of left [...] Wise office 03/21/23 also seeing pod. at [facility] Social History Tobacco Use Types Packs/Day Years Used Date Smoking Tobacco: Every Day Cigarettes 0.2 60 Smokeless Tobacco: Never Tobacco Cessation:Ready to Q uit: Not Asked; Counseling Given: Not Answered [facility] Utilities Answer Date Recorded In the past 12 months has [employer], gas, oil, or water company threatened to [...] often do you attend chur ch or mandaeism services? Never 08/01/2023 Do you belong to any clubs o r organizations such as jehovah's witness groups, unions, fraternal or athletic groups, or [...] place to sleep or slept in a halfway (including now)? No 08/01/2023 Personal Safety Answer Date Recorded Have you ever been in or are you currently in a harmful physical or emotional relationship or is someone making you feel afraid or unsafe? Denies 08/29/2023 Sex and Gender Information Value Date Recorded Sex Assigned at Not on file Legal Sex Male 8:33 AM LABOR GANG SUPERVISOR Gender Identity Not on file Sexual Orientation [...] 02/07/2028, 06/28/2006 Medical Devices Implanted Type Area Cytogenetics Laboratory Manager Device Identifier Shelf Expiration Date Model / Serial / Lot Biotronik Ra Lead Setrox S-53-02/16/2016 Implanted:02/15 (Quantity not on file) Lead Heart Biotronik SETROX S 53 / [id number] / Biotronik Rv Lead Protego S 65-02/16/2016 Implanted:02/15 (Quantity not on file) Lead Heart Biotronik PROTEGO S 65 / [id number] / Cages N/A: Spine Lumbar Partial Knee Replacement Right: Knee Screws Right: First Toe Biotronik Icd Iperia 7 Dr-T-02/16/2016 Implanted:02/15 (Quantity not on file) Left: Chest Wall Wl [employer] Tenmile 6mm 80cm Stretch Thin Wall Graft Vascular Heparin Propaten [id number] - [id number] - [id number] Implanted:Qty: 1 on 08/05/2023 by Carlos Lorenzo MD at [facility] Left: Groin Wl [employer] 01/07/2027 [id number] / [id number] 1 / Insurance [facility] Member Subscriber Plan / Payer (Ef fective 2020-Present) Name:Ariel See Relation to Subscriber:Self Name:Ariel See Payer ID:[id number] (NAIC) Type:MEDICARE RISK OTHER Address: [address] CARE Advance Directives For more information, please contact: [phone] * Full Code (Latest Code Status on File) Date Activated Date Inactivated Comments 07/31/2023 6:23 PM 08/08/2023 8:34 PM * Full Code Date Activated Date Inactivated Comments 06/07/2023 6:19 PM 06/07/2023 10:25 PM Care Teams Unhairer Relationship Specialty Start Date End Date Yves Wilson DO PCP - General Internal Medicine 08/13/22 [place] [address] [address] Consulting Physician Cardiology 12/03/22 Carlos Lorenzo MD [address] [facility] [address] [place] [address] [place] [address] Consulting Physician Vascular Surgery 08/08/23 Forrest Wise DO [facility] [address] [place] [address] [place] [address] Consulting Physician Orthopedic Surgery 07/08/24 Malena Mayo MD [address] [facility] [address] Consulting Physician Pain Management 07/08/24
--- OUTSIDE RECORDS SUMMARY | 2024-12-10 10:04 | XMS_ITS | Clinical Summary ---
Author Organization [facility] Address [address] [facility] [place] [address] Care Team Providers Care Private Duty Aide Name Role Phone Colleen Montes MD Primary Care Provider [phone] Kaveh Bass MD Unavailable [phone] Source Comments [facility],non-owned Affiliates and Associated Physician Practices is amultiple site organization consisting of ambulatory clinics and hospital sitesin [place], [place], [place] and [place]. This disclosure is being madepursuant to the Care Everywhere program and may not contain all information available regarding this patient. Last updated 18.[facility] Allergies No known active allergies Medications * [...] CDT Respiratory Rate 18 04/01/2018 8:27 AM FIELD SERVICE SUPERVISOR Oxygen Saturation 100% 08/19/2018 8:41 AM CDT [...] this topic Medical Devices Implanted Type Area Production Honing Machine Operator Device Identifier Shelf Expiration Date Model / Serial / Lot Interbody Infusion Device Implanted:Qty: 2 on 02/28/2018 by Trip Langley MD at [facility] N/A: Spine Lumbar Med[employer] Inc 07/05/2025 [id number] / / [id number] Screw Set Ti Spnl Brk Off Cd Hzn Implanted:Qty: 4 on 02/28/2018 by Trip Langley MD at [facility] N/A: Spine Lumbar Medtronic [employer] [id number] / / Screw 7.5mm 50mm Spne Ma Solera Cd Hzn Implanted:Qty: 2 on 02/28/2018 by Trip Langley MD at [facility] N/A: Spine Lumbar Medtronic [employer] [id number] / / Screw 7.5mm 45mm Spne Ma Solera Cd Hzn Implanted:Qty: 2 on 02/28/2018 by Trip Langley MD at [facility] N/A: Spine Lumbar Medtronic [employer] [id number] / / David Spnl 35mm 5.5mm Cd Hzn Crv Cocrmo Implanted:Qty: 2 on 02/28/2018 by Trip Langley MD at [facility] N/A: Spine Lumbar Med[employer] Inc [id number] / / Insurance MEDICARE MEDICARE MEDICAID - [place] Advance Directives * Full Code (Latest Code Status on File) Date Activated Date Inactivated Comments 02/28/2018 2:07 PM 03/03/2018 4:02 PM * Full Code Date Activated Date Inactivated Comments 02/28/2018 6:36 AM 02/28/2018 2:07 PM Care Teams Private Duty Aide Relationship Specialty Start Date End Date Colleen Montes MD [address] [place] [address] PCP - General 01/07/18 Kaveh Bass MD [facility] [place] [address] Care Advocate Cardiovascular Disease 01/09/18
--- OUTSIDE RECORDS SUMMARY | 2024-12-10 10:04 | XMS_ITS | Referral Summary ---
Author Organization [facility] Address [address] [place] [id number] Care Team Providers Care Biodiesel Plant Operations Engineer Name Role Phone Yves Wilson DO Primary Care Provider [phone] Kaveh Bass MD Unavailable [phone] Carlos Lorenzo MD Unavailable Forrest Wise DO Unavailable [phone] Malena Mayo MD Unavailable Encounters Date Type Department Care Team Description 11/24/2024 12:42 PM CDT - 11/24/2024 11:59 PM CDT Hospital Encounter [facility] [address] [address] Malena Mayo MD Primary osteoarthritis of left knee (Primary Dx) Discharge Disposition: Discharge to home or self care 10/26/2024 7:49 AM CDT - 10/26/2024 11:59 PM CDT Hospital Encounter [facility] [address] [address] Malena Mayo MD Primary osteoarthritis of left knee Discharge Disposition: Discharge to home or self care 10/22/2024 7:39 AM CDT - 10/22/2024 11:59 PM CDT Hospital Encounter [facility] [address] [address] Malena Mayo MD Primary osteoarthritis of left [...] 04/30/2023 Assessment & Plan (06/29/2024 10:30 AM CLEAT LAYER): Stable continue Coreg Assessment & Plan (12/20/2023 11:12 AM CDT): Stable continue Coreg Assessment & Plan (08/02/2023 7:27 AM CDT): Stable continue Coreg 6.25 mg. Assessment & Plan (06/12/2023 9:40 AM CLEAT LAYER): Stable continue Coreg 6.25 mg. Assessment & Plan (04/30/2023 11:35 AM CLEAT LAYER): Impression: Chronic stable. Plan: Continue carvedilol Arteriosclerosis of coronary artery 04/29/2023 04/29/2023 Cardiomyopathy 04/29/2023 04/29/2023 Chronic systolic heart failure 04/29/2023 1 06/30/2022 Disorder of the skin and subcutaneous tissue, un specified 04/29/2023 04/29/2023 Peripheral vascular disease, unspecified 023 04/29/2023 Assessment & Plan (06/29/2024 10:29 AM CLEAT LAYER): Widely patent left fem PT bypass. Continue [...] revascularization. Assessment & Plan (06/12/2023 9:40 AM CLEAT LAYER): Left lower extremity PVD with a left [...] him. Assessment & Plan (05/24/2023 10:27 AM CLEAT LAYER): Nonhealing ulcer to the left 1st toe [...] 04/29/2023 Assessment & Plan (06/29/2024 10:29 AM CLEAT LAYER): Stable continue Lipitor Assessment & Plan (12/20/2023 11:12 AM CDT): Stable continue Lipitor 40 mg. Assessment & Plan (08/02/2023 7:27 AM CDT): Stable Lipitor 40 mg. Assessment & Plan (06/12/2023 9:40 AM CLEAT LAYER): Recommend statin therapy. Assessment & Plan (04/30/2023 11:35 AM CLEAT LAYER): Impression: Chronic stable. Plan: Continue atorvastatin and Zetia Nail dystrophy 04/29/2023 04/29/2023 Neuropathy 04/29/2023 04/29/2023 Other general symptoms and signs 04/29/2023 04/29/2023 Other psoriasis 04/29/2023 04/29/2023 Rash and other nonspecific skin eruption 023 04/29/2023 Pressure ulcer of unspecified site, stage 1 04/1204/29/2023 Sensorineural hearing loss, bilateral 04/29/2023 04/29/2023 Open wound of left great toe 03/21/2023 Assessment & Plan (04/30/2023 11:34 AM CLEAT LAYER): Impression: Patient has an open ulceration to [...] ambulation. Assessment & Plan (03/21/2023 3:36 PM CLEAT LAYER): Unfortunately, the patient has a wound on his great toe. There is no evidence of infection. We will have to monitor this to determine if the patient will be okay to move forward with surgery on 04/11/2023. Patient will continue to follow up with his paintings conservator for treatment of the wound. He will return next week on 03/28/[address] Wise to examine the wound and determine if we are able to move forward with surgery on 04/11/2023. Disorder of carotid artery 03/01/2023 Primary osteoarthritis of left knee 11/01/2022 Assessment & Plan (07/06/2024 9:07 AM CLEAT LAYER): I discussed treatment options today with the [...] would like him to clarify with his sales operations specialist whether he was okay to take his medication prior to taking it. He expressed understanding of this and will ask his sales operations specialist at his appointment in 2 weeks. We [...] plan. Assessment & Plan (04/01/2024 8:23 AM CLEAT LAYER): Unfortunately, the patient continues to have left knee pain secondary to primary osteoarthritis of the left knee. He is not a good candidate for total knee replacement due to having a left femoral to anterior tibial femoral artery bypass graft. I discussed further treatment options with the patient including steroid injection, referral to pain management, or referral to [facility] to see if they would [...] uit: Not Asked; Counseling Given: Not Answered [employer] Answer Date Recorded In the past 12 months has [employer], gas, oil, or water [employer] threatened to shut off services in your [...] How often do you attend chur or moravian services? Never 08/01/2023 Do you belong to any clubs o r organizations such as scientology groups, unions, fraternal or athletic groups, or [...] place to sleep or slept in a usp (including now)? No 08/01/2023 Personal Safety Answer Date Recorded Have you ever been in or are you currently in a harmful physical or emotional relationship or is someone making you feel afraid or unsafe? Denies 08/29/2023 Sex and Gender Information Value Date Recorded Sex Assigned at Not on file Legal Sex Male 8:33 AM CLEAT LAYER Gender Identity Not on file Sexual Orientation [...] on file Medical Devices Implanted Type Area Flexographic Press Operator Device Identifier Shelf Expiration Date Model / Serial / Lot Biotronik Ra Lead Setrox S-53-02/16/2016 Implanted:02/15 (Quantity not on file) Lead Heart Biotronik SETROX S 53 / [id number] / Biotronik Rv Lead Protego S 65-02/16/2016 Implanted:02/15 (Quantity not on file) Lead Heart Biotronik PROTEGO S 65 / [id number] / Cages N/A: Spine Lumbar Partial Knee Replacement Right: Knee Screws Right: First Toe Biotronik Icd [place] 7 Dr-T-02/16/2016 Implanted:02/15 (Quantity not on file) Left: Chest Wall [employer] [place] 6mm 80cm Stretch Thin Wall Graft Vascular Heparin Propaten [id number] - [id number] - [id number] Implanted:Qty: 1 on 08/05/2023 by Carlos Lorenzo MD at [facility] Left: Groin [employer] 01/07/2027 [id number] / [id number] / Insurance [facility] [employer] [facility] Advance Directives For more information, please contact: [phone] * Full Code (Latest Code Status on File) Date Activated Date Inactivated Comments 07/31/2023 6:23 PM 08/08/2023 8:34 PM * Full Code Date Activated Date Inactivated Comments 06/07/2023 6:19 PM 06/07/2023 10:25 PM Care Teams [employer] Plant Operations Engineer Relationship Specialty Start Date End Date Yves Wilson DO PCP - General Internal Medicine 08/13/22 [place] [id number] [address] [address] Consulting Physician Cardiology 12/03/22 Carlos Lorenzo MD [address] [facility] [address] [place] [address] [place] [id number] Consulting Physician Vascular Surgery 08/08/23 Forrest Wise DO [facility] [address] [place] [address] [place] [id number] Consulting Physician Orthopedic Surgery 07/08/24 Malena Mayo MD [address] [place] [address] [facility] [address] Consulting Physician Pain Management 07/08/24
[2024-12-10 13:09] LABS: Hematocrit 42.5 % (42.0-52.0); Hemoglobin 13.9 g/dL (14.0-18.0); Immature Granulocyte Percent A 0.3 % (0-0.5); Lymphocytes Absolute Auto 1.54 K/mm3 (0.9-3.2); Mean Corpuscular HGB Conc 32.7 g/dl (32-36); Mean Corpuscular Hemoglobin 31.6 pg (26-34); Mean Corpuscular Volume 96.6 fl (80-100); Nucleated Red Blood Cells Absolute Auto 0.000 K/mm3 (0.0-0.012); Nucleated Red Blood Cells Perc 0.0 % (0.0-0.2); Platelet Count Result 168 k/mm3 (150-375); Red Blood Count 4.40 M/mm3 (4.6-6.20); White Blood Count 7.3 K/mm3 (4.5-10.0)
[2024-12-10 13:13] LABS: Alanine Aminotransferase 20 U/L (6-50); Albumin Level 3.9 g/dL (3.5-5.1); Alkaline Phosphatase 75 U/L (38-126); Anion Gap 7 mmol/L (4-12); Aspartate Amino Transferase 55 U/L (17-59); Bilirubin,Total 0.4 mg/dL (0.2-1.3); Blood Urea Nitrogen 14 mg/dL (9-20); Calcium 8.7 mg/dL (8.4-10.2); Carbon Dioxide 23 mmol/L (22-30); Chloride 107 mmol/L (98-107); Cholesterol 223 mg/dL (0-200); Estimated Glomerular Filt Rate > 60; Glucose 98 mg/dL (65-110); HDL Direct 40 mg/dL; Potassium 4.0 mmol/L (3.4-5.0); Sodium 137 mmol/L (137-145); Total Protein 7.1 g/dL (6.3-8.2); Triglycerides 223 mg/dL (<150)
== END 2024-12-10 09:55 | disposition home or self-care (01) ==
LOC: ANHGOSHLAB 09:55
PROVIDERS: PCP Internal Medicine; Visit Provider Nurse Practitioner
DX: I25.85 Chronic coronary microvascular dysfunction (principal)
CPT/HCPCS: 36415; 80053; 80061; 85025